=== PATIENT | female | born 1960 | race Caucasian/White ===

== ENCOUNTER 2017-03-25 22:40 | Inpatient (IN) | payer OTHER ==
[~2017-03-25] VITALS: Ht 157.5 cm; Wt 100.9 kg
[~2017-03-25 22:40] MED LIST: ALBU0.086 NEB; ALBU8I INH; CETI10 PO; FLUT1SPR9 EACH NARE; HYDR50 PO; NAPR220T95 PO; NEBUMIS6 INH; TRUSMIS52; VENTAER INH
[2017-03-25] MEDS ORDERED: IOHEXOL 350 MG/ML 10 ML VIAL (for RAD DIAG) IVCONTRAST ONE (22:41)
[2017-03-25 22:44] VITALS: BP 132/93; PULSE 129; RESP 20; TEMP 98.2; O2SAT 96
--- NOTE | 2017-03-25 22:53 | PD ---
HPI Chief Complaint: Respiratory Distress Time Seen by Provider: 22:50 Travel History International Travel<30 days: No Contact w/Intl Traveler<30days: No Traveled to known affect area: No History of Present Illness HPI The patient is a 56 year old female who presents to the [facility] emergency department with a history of shortness of breath that has been coming and going for the last 6 weeks. The patient reports that she saw her primary care physician regarding this near the onset and was treated with a Z-Samir, nebulizer treatments, a rescue inhaler, and a Medrol Dosepak taper. The patient reports that she briefly felt improved for 2 weeks and then had a recurrence of symptoms including cough, congestion, shortness of breath with exertion. She again saw her primary care physician and had a chest x-ray done which showed evidence of pneumonia, therefore the patient was treated with a course of Levaquin. She reports that she completed that course approximately a week ago. She reports that over the last 2 days she's had a recurrence of symptoms with cough that is drying character, shortness of breath with exertion and wheezing. The patient reports having a medical history of aortic stenosis followed by Dr. George. She denies having any known recent fevers. She denies having any chest pain or pressure. She reports having early say tidy with decreased appetite for the last 2 days. She denies having any nausea, vomiting, or diarrhea. She reports that she last moved her bowels earlier today. She denies having any blood in her stool or black or tarry stools. She reports that she has had increased lower extremity edema for the last 2 weeks. She denies having any prior history of DVT or PE. On review of systems otherwise, the patient denies having any neck pain, abdominal pain, urinary symptoms, or neurologic symptoms. [facility] Past Medical History Narrative Medical The patient's past medical history is significant for asthma, aortic stenosis, arthritis, carpal tunnel syndrome. Asthma: Yes Cardiovascular Problems: Yes (atrial stenosis) Diminished Hearing: No Musculoskeletal: Yes (DJD) Neurologic: Yes (CARPAL TUNNEL) Respiratory: Yes (asthma) Past Surgical History Narrative Surgical The patient's past surgical history is significant for 3 prior C-sections, bilateral hernia repair Section: Yes (X 3) Tonsillectomy: Yes Other Surgery: Yes (HERNIA REPAIR) Social History Alcohol Use: Yes (2 TIMES A YEAR) Tobacco Use: No Substance Use: No Allergies-Medications (Allergen,Severity, Reaction): Coded Allergies: doxycycline (Verified Allergy, Mild, BLURRED VISION, 03/25/17) minocycline (Verified Allergy, Mild, BLURRED VISION, 03/25/17) tigecycline (Verified Allergy, Mild, BLURRED VISION, 03/25/17) Reported Meds & Prescriptions Reported Meds & Active Scripts Active Ventolin Hfa 18 GM Inh (Albuterol Sulfate) 90 Mcg/Act Aer 2 Puff INH Q4H PRN Trusheer Stostockin1 Stocking Mis Units Flonase Allergy Relief Ch (Fluticasone Propionate (Nasal)) 50 Mcg/Act Spr 1 [place] EACH NARE DAILY Proventil Ud 0.083% (2.5 Mg/3 Ml) (Albuterol Sulfate) 2.5 Mg/3 Ml Inha 2.5 Mg NEB Q6HR Nebulizer (Miscellaneous Medication) Mis 1 Unit INH DIRECTED Cetirizine Hcl 10 Mg Tab 10 Mg PO DAILY Ventolin Hfa (Albuterol Sulfate) 8 Gm Aero 2 Puff INH Q4 PRN * SHAKE WELL BEFORE USE * Vistaril 50 Mg50 Mg 50 Mg Cap 50 Mg PO Q6H PRN Reported Aleve (Naproxen Sodium) 220 Mg Tab 220 Mg PO BID Review of Systems General / Constitutional: No: Fever Eyes: No: Visual changes HENT: No: Headaches Cardiovascular: Positive: Dyspnea on exertion, Edema, No: Chest Pain or Discomfort Respiratory: Positive: Cough, Shortness of Breath, Wheezing Gastrointestinal: Positive: Loss of Appetite, No: Nausea, Vomiting, Diarrhea, Abdominal Pain, Changes in Bowel Habits, Indigestion Genitourinary: No: Dysuria Musculoskeletal: No: Pain Skin: No Rash Neurologic: No: Weakness Psychiatric: No: Depression Endocrine: No: Polydipsia Hematologic/Lymphatic: No: Easy Bruising Physical Exam Narrative General: The patient is a well-developed well-nourished female, tachypneic on arrival, otherwise in no acute distress. Head and Neck exam: Head is normocephalic atraumatic. Eyes: EOMI, pupils are equal round and reactive to light. Nose: Midline septum with pink mucous membranes Mouth: Dentition unremarkable. Moist mucus membranes. Posterior oropharynx is not erythematous. No tonsillar hypertrophy. Uvula midline. Airway patent. Neck: No palpable lymphadenopathy. No nuchal rigidity. No thyromegaly. Cardiovascular: Sinus tachycardia in the 120s with a high-pitched systolic murmur best audible over the second intercostal space on the right. 2/6 systolic murmur. No gallops or rubs. No pulse deficit to the extremities on simultaneous auscultation and palpation of her radial artery. Lungs: Crackles are audible in bilateral lung bases, anterior wheezing was noted on the right side, no rhonchi. No accessory muscle use. Tachypnea is noted. No paroxysmal abdominal breathing or tripoding. Abdomen: Soft, without tenderness to palpation in all 4 quadrants of the abdomen. No guarding, rebound, or rigidity. Bowel sounds are audible. No tenderness on palpation of McBurney's point. Negative Teague's sign. Extremities: No clubbing or cyanosis. The patient has 1+ edema bilateral lower extremities. 2+ pulses in all 4 extremities. No calf tenderness on palpation. Negative Homans sign. No palpable cords. Back: No costovertebral angle tenderness to palpation. Neurologic Exam: Grossly nonfocal. Skin Exam: No rash noted. Intact skin that is warm and dry. Data Data Last Documented VS Vital Signs Date Time Temp Pulse Resp B/P (MAP) Pulse Ox O2 Delivery O2 Flow Rate FiO2 03/25/17 23:06 20 97 Nasal Cannula 2.00 03/25/17 22:44 98.2 129 132/93 (106) Orders Orders Electrocardiogram (03/25/17 23:04) Complete Blood Count With Diff (03/25/17 23:04) Comprehensive Metabolic Panel (03/25/17 23:04) Creatine Kinase (Cpk) (03/25/17 23:04) Ckmb (Isoenzyme) Profile (03/25/17 23:04) Troponin I (03/25/17 23:04) B-Type Natriuretic Peptide (03/25/17 23:04) Prothrombin Time / Inr (Pt) (03/25/17 23:04) Act Partial Throm Time (Ptt) (03/25/17 23:04) Blood Culture (03/25/17 23:04) D-Dimer (03/25/17 23:04) Magnesium (Mg) (03/25/17 23:04) Thyroid Stimulating Hormone (03/25/17 23:04) Chest, Single Ap (03/25/17 23:04) Iv Access Insert/Monitor (03/25/17 23:04) Ecg Monitoring (03/25/17 23:04) Oximetry (03/25/17 23:04) Lactic Acid Sepsis Protocol (03/25/17 23:04) Aspirin Chew (Aspirin Chew) (03/25/17 23:45) Nitroglycerin 2% Oint (Nitroglycerin 2% (03/25/17 23:45) Furosemide Inj (Lasix Inj) (03/25/17 23:45) Ct Pulmonary Angiogram (03/26/17 00:16) Iohexol 350 Inj (Omnipaque 350 Inj) (03/25/17 22:41) Admit Order (Ed Use Only) (03/26/17 01:38) Labs Laboratory Tests Test 03/25/17 23:00 12 23:05 White Blood Count 9.4 TH/MM3 Red Blood Count 4.73 MIL/MM3 Hemoglobin 13.5 GM/DL Hematocrit 39.7 % Mean Corpuscular Volume 83.9 FL Mean Corpuscular Hemoglobin 28.6 PG Mean Corpuscular Hemoglobin Concent 34.1 % Red Cell Distribution Width 14.5 % Platelet Count 255 TH/MM3 Mean Platelet Volume 9.1 FL Neutrophils (%) (Auto) 71.9 % Lymphocytes (%) (Auto) 19.9 % Monocytes (%) (Auto) 5.5 % Eosinophils (%) (Auto) 2.3 % Basophils (%) (Auto) 0.4 % Neutrophils # (Auto) 6.7 TH/MM3 Lymphocytes # (Auto) 1.9 TH/MM3 Monocytes # (Auto) 0.5 TH/MM3 Eosinophils # (Auto) 0.2 TH/MM3 Basophils # (Auto) 0.0 TH/MM3 CBC Comment DIFF FINAL Differential Comment Lactic Acid Level 0.8 mmol/L Prothrombin Time 10.8 SEC Prothromb Time International Ratio 1.1 RATIO Activated Partial Thromboplast Time 27.1 SEC D-Dimer Quantitative (PE/DVT) 1.12 MG/L FEU Blood Urea Nitrogen 16 MG/DL Creatinine 0.75 MG/DL Random Glucose 101 MG/DL Total Protein 7.2 GM/DL Albumin 3.6 GM/DL Calcium Level 8.6 MG/DL Magnesium Level 2.1 MG/DL Alkaline Phosphatase 89 U/L Aspartate Amino Transf (AST/SGOT) 13 U/L Alanine Aminotransferase (ALT/SGPT) 15 U/L Total Bilirubin 1.4 MG/DL Sodium Level 141 MEQ/L Potassium Level 3.8 MEQ/L Chloride Level 106 MEQ/L Carbon Dioxide Level 23.0 MEQ/L Anion Gap 12 MEQ/L Estimat Glomerular Filtration Rate 80 ML/MIN Total Creatine Kinase 88 U/L Troponin I 0.02 NG/ML B-Type Natriuretic Peptide 361 PG/ML Thyroid Stimulating Hormone 3rd Gen 2.850 uIU/ML [facility] Medical Decision Making Medical Screen Exam Complete: Yes Emergency Medical Condition: Yes Medical Record Reviewed: Yes Differential Diagnosis New-onset congestive heart failure, versus PE, versus pneumonia Narrative Course During the course of the patients emergency department visit, the patients history, examination, and differential diagnosis were reviewed with the patient. The patient was placed on a bus monitor with oximetry and frequent blood pressure monitoring. The patient had IV access obtained and blood work sent for analysis. The patient had an ECG done on arrival that shows a sinus tachycardia with occasional ectopic premature complexes, QRS duration is 89 ms, QTC 391 ms, no acute ST segment elevation or depression. The patients laboratory studies were reviewed and remarkable for a CBC that is remarkable for a normal white count with a neutrophil of 71.9. CMP is remarkable for a GFR of 80, total bilirubin 1.4, AST 13, lactic acid 0.8, TSH 2.85, BNP is 361, cardiac enzymes within normal limits, d-dimer is elevated at 1.12, PT PTT within normal limits. Radiology studies were reviewed and remarkable for a chest x-ray that reveals diffuse lower lobe consolidation suspicious for edema with pleural effusions. The patient was given Lasix 40 mg IV, nitroglycerin 1/2 inch to the chest wall, aspirin 324 mg by mouth 1. CTA of the chest reveals no pulmonary embolism, bilateral pleural effusions right greater than the left with accompanying atelectasis. The effusion on the right is moderate. The patient has calcification seen at the aortic valve level. The patients results were discussed with the patient, including the plan of care. I explained that further testing and/ or monitoring is indicated based on the patients history, examination, and/ or laboratory findings. Therefore, I recommended admission for additional evaluation. The patient expressed understanding and was agreeable with this plan. The patient was admitted to the hospital in guarded condition and sent to a bed under the care of the [facility]. Physician Communication Physician Communication The patient's case including history, pertinent physical examination findings, and laboratory studies were discussed with Dr. Husam ricci. It was agreed that the patient would be admitted to the [facility] service. Diagnosis Primary Impression: New onset of congestive heart failure Additional Impression: Bilateral pleural effusion Admitting Information Admitting Physician Requests: Admit Theresa Kaur MD Mar 25, 2017 22:53
[2017-03-25 23:06] VITALS: RESP 20; O2SAT 97
--- NOTE | 2017-03-25 23:34 | RADRPT ---
EXAM DATE/TIME: 03/25/2017 23:13 [facility] COMPARISON: No previous studies available for comparison. INDICATIONS : Shortness of breath. MEDICAL HISTORY : Asthma. SURGICAL HISTORY : None. ENCOUNTER: Initial ACUITY: 3 days PAIN SCORE: 0/10 LOCATION: Bilateral chest FINDINGS: The heart size is normal. The lungs demonstrate diffuse consolidation. There is silhouetting of the h emidiaphragms bilaterally. CONCLUSION: Diffuse consolidation likely related to edema. The silhouette of the hemidiaphragms which may represe nt effusions. Duran Chin MD on March 25, 2017 at 23:25 Board Certified Radiologist. This report was verified electronically.
[2017-03-25 23:41] LABS: AUTOMATED NEUTROPHIL # 6.7 TH/MM3 (1.8-7.7); BASOPHIL % 0.4 % (0.0-2.0); EOSINOPHIL # 0.2 TH/MM3 (0-0.4); EOSINOPHIL % 2.3 % (0.0-4.0); HEMATOCRIT 39.7 % (35.0-46.0); HEMOGLOBIN 13.5 GM/DL (11.6-15.3); LYMPH % 19.9 % (9.0-44.0); LYMPHOCYTE # 1.9 TH/MM3 (1.0-4.8); MEAN CELL VOLUME 83.9 FL (80.0-100.0); MEAN CORPUSCULAR HEMOGLOBIN 28.6 PG (27.0-34.0); MEAN CORPUSCULAR HGB CONC 34.1 % (32.0-36.0); MEAN PLATELET VOLUME 9.1 FL (7.0-11.0); MONO % 5.5 % (0.0-8.0); MONOCYTE # 0.5 TH/MM3 (0-0.9); NEUT % 71.9 % (16.0-70.0); PLATELET COUNT 255 TH/MM3 (150-450); RED BLOOD COUNT 4.73 MIL/MM3 (4.00-5.30); RED CELL DISTRIBUTION WIDTH 14.5 % (11.6-17.2); WHITE BLOOD COUNT 9.4 TH/MM3 (4.0-11.0)
[2017-03-25] MEDS ORDERED: FUROSEMIDE 40 MG/4 ML VIAL IV PUSH ONE (23:45)
[2017-03-25] MEDS ORDERED: NITROGLYCERIN 2% OINT 1 GM PACKET TOPICAL ONE (23:45)
[2017-03-25] MEDS ORDERED: ASPIRIN 81 MG CHEW TAB CHEW ONE (23:45)
[2017-03-25 23:56] LABS: ALBUMIN 3.6 GM/DL (3.4-5.0); AST (GOT) 13 U/L (15-37); BLOOD UREA NITROGEN 16 MG/DL (7-18); CALCIUM 8.6 MG/DL (8.5-10.1); CHLORIDE 106 MEQ/L (98-107); CREATININE 0.75 MG/DL (0.50-1.00); GLOMERULAR FILTRATION RATE 80 ML/MIN (>89); GLUCOSE,RANDOM 101 MG/DL (74-106); MAGNESIUM 2.1 MG/DL (1.5-2.5); SODIUM (NA) 141 MEQ/L (136-145)
[2017-03-25 23:57] LABS: ALT (GPT) 15 U/L (10-53)
[2017-03-26] VITALS (9 sets, daily range): BP systolic 104–126; BP diastolic 64–91; PULSE 107–118; RESP 16–22; TEMP 98–98.3; O2SAT 94–97
[2017-03-26 00:07] LABS: ALKALINE PHOSPHATASE 89 U/L (45-117); TOTAL BILIRUBIN ADULT 1.4 MG/DL (0.2-1.0); TOTAL PROTEIN 7.2 GM/DL (6.4-8.2); TROPONIN I 0.02 NG/ML (0.02-0.05)
[2017-03-26 00:09] LABS: INTERNATIONAL NORMALIZED RATIO 1.1 RATIO; PROTHROMBIN TIME - PATIENT 10.8 SEC (9.8-11.6)
[2017-03-26 00:11] LABS: D-DIMER 1.12 MG/L FEU (0.00-0.50)
--- NOTE | 2017-03-26 01:33 | RADRPT ---
EXAM DATE/TIME: 03/26/2017 00:42 [facility] COMPARISON: No previous studies available for comparison. INDICATIONS : Shortness of breath with elevated D-Dimer. Evaluate for embolism. IV CONTRAST: 75 cc Omnipaque 350 (iohexol) IV RADIATION DOSE: 22.31 CTDIvol (mGy) MEDICAL HISTORY : Hernia. Atrial stenosis. Asthma. SURGICAL HISTORY : section. Hernia repair. ENCOUNTER: Initial ACUITY: 1 day PAIN SCALE: 0/10 LOCATION: chest TECHNIQUE: Volumetric scanning of the chest was performed using a pulmonary embolism protocol MIP images were re constructed. Using automated exposure control and adjustment of the mA and/or kV according to patien t size, radiation dose was kept as low as reasonably achievable to obtain optimal diagnostic quality images. DICOM format image data is available electronically for review and comparison. Follow-up recommendations for detected pulmonary nodules are based at a minimum on nodule size and pa tient risk factors according to Fleischner Society Guidelines. FINDINGS: PULMONARY ARTERIES: No filling defects are seen in the pulmonary arteries through the segmental level. LUNGS: There is mild increased density at the posterior lung bases likely related to atelectasis from the ef fusions. PLEURAE: There is a moderate right pleural effusion and a mild left pleural effusion. MEDIASTINUM: There is good visualization of the great vessels of the middle mediastinum. No evidence of mediastin al or hilar adenopathy/mass. Calcifications are seen in the aortic valve level. MUSCULOSKELETAL: Within normal limits for patient age. MISCELLANEOUS: There is a minimal hiatal hernia present. CONCLUSION: 1. No pulmonary embolus. 2. Bilateral pleural effusions being greater on the right. There is accompanying atelectasis at the l melodie bases. Duran Chin MD on March 26, 2017 at 1:28 Board Certified Radiologist. This report was verified electronically.
[2017-03-26] MEDS: ENOXAPARIN SODIUM 40 MG/0.4 ML SYRINGE SQ SCH (06:24)
[2017-03-26] MEDS ORDERED: IPRA17I INH (07:11)
--- NOTE | 2017-03-26 08:38 | HHI.HP ---
HPI Service [facility] Primary Care Physician Lexi Admission Diagnosis New onset chf, bilateral pleural effusions Chief Complaint: SOB Travel History International Travel<30 Days: No Contact w/Intl Traveler <30 Da: No Traveled to Known Affected Are: No History of Present Illness The patient is a 56 year old female with a past medical history which includes asthma, aortic stenosis, arthritis, carpal tunnel syndrome. Patient presents to the [facility] emergency department with a history of shortness of breath that has been coming and going for the last 6 weeks. The patient reports that she saw her primary care physician regarding this near the onset and was treated with a Z-Samir, nebulizer treatments, a rescue inhaler, and a Medrol Dosepak taper. The patient reports that she briefly felt improved for 2 weeks and then had a recurrence of symptoms including cough, congestion, shortness of breath with exertion. She again saw her primary care physician and had a chest x-ray done which showed evidence of CHF versus pneumonia, patient was treated with a course of Levaquin. She reports that she completed that course approximately a week ago. She reports that over the last 2 days she 's had a recurrence of symptoms with nonproductive cough, shortness of breath with exertion and wheezing. Patient endorses pillow orthopnea and PND. Patient denies changes in weight. The patient reports having a medical history of aortic stenosis followed by Dr. Brown. She denies fevers, chest pain, nausea, vomiting, or diarrhea. She reports that she last moved her bowels earlier today. She denies having any blood in her stool or black or tarry stools. She reports that she has had increased lower extremity edema for the last 2 weeks. She denies having any prior history of DVT or PE. Review of Systems Constitutional: COMPLAINS OF: Fatigue, DENIES: Fever, Weight gain, Weight loss , Chills Eyes: DENIES: Blurred vision, Diplopia, Vision loss Respiratory: COMPLAINS OF: Cough, Wheezing, Shortness of breath, DENIES: Apneas , Sputum production Cardiovascular: COMPLAINS OF: Dyspnea on Exertion, PND, Lower Extremity Edema, Orthopnea, DENIES: Chest pain, Palpitations Gastrointestinal: DENIES: Abdominal pain, Constipation, Diarrhea, Nausea, Vomiting Neurologic: DENIES: Abnormal gait, Headache, Localized weakness, Speech Problems Psychiatric: DENIES: Anxiety, Confusion, Depression Past Family Social History Past Medical History asthma, aortic stenosis, arthritis, carpal tunnel syndrome. Past Surgical History 3 prior C-sections, bilateral hernia repair Reported Medications Ventolin Hfa 18 GM Inh (Albuterol Sulfate) 90 Mcg/Act Aer 2 Puff INH Q4H PRN Atrovent HFA 12.9 GM Inh (Ipratropium [place]) 17 Mcg/Actuation Aer 2 Puff INH TID Allergies: Coded Allergies: doxycycline (Verified Allergy, Mild, BLURRED VISION, 03/26/17) minocycline (Verified Allergy, Mild, BLURRED VISION, 03/26/17) tigecycline (Verified Allergy, Mild, BLURRED VISION, 03/26/17) Active Ordered Medications Current Medications Medications (Trade) Dose Ordered Sig/Agnes Route Start Time Stop Time Status Last Admin (Lasix Inj) 40 mg BID@09,18 IV PUSH 03/26/17 09:00 (Lovenox Inj) 40 mg Q24H SQ 03/26/17 06:00 03/26/17 06:24 (KCl) 20 meq DAILY PO 03/26/17 09:00 Social History Alcohol Use: Yes (2 TIMES A YEAR) Tobacco Use: No Substance Use: No Physical Exam Vital Signs Vital Signs Date Time Temp Pulse Resp B/P (MAP) Pulse Ox O2 Delivery O2 Flow Rate FiO2 03/26/17 07:11 110 18 124/91 (102) 96 Nasal Cannula 2.00 03/26/17 02:20 107 20 113/75 (88) 96 Nasal Cannula 2.00 03/25/17 23:06 20 97 Nasal Cannula 2.00 03/25/17 22:52 97 2.00 03/25/17 22:44 98.2 129 20 132/93 (106) 96 Physical Exam GENERAL: This is a well-nourished, well-developed patient, in no apparent distress. ENT: Nose without bleeding, purulent drainage or septal hematoma. Throat without erythema, tonsillar hypertrophy or exudate. Uvula midline. Airway patent. NECK: Trachea midline. No JVD or lymphadenopathy. Supple, nontender, no meningeal signs. CARDIOVASCULAR: Regular rate and rhythm RESPIRATORY: crackles bilateral lobes GASTROINTESTINAL: Abdomen soft, non-tender, nondistended. MUSCULOSKELETAL: Extremities with 2+ edema. No joint tenderness, effusion, or edema noted. No calf tenderness. Negative Homans sign bilaterally. NEUROLOGICAL: Awake and alert. No focal deficits noted. Motor and sensory grossly within normal limits. Five out of 5 muscle strength in all muscle groups. Normal speech. Laboratory Laboratory Tests Test 03/25/17 23:00 03/25/17 23:05 White Blood Count 9.4 Red Blood Count 4.73 Hemoglobin 13.5 Hematocrit 39.7 Mean Corpuscular Volume 83.9 Mean Corpuscular Hemoglobin 28.6 Mean Corpuscular Hemoglobin Concent 34.1 Red Cell Distribution Width 14.5 Platelet Count 255 Mean Platelet Volume 9.1 Neutrophils (%) (Auto) 71.9 Lymphocytes (%) (Auto) 19.9 Monocytes (%) (Auto) 5.5 Eosinophils (%) (Auto) 2.3 Basophils (%) (Auto) 0.4 Neutrophils # (Auto) 6.7 Lymphocytes # (Auto) 1.9 Monocytes # (Auto) 0.5 Eosinophils # (Auto) 0.2 Basophils # (Auto) 0.0 CBC Comment DIFF FINAL Differential Comment Lactic Acid Level 0.8 Prothrombin Time 10.8 Prothromb Time International Ratio 1.1 Activated Partial Thromboplast Time 27.1 D-Dimer Quantitative (PE/DVT) 1.12 Blood Urea Nitrogen 16 Creatinine 0.75 Random Glucose 101 Total Protein 7.2 Albumin 3.6 Calcium Level 8.6 Magnesium Level 2.1 Alkaline Phosphatase 89 Aspartate Amino Transf (AST/SGOT) 13 Alanine Aminotransferase (ALT/SGPT) 15 Total Bilirubin 1.4 Sodium Level 141 Potassium Level 3.8 Chloride Level 106 Carbon Dioxide Level 23.0 Anion Gap 12 Estimat Glomerular Filtration Rate 80 Total Creatine Kinase 88 Troponin I 0.02 B-Type Natriuretic Peptide 361 Thyroid Stimulating Hormone 3rd Gen 2.850 Date/Time Source Procedure Growth Status 03/25/17 23:05 Blood Peripheral Aerobic Blood Culture Pending Received 03/25/17 23:05 Blood Peripheral Anaerobic Blood Culture Pending Received Result Diagram: 03/25/17229903/25/172304 Imaging Last Impressions CT Angiography 03/26/1715 Signed Impressions: Service Date/Time: Sunday, March 26, 2017 00:42 - CONCLUSION: 1. No pulmonary embolus. 2. Bilateral pleural effusions being greater on the right. There is accompanying atelectasis at the lung bases. Duran Chin MD Chest X-Ray 03/25/172303 Signed Impressions: Service Date/Time: Saturday, March 25, 2017 23:13 - CONCLUSION: Diffuse consolidation likely related to edema. The silhouette of the hemidiaphragms which may represent effusions. MD Dax Johnsoni VTE Risk Assessment Caprini VTE Risk Assessment: Mod/High Risk (score >= 2) Caprini Risk Assessment Model Point Value = 1 Point Value = 2 Point Value = 3 Point Value = 5 Age 41-60 Minor surgery BMI > 25 kg/m2 Swollen legs Varicose veins or History of unexplained or recurrent spontaneous Oral contraceptives or hormone replacement Sepsis (< 1 month) Serious lung disease, including pneumonia (< 1 month) Abnormal pulmonary function Acute myocardial infarction Congestive heart failure (< 1 month) History of inflammatory bowel disease Medical patient at bed rest Age 61-74 Arthroscopic surgery Major open surgery (> 45 min) Laparoscopic surgery (> 45 min) Malignancy Confined to bed (> 72 hours) Immobilizing plaster cast Central venous access Age >= 75 History of VTE Family history of VTE Factor V Leiden Prothrombin [id number] Lupus anticoagulant Anticardiolipin antibodies Elevated serum homocysteine Heparin-induced thrombocytopenia Other congenital or acquired thrombophilia Stroke (< 1 month) Elective arthroplasty Hip, pelvis, or leg fracture Acute spinal cord injury (< 1 month) Prophylaxis Regimen Total Risk Factor Score Risk Level Prophylaxis Regimen 0-1 Low Early ambulation 2 Moderate Order ONE of the following: *Sequential Compression Device (SCD) *Heparin 5000 units SQ BID 3-4 Higher Order ONE of the following medications: *Heparin 5000 units SQ TID *Enoxaparin/Lovenox 40 mg SQ daily (WT < 150 kg, CrCl > 30 mL/min) *Enoxaparin/Lovenox 30 mg SQ daily (WT < 150 kg, CrCl > 10-29 mL/min) *Enoxaparin/Lovenox 30 mg SQ BID (WT < 150 kg, CrCl > 30 mL/min) AND/OR *Sequential Compression Device (SCD) 5 or more Highest Order ONE of the following medications: *Heparin 5000 units SQ TID (Preferred with Epidurals) *Enoxaparin/Lovenox 40 mg SQ daily (WT < 150 kg, CrCl > 30 mL/min) *Enoxaparin/Lovenox 30 mg SQ daily (WT < 150 kg, CrCl > 10-29 mL/min) *Enoxaparin/Lovenox 30 mg SQ BID (WT < 150 kg, CrCl > 30 mL/min) AND *Sequential Compression Device (SCD) Assessment and Plan Problem List: (1) New onset of congestive heart failure ICD Codes: I50.9 - Heart failure, unspecified Status: Acute Plan: patient has history of aortic stenosis and follows with Dr. Brown as outpatient consult cardiology, appreciate input Per cardiology last echo 10/31/2016 revealed Moderate aortic stenosis mean transvalvular aortic gradient of 33 mmHg with ejection fraction of 65%. 2 D echocardiogram pending Lasix 40 mg IV BID, with potassium monitor BMP (2) Bilateral pleural effusion ICD Codes: J90 - Pleural effusion, not elsewhere classified Status: Acute Plan: chest x-ray that reveals diffuse lower lobe consolidation suspicious for edema with pleural effusions. D-dimmer elevated 1.12 CTA of the chest reveals no pulmonary embolism, bilateral pleural effusions right greater than the left with accompanying atelectasis. The effusion on the right is moderate. The patient has calcification seen at the aortic valve level. will consult radiology for US guided thoracentesis patient on IV lasix BID 2+ BLE edema US ordered to r/o DVT DVT prophylaxis with Lovenox 40 mg SQ daily Discharge planning Plan to DC in 2-3 days Patient requiring IV lasix and supplemental oxygen Thoracentesis requested and pending Assessment and Plan Patient examined. Assessment and plan formulated with Tameka Brody PA-C. I agree with the above. Pt much more comfortable from admission. Pt less SOB. - continue IV lasix - obtain right thoracentesis, diagnostic & therapeutic - await echocardiogram - appreciate input from Cardiology - Pt had elevated D-dimer, but CTA negative for PE - Pt c/o calf pain. obtain b/l LE US, r/o DVTs Tameka Brody Mar 26, 2017 08:38 Mauro Mendez DO Mar 26, 2017 13:33
--- NOTE | 2017-03-26 08:55 | EKG ---
Date Performed: 03/25/2017 Time Performed: 22:48:18 PTAGE: 56 years EKG: SINUS TACHYCARDIA WITH OCCASIONAL ECTOPIC PREMATURE COMPLEXES NONSPECIFIC T-WAVE ABNORMALIT Y ABNORMAL RHYTHM ECG Compared to prior electrocardiogram, Rate has increased and ectopic beats are p resent. PREVIOUS TRACING : 05/06/1997 09.49 DOCTOR: Keo Saez Interpretating Date/Time 03/26/2017 08:55:00
[2017-03-26] MEDS: POTASSIUM CHLORIDE 20 MEQ CONTROLLED RELEASE TAB PO SCH (09:57)
[2017-03-26] MEDS: FUROSEMIDE 40 MG/4 ML VIAL IV PUSH SCH ×2 (09:58→17:11)
--- NOTE | 2017-03-26 10:07 | MB ---
cc: EL BROWN MD, GLENN H. M.D. DATE OF CONSULTATION: 03/26/2017 REASON FOR CONSULTATION Congestive heart failure, aortic stenosis. HISTORY OF PRESENT ILLNESS The patient is a 56-year-old white female, followed in our office by Dr. El Brown, with a history of asthma, moderate aortic stenosis, hypertension, who for the past several weeks has been having difficulties with dyspnea. Initially her primary care physician thought she was having trouble with bronchitis and she was treated with a number of antibiotics, steroids, bronchodilators with transient improvement in her symptoms. A chest x-ray was obtained about 2 weeks ago apparently showing congestive heart failure versus pneumonia. She was tried on one more antibiotic, Levaquin, with transient improvement in her symptoms. However, over the last 3 days she has experienced once again increasing dyspnea with minimal to no exertion. She denies chest pain, dizziness, syncope, near-syncope. She has had very minimal right greater than left pedal edema in the last few weeks. The patient does experience two to three pillow orthopnea without paroxysmal nocturnal dyspnea. She also denies fevers, hemoptysis, pleurisy. PAST MEDICAL HISTORY 1. Asthma. 2. Hypertension. 3. Moderate aortic stenosis with her last echocardiogram 10/31/2016 showing a mean transvalvular aortic gradient of 33 mmHg with ejection fraction of 65%. MEDICATION Her cardiac medications at home: None. ALLERGIES DOXYCYCLINE, MINOCYCLINE, TIGECYCLINE. FAMILY HISTORY Noncontributory. SOCIAL HISTORY The patient denies alcohol or tobacco abuse. REVIEW OF SYSTEMS Review of systems as in the history of present illness, otherwise negative or noncontributory. So also denies headache, abdominal pain, melena, dyspepsia, bright red blood per rectum. PHYSICAL EXAMINATION VITAL SIGNS: On physical examination her blood pressure 124/90 with a pulse of 110, respirations 18. GENERAL: She is a well-developed, well-nourished white female in no acute distress. HEENT: Jugular venous pressure is normal. Carotid pulses are 2+ bilaterally without bruits. CHEST: Examination of the chest reveals diminished breath sounds at the bases. CARDIAC: On cardiac examination she has a tachycardic regular rhythm with a grade 2/6 systolic ejection murmur heard at the base of the heart. The S2 heart sound is mildly diminished. No gallop is audible. ABDOMEN: On abdominal examination she has a soft, obese, nontender abdomen. Bowel sounds are present. There is no definite hepatosplenomegaly. EXTREMITIES: Examination of the extremities reveals no clubbing or cyanosis. There is trace pretibial edema bilaterally. LABORATORY DATA Laboratory data includes normal CBC, potassium 3.8, BUN 16, creatinine 0.75. Brain natriuretic peptide level 361, CK 88, troponin 0.02. IMAGING STUDIES Chest x-ray shows "diffuse consolidation likely related to edema". EKG Shows sinus tachycardia, nonspecific T-wave abnormalities. IMPRESSION Possible congestive heart failure in this 56-year-old white female with a history of asthma, aortic stenosis, hypertension. The precipitating factor for her congestive heart failure is not entirely clear. By exam and by echo about 5 months ago her aortic stenosis appears to be at most moderate. She has had no definite evidence for arrhythmias. There is no evidence for acute coronary syndrome. Cardiac enzymes are negative. No acute ST-segment or T-wave changes are seen on EKG. RECOMMENDATIONS 1. Recheck her echo. 2. Continue intravenous Lasix diuresis. MD DANO Gonzalez/HEIKE /8:39 AM /9:52 AM ARLINE
[2017-03-26 13:06] LABS: BICARBONATE 31.4 MEQ/L (21.0-32.0); CALCIUM 8.9 MG/DL (8.5-10.1); CREATININE 0.88 MG/DL (0.50-1.00)
--- NOTE | 2017-03-26 15:56 | RADRPT ---
EXAM DATE/TIME: 03/26/2017 14:50 [facility] COMPARISON: No previous studies available for comparison. EXTERNAL COMPARISON : [facility], [facility] LEG, RIGHT VENOUS DOPPLER September 29, 2015. INDICATIONS : Bilateral leg swelling. MEDICAL HISTORY : Carpal tunnel. Atrial stenosis. Asthma. SURGICAL HISTORY : Tonsillectomy. section. Hernia repair. ENCOUNTER: Subsequent ACUITY: 1 day PAIN SCORE: 4/10 LOCATION: Bilateral legs. TECHNIQUE: Venous ultrasound of the left and right leg was performed from the inguinal ligament to the proximal calf. Real-time, color Doppler and spectral tracing, compression and augmentation techniques were us ed. FINDINGS: RIGHT LEG: There is normal compressibility of the deep venous system from the inguinal region to the proximal ca lf. No echogenic clot is seen in the lumen of the common femoral, femoral, popliteal, and posterior tibial veins. There is a normal response of the venous system to proximal and distal augmentation an d respiration. LEFT LEG: There is normal compressibility of the deep venous system from the inguinal region to the proximal ca lf. No echogenic clot is seen in the lumen of the common femoral, femoral, popliteal, and posterior tibial veins. There is a normal response of the venous system to proximal and distal augmentation an d respiration. CONCLUSION: Normal examination. Nickolas Platt Jr., MD on March 26, 2017 at 15:53 Board Certified Radiologist. This report was verified electronically.
[2017-03-27] VITALS (12 sets, daily range): BP systolic 86–121; BP diastolic 51–81; PULSE 86–116; RESP 18–20; TEMP 97.4–98.3; O2SAT 92–96
[2017-03-27] MEDS: ENOXAPARIN SODIUM 40 MG/0.4 ML SYRINGE SQ SCH (05:45)
[2017-03-27] MEDS: ACETAMINOPHEN 325 MG TAB PO PRN ×2 (07:15→21:19)
--- NOTE | 2017-03-27 09:25 | PD.CARD.PN ---
Subjective Subjective Remarks No CP, dyspnea, PND, palpitations, dizziness, near syncope. Orthopnea persists. Objective Medications Item Value Date Time Furosemide 40 mg 03/26/17 0900 (Lasix Inj) BID@/IV PUSH 03/26/17 1711 Potassium Chloride 20 meq 03/26/17 0900 (KCl) DAILY/PO 03/26/17 0957 Enoxaparin Sodium 40 mg 03/26/17 0600 (Lovenox Inj) Q24H/SQ Current Medications Medications (Trade) Dose Ordered Sig/Agnes Route Start Time Stop Time Status Last Admin (Lasix Inj) 40 mg BID@ IV PUSH 03/26/17 09:00 03/26/17 17:11 (Lovenox Inj) 40 mg Q24H SQ 03/26/17 06:00 03/26/17 06:24 (KCl) 20 meq DAILY PO 03/26/17 09:00 03/26/17 09:57 (Tylenol) 650 mg Q6H PRN PO 03/27/17 04:00 03/27/17 07:15 Vital Signs / I&O Vital Signs Date Time Temp Pulse Resp B/P (MAP) Pulse Ox O2 Delivery O2 Flow Rate FiO2 03/27/17 08:00 98.3 113 20 121/81 (94) 95 03/27/17 04:27 98.0 109 20 107/75 (86) 94 03/27/17 04:00 111 03/27/17 00:00 111 03/26/17 23:16 98.2 109 20 126/64 (84) 95 03/26/17 23:01 95 Room Air 2.00 03/26/17 20:08 98.3 116 19 121/79 (93) 94 03/26/17 20:00 109 03/26/17 18:36 Room Air 03/26/17 16:00 98.0 111 22 119/81 (94) 96 03/26/17 14:00 118 03/26/17 13:40 98.2 114 20 118/82 (94) 95 03/26/17 09:56 107 16 104/72 (83) 97 Nasal Cannula 2.00 I/O 03/26/17 03/26/17 03/26/17 03/27/17 03/27/17 03/27/17 07:00 15:00 23:00 07:00 15:00 23:00 Intake Total 180 ml Output Total 300 ml 900 ml Balance -300 ml -720 ml Intake Oral 180 ml Output Urine Total 300 ml 900 ml # Bowel Movements 0 Physical Exam GENERAL: Well developed, well nourished. No acute distress. HEENT: Jugular venous pressure is normal. CHEST: Lungs clear to auscultation bilaterally. Unlabored respiratory effort. CARDIAC: Regular rate and rhythm without S3, S4. II/ KARINE base with mildly diminished S2. ABDOMEN: Soft, nontender, no hepatosplenomegaly. Bowel sounds present. EXTREMITIES: No clubbing, cyanosis, or edema. Laboratory Laboratory Tests Test 03/26/17 11:38 Blood Urea Nitrogen 16 MG/DL Creatinine 0.88 MG/DL Random Glucose 73 MG/DL Calcium Level 8.9 MG/DL Sodium Level 137 MEQ/L Potassium Level 3.7 MEQ/L Chloride Level 101 MEQ/L Carbon Dioxide Level 31.4 MEQ/L Anion Gap 5 MEQ/L Estimat Glomerular Filtration Rate 66 ML/MIN Lactate Dehydrogenase 269 U/L Assessment and Plan Problem List: (1) Congestive heart failure (CHF) ICD Codes: I50.9 - Heart failure, unspecified Plan: Symptomatically much improved after fairly good diuresis since admission. Echo technically difficult, appears to show overall normal LV function, unchanged mild aortic stenosis with mean gradient 22 mm Hg. Difficult to rule out diastolic dysfunction as contributor to her CHF. REC add beta rogers carvedilol 3.125 mg bid can change to oral furosemide OK to discharge today from cardiac standpoint if ambulating halls without difficulty, 3 week f/u with Dr. Brown (2) Aortic stenosis ICD Codes: I35.0 - Nonrheumatic aortic (valve) stenosis Status: Chronic Plan: Echo technically difficult, appears to show overall normal LV function, unchanged mild aortic stenosis with mean gradient [address] Brown to chronically f/u her . (3) Wide QRS ventricular tachycardia ICD Codes: I47.2 - Ventricular tachycardia Status: Acute Plan: Patient with about 4 short salvoes of asymptomatic wide complex tachyarrhythmias last night. Suspect they were aberrantly conducted SVT, possibly atrial tach, though cannot rule out NSVT. EF normal by echo. REC check K this morning add carvedilol as above Code Status full code Discussed Condition With patient Problem Qualifiers (1) Congestive heart failure (CHF): Qualified Codes: I50.9 - Heart failure, unspecified (2) Aortic stenosis: Qualified Codes: I35.0 - Nonrheumatic aortic (valve) stenosis Pk Baldwin MD Mar 27, 2017 09:25
[2017-03-27] MEDS: CARVEDILOL 3.125 MG TAB PO SCH ×2 (09:36→21:13)
[2017-03-27] MEDS: POTASSIUM CHLORIDE 20 MEQ CONTROLLED RELEASE TAB PO SCH (09:36)
[2017-03-27] MEDS: FUROSEMIDE 20 MG TAB PO SCH (09:39)
--- NOTE | 2017-03-27 10:20 | RADRPT ---
EXAM DATE/TIME: 03/27/2017 08:02 [facility] COMPARISON: CT PULMONARY ANGIOGRAM, March 26, 2017, 0:42. INDICATIONS : Right pleural effusion. MEDICAL HISTORY : Cardiac disorder. SURGICAL HISTORY : section. ENCOUNTER: Initial ACUITY: 3 days PAIN SCORE: 0/10 LOCATION: Right chest MEASUREMENTS: SKIN TO PARIETAL PLEURA: Inadequate fluid SKIN TO MAX SAFE DEPTH: Inadequate fluid ESTIMATED FLUID VOLUME: 152 cc FLUID COMPOSITION: simple FINDINGS: Sonographic images of the right chest were performed. There is a small amount of pleural fluid measur ing 150 mL. This volume of fluid is less than what was seen on the CTA performed yesterday. CONCLUSION: Small right effusion with insufficient volume for safe thoracentesis. The size of the effusion is sma ller when compared to the prior CTA. Nickolas Platt Jr., MD on March 27, 2017 at 10:14 Board Certified Radiologist. This report was verified electronically.
--- NOTE | 2017-03-27 12:47 | HHI.PR ---
Subjective Remarks Patient up ambulating around the room reports breathing has improved offers no specific complaints HR elevated 100- 1teens Objective Vitals Vital Signs Date Time Temp Pulse Resp B/P (MAP) Pulse Ox O2 Delivery O2 Flow Rate FiO2 03/27/17 08:00 98.3 113 20 121/81 (94) 95 03/27/17 04:27 98.0 109 20 107/75 (86) 94 03/27/17 04:00 111 03/27/17 00:00 111 03/26/17 23:16 98.2 109 20 126/64 (84) 95 03/26/17 23:01 95 Room Air 2.00 03/26/17 20:08 98.3 116 19 121/79 (93) 94 03/26/17 20:00 109 03/26/17 18:36 Room Air 03/26/17 16:00 98.0 111 22 119/81 (94) 96 03/26/17 14:00 118 03/26/17 13:40 98.2 114 20 118/82 (94) 95 Result Diagram: 03/25/17 2300 03/26/17 1138 Other Results Laboratory Tests Test 03/25/17 23:00 03/25/17 23:05 03/26/17 11:38 White Blood Count 9.4 TH/MM3 Red Blood Count 4.73 MIL/MM3 Hemoglobin 13.5 GM/DL Hematocrit 39.7 % Mean Corpuscular Volume 83.9 FL Mean Corpuscular Hemoglobin 28.6 PG Mean Corpuscular Hemoglobin Concent 34.1 % Red Cell Distribution Width 14.5 % Platelet Count 255 TH/MM3 Mean Platelet Volume 9.1 FL Neutrophils (%) (Auto) 71.9 % Lymphocytes (%) (Auto) 19.9 % Monocytes (%) (Auto) 5.5 % Eosinophils (%) (Auto) 2.3 % Basophils (%) (Auto) 0.4 % Neutrophils # (Auto) 6.7 TH/MM3 Lymphocytes # (Auto) 1.9 TH/MM3 Monocytes # (Auto) 0.5 TH/MM3 Eosinophils # (Auto) 0.2 TH/MM3 Basophils # (Auto) 0.0 TH/MM3 CBC Comment DIFF FINAL Differential Comment Lactic Acid Level 0.8 mmol/L Prothrombin Time 10.8 SEC Prothromb Time International Ratio 1.1 RATIO Activated Partial Thromboplast Time 27.1 SEC D-Dimer Quantitative (PE/DVT) 1.12 MG/L FEU Blood Urea Nitrogen 16 MG/DL 16 MG/DL Creatinine 0.75 MG/DL 0.88 MG/DL Random Glucose 101 MG/DL 73 MG/DL Total Protein 7.2 GM/DL Albumin 3.6 GM/DL Calcium Level 8.6 MG/DL 8.9 MG/DL Magnesium Level 2.1 MG/DL Alkaline Phosphatase 89 U/L Aspartate Amino Transf (AST/SGOT) 13 U/L Alanine Aminotransferase (ALT/SGPT) 15 U/L Total Bilirubin 1.4 MG/DL Sodium Level 141 MEQ/L 137 MEQ/L Potassium Level 3.8 MEQ/L 3.7 MEQ/L Chloride Level 106 MEQ/L 101 MEQ/L Carbon Dioxide Level 23.0 MEQ/L 31.4 MEQ/L Anion Gap 12 MEQ/L 5 MEQ/L Estimat Glomerular Filtration Rate 80 ML/MIN 66 ML/MIN Total Creatine Kinase 88 U/L Troponin I 0.02 NG/ML B-Type Natriuretic Peptide 361 PG/ML Thyroid Stimulating Hormone 3rd Gen 2.850 uIU/ML Lactate Dehydrogenase 269 U/L Imaging Last Impressions CT Angiography 03/26/17 0016 Signed Impressions: Service Date/Time: Sunday, March 26, 2017 00:42 - CONCLUSION: 1. No pulmonary embolus. 2. Bilateral pleural effusions being greater on the right. There is accompanying atelectasis at the lung bases. Duran Chin MD Chest X-Ray 03/25/17 6425 Signed Impressions: Service Date/Time: Saturday, March 25, 2017 23:13 - CONCLUSION: Diffuse consolidation likely related to edema. The silhouette of the hemidiaphragms which may represent effusions. Duran Chin MD Objective Remarks GENERAL: This is a well-nourished, well-developed patient, in no apparent distress. NECK: Trachea midline. No JVD or lymphadenopathy. Supple, nontender, no meningeal signs. CARDIOVASCULAR: tachycardic RESPIRATORY: clear through out GASTROINTESTINAL: Abdomen soft, non-tender, nondistended. MUSCULOSKELETAL: bilateral lower extremities with nonpitting edema. No joint tenderness, effusion, or edema noted. No calf tenderness. Negative Homans sign bilaterally. NEUROLOGICAL: Awake and alert. No focal deficits noted. Motor and sensory grossly within normal limits. Five out of 5 muscle strength in all muscle groups. Normal speech. A/P Problem List: (1) New onset of congestive heart failure ICD Codes: I50.9 - Heart failure, unspecified Status: Acute Plan: patient has history of aortic stenosis and follows with Dr. Brown as outpatient consult cardiology, appreciate input Per cardiology last echo 10/31/2016 revealed Moderate aortic stenosis mean transvalvular aortic gradient of 33 mmHg with ejection fraction of 65%. 2 D echocardiogram per cardiology note - Echo technically difficult, appears to show overall normal LV function, unchanged mild aortic stenosis with mean gradient 22 mm Hg Lasix 40 mg IV BID, with potassium -> transitioned to lasix 20 mg PO daily per cardiology Coreg added per cardiology patient remains tachycardic telemetry consistent with ST will check 12 lead EKG TSH and T4 ordered (2) Bilateral pleural effusion ICD Codes: J90 - Pleural effusion, not elsewhere classified Status: Acute Plan: chest x-ray that reveals diffuse lower lobe consolidation suspicious for edema with pleural effusions. D-dimmer elevated 1.12 CTA of the chest reveals no pulmonary embolism, bilateral pleural effusions right greater than the left with accompanying atelectasis. The effusion on the right is moderate. The patient has calcification seen at the aortic valve level. will consult radiology for US guided thoracentesis -> Chest US revealed small right effusion insufficient volume for safe thoracentesis patient on IV lasix BID -> transitioned to PO per cardiology BLE US normal exam DVT prophylaxis with Lovenox 40 mg SQ daily Discharge planning Plan to DC home tomorrow if stable If patient continues to have low rate ST will DC home with Holter monitor Assessment and Plan Patient examined. Assessment and plan formulated with Tameka Brody PA-C. I agree with the above. Tameka Brody Mar 27, 2017 12:47 Mauro Mendez DO Mar 31, 2017 01:56
[2017-03-27 13:54] LABS: BICARBONATE 32.2 MEQ/L (21.0-32.0); CALCIUM 8.7 MG/DL (8.5-10.1); CREATININE 0.98 MG/DL (0.50-1.00)
--- NOTE | 2017-03-27 15:47 | ECHRPT ---
Indication: Heart failure, unspecified CONCLUSIONS The left ventricular systolic function is mildly reduced with an estimated ejection fraction in the range of 45- 50%. Normal left ventricular size. Wall thickness is normal. The right ventricular size is normal. The right ventricular systoilc function is normal. The aortic root and proximal ascending aorta are not well visualized. [id number] mitral valve regurgitation. Moderate thickening of the aortic valve leaflets. Trace aortic valve regurgitation. Mild to moderate aortic valve stenosis (see additional note below) No tricuspid regurgitation. Additional imaging of AoV performed;though gradients only modest, valve appears significantly stenot ic; consider (significant) low gradeint aortic stenosis. BP: 113 / 75 HR: 107 Rhythm: MEASUREMENTS (Male / Female) Normal Values Technical Quality: 2D ECHO LV Diastolic Diameter PLAX 4.8 cm 4.2 - 5.9 / 3.9 - 5.3 cm LV Systolic Diameter PLAX 3.6 cm IVS Diastolic Thickness 1.2 cm 0.6 - 1.0 / 0.6 - 0.9 cm LVPW Diastolic Thickness 1.2 cm 0.6 - 1.0 / 0.6 - 0.9 cm LV Relative Wall Thickness 0.5 RV Internal Dim ED PLAX 2.3 cm LVOT Diameter 1.9 cm M-MODE Aortic Root Diameter MM 3.4 cm LA Systolic Diameter MM 4.0 cm LA Ao Ratio MM 1.2 AV Cusp Separation MM 1.3 cm DOPPLER AV Peak Velocity 291.5 cm/s AV Peak Gradient 34.0 mmHg AV Mean Gradient 21.5 mmHg AV Velocity Time Integral 59.0 cm LVOT Peak Velocity 70.1 cm/s LVOT Peak Gradient 2.0 mmHg LVOT Velocity Time Integral 16.3 cm AV Area Cont Eq vti 0.8 cm AV Area Cont Eq pk 0.7 cm Mitral E Point Velocity 146.0 cm/s Mitral A Point Velocity 93.8 cm/s Mitral E to A Ratio 1.6 FINDINGS LEFT VENTRICLE The left ventricular systolic function is mildly reduced with an estimated ejection fraction in the range of 45- 50%. Normal left ventricular size. Wall thickness is normal. RIGHT VENTRICLE The right ventricular size is normal. The right ventricular systoilc function is normal. LEFT ATRIUM The left atrial size is normal. RIGHT ATRIUM The right atrial size is normal. ATRIAL SEPTUM Normal atrial septal thickness without atrial level shunting by limited color doppler interrogation. AORTA The aortic root and proximal ascending aorta are not well visualized. MITRAL VALVE Structurally normal mitral valve. [id number] mitral valve regurgitation. AORTIC VALVE Moderate thickening of the aortic valve leaflets. Trace aortic valve regurgitation. Mild to moderate aortic valve stenosis. TRICUSPID VALVE Structurally normal tricuspid valve. No tricuspid regurgitation. PULMONARY VALVE No pulmonary valve regurgitation or stenosis. VESSELS The inferior vena cava is normal in size. PERICARDIUM No pericardial effusion. El Brown MD (Electronically Signed) Final Date:27 March 2017 15:45 Amended: 28 March 2017 07:48
[2017-03-27] MEDS ORDERED: CARV3.125 PO (18:29)
[2017-03-27] MEDS ORDERED: FURO20TA PO (18:29)
[2017-03-27] MEDS ORDERED: KLOR10TA PO (18:29)
[2017-03-28 03:18] VITALS: BP 101/66; PULSE 84; RESP 18; TEMP 97.8; O2SAT 94
[2017-03-28 03:50] VITALS: PULSE 50; PULSE 81
[2017-03-28] MEDS: ENOXAPARIN SODIUM 40 MG/0.4 ML SYRINGE SQ SCH (05:26)
[2017-03-28 08:00] VITALS: BP 111/77; PULSE 89; RESP 18; TEMP 97.6; O2SAT 97
--- NOTE | 2017-03-28 08:21 | HHI.DCPOC ---
Discharge Care Plan Diagnosis: (1) Congestive heart failure (CHF) (2) Bilateral pleural effusion Goals to Promote Your Health * To prevent worsening of your condition and complications * To maintain your health at the optimal level Directions to Meet Your Goals Take your medications as prescribed Follow your dietary instruction Follow activity as directed Keep your appointments as scheduled Take your immunizations and boosters as scheduled If your symptoms worsen call your PCP, if no PCP go to Urgent Care Center or Emergency Room Smoking is Dangerous to Your Health. Avoid second hand smoke Call the 24-hour hour crisis hotline for domestic abuse at Tameka Brody Mar 28, 2017 08:21 Mauro Mendez DO Mar 31, 2017 01:57
--- NOTE | 2017-03-28 08:21 | HHI.DS ---
Discharge Summary Admission Date Mar 26, 2017 at 01:40 Discharge Date: Mar 28, 2017 Admitting Diagnosis New onset chf, bilateral pleural effusions (1) New onset of congestive heart failure Diagnosis: Principal ICD Codes: I50.9 - Heart failure, unspecified Status: Acute (2) Bilateral pleural effusion Diagnosis: Principal ICD Codes: J90 - Pleural effusion, not elsewhere classified Status: Acute Consultants Dr. Baldwin Procedures none Brief History The patient is a 56 year old female with a past medical history which includes asthma, aortic stenosis, arthritis, carpal tunnel syndrome. Patient presents to the [facility] emergency department with a history of shortness of breath that has been coming and going for the last 6 weeks. The patient reports that she saw her primary care physician regarding this near the onset and was treated with a Z-Samir, nebulizer treatments, a rescue inhaler, and a Medrol Dosepak taper. The patient reports that she briefly felt improved for 2 weeks and then had a recurrence of symptoms including cough, congestion, shortness of breath with exertion. She again saw her primary care physician and had a chest x-ray done which showed evidence of CHF versus pneumonia, patient was treated with a course of Levaquin. She reports that she completed that course approximately a week ago. She reports that over the last 2 days she 's had a recurrence of symptoms with nonproductive cough, shortness of breath with exertion and wheezing. Patient endorses pillow orthopnea and PND. Patient denies changes in weight. The patient reports having a medical history of aortic stenosis followed by Dr. Brown. She denies fevers, chest pain, nausea, vomiting, or diarrhea. She reports that she last moved her bowels earlier today. She denies having any blood in her stool or black or tarry stools. She reports that she has had increased lower extremity edema for the last 2 weeks. She denies having any prior history of DVT or PE. CBC/BMP: 03/25/17 2300 03/27/17 1250 Significant Findings Laboratory Tests Test 03/25/17 23:00 03/25/17 23:05 03/26/17 11:38 03/27/17 12:50 Neutrophils (%) (Auto) 71.9 % (16.0-70.0) D-Dimer Quantitative (PE/DVT) 1.12 MG/L FEU (0.00-0.50) Aspartate Amino Transf (AST/SGOT) 13 U/L (15-37) Total Bilirubin 1.4 MG/DL (0.2-1.0) Estimat Glomerular Filtration Rate 80 ML/MIN (>89) 66 ML/MIN (>89) 59 ML/MIN (>89) B-Type Natriuretic Peptide 361 PG/ML (0-100) Random Glucose 73 MG/DL (74-106) 126 MG/DL (74-106) Lactate Dehydrogenase 269 U/L (84-246) Blood Urea Nitrogen 21 MG/DL (7-18) Carbon Dioxide Level 32.2 MEQ/L (21.0-32.0) Imaging Last Impressions Chest Ultrasound 03/27/17 0000 Signed Impressions: Service Date/Time: March 08:02 - CONCLUSION: Small right effusion with insufficient volume for safe thoracentesis. The size of the effusion is smaller when compared to the prior CTA. Nickolas Platt Jr., MD CT Angiography 03/26/17 0016 Signed Impressions: Service Date/Time: Sunday, March 26, 2017 00:42 - CONCLUSION: 1. No pulmonary embolus. 2. Bilateral pleural effusions being greater on the right. There is accompanying atelectasis at the lung bases. Duran Chin MD Lower Extremity Ultrasound 03/26/17 0000 Signed Impressions: Service Date/Time: Sunday, March 26, 2017 14:50 - CONCLUSION: Normal examination. Nickolas Platt Jr., MD Chest X-Ray 03/25/17 2304 Signed Impressions: Service Date/Time: Saturday, March 25, 2017 23:13 - CONCLUSION: Diffuse consolidation likely related to edema. The silhouette of the hemidiaphragms which may represent effusions. Duran Chin MD PE at Discharge GENERAL: This is a well-nourished, well-developed patient, in no apparent distress. NECK: Trachea midline. No JVD or lymphadenopathy. Supple, nontender, no meningeal signs. CARDIOVASCULAR: tachycardic RESPIRATORY: clear through out GASTROINTESTINAL: Abdomen soft, non-tender, nondistended. MUSCULOSKELETAL: bilateral lower extremities with nonpitting edema. No joint tenderness, effusion, or edema noted. No calf tenderness. Negative Homans sign bilaterally. NEUROLOGICAL: Awake and alert. No focal deficits noted. Motor and sensory grossly within normal limits. Five out of 5 muscle strength in all muscle groups. Normal speech. Hospital Course New onset of congestive heart failure patient has history of aortic stenosis and follows with Dr. Brown as outpatient consult cardiology, appreciate input Per cardiology last echo 10/31/2016 revealed Moderate aortic stenosis mean transvalvular aortic gradient of 33 mmHg with ejection fraction of 65%. 2 D echocardiogram per cardiology note - Echo technically difficult, appears to show overall normal LV function, unchanged mild aortic stenosis with mean gradient 22 mm Hg Lasix 40 mg IV BID, with potassium -> transitioned to lasix 20 mg PO daily per cardiology Coreg added per cardiology 03/27 patient remains tachycardic telemetry consistent with ST, 12 lead EKG was ordered but was never obtained 03/28 patient HR improved telemetry showing SR TSH 2.85 Bilateral pleural effusion chest x-ray that reveals diffuse lower lobe consolidation suspicious for edema with pleural effusions. D-dimmer elevated 1.12 CTA of the chest reveals no pulmonary embolism, bilateral pleural effusions right greater than the left with accompanying atelectasis. The effusion on the right is moderate. The patient has calcification seen at the aortic valve level. will consult radiology for US guided thoracentesis -> Chest US revealed small right effusion insufficient volume for safe thoracentesis patient on IV lasix BID -> transitioned to PO per cardiology BLE US normal exam Elevated blood glucose on BMP HA1c ordered to be drawn prior to DC Patient to follow up with PCP regarding HA1c results DVT prophylaxis with Lovenox 40 mg SQ daily Pt Condition on Discharge: Stable Discharge Disposition: Discharge Home Discharge Instructions DIET: Follow Instructions for: As Tolerated, No Restrictions Activities you can perform: Regular-No Restrictions Follow up Referrals: Cardiology - 2 Weeks with El Brown MD PCP Follow-up - [address] Elliott New Orders: BASIC METABOLIC PROF - 1 Week New Medications: Carvedilol (Coreg) 3.125 Mg Tab 3.125 MG PO Q12HR for heart, #60 TAB 0 Refills Furosemide (Furosemide) 20 Mg Tab 20 MG PO DAILY for heart/ fluid, #30 TAB 0 Refills Potassium Chloride ER (Klor-Con 10) 10 Meq Tab 10 MEQ PO DAILY for supplement, #30 TAB 0 Refills Continued Medications: Albuterol 18 GM Inh (Ventolin Hfa 18 GM Inh) 90 Mcg/Act Aer 2 PUFF INH Q4H PRN for SHORTNESS OF BREATH, #1 INHALER 3 Refills Ipratropium HFA 12.9 GM Inh (Atrovent HFA 12.9 GM Inh) 17 Mcg/Actuation Aer 2 PUFF INH TID, #1 INHALER 0 Refills Additional Information Patient examined. Assessment and plan formulated with Tameka Brody PA-C. I agree with the above. Tameka Brody Mar 28, 2017 08:21 Mauro Mendez DO Mar 31, 2017 01:57
[2017-03-28] MEDS: CARVEDILOL 3.125 MG TAB PO SCH (08:48)
[2017-03-28] MEDS: FUROSEMIDE 20 MG TAB PO SCH (08:48)
[2017-03-28] MEDS ORDERED: POTASSIUM CHLORIDE 10 MEQ CONTROLLED RELEASE TAB PO SCH (09:00)
[2017-03-28 11:57] LABS: BICARBONATE 28.4 MEQ/L (21.0-32.0); CALCIUM 8.6 MG/DL (8.5-10.1); CREATININE 0.9 MG/DL (0.50-1.00)
[2017-03-28 12:00] VITALS: BP 103/68; PULSE 85; RESP 19; TEMP 97.4; O2SAT 94
[2017-03-28 12:00] LABS: FREE T4 1.24 NG/DL (0.76-1.46)
[2017-03-28] MEDS: ACETAMINOPHEN 325 MG TAB PO PRN (14:21)
[2017-03-28 17:36] LABS: HEMOGLOBIN A1C 5.5 % (4.3-6.0)
== END 2017-03-28 17:15 | disposition home or self-care (01) | DRG 292 ==
LOC: NEPE 22:40 → NEDA 03-26 01:40 → NEDH 03-26 07:20 → N04B 03-26 13:42
PROVIDERS: ADMIT Hospitalist; ATTEND Hospitalist
DX: I11.0 Hypertensive heart disease with heart failure (principal); I50.9 Heart failure, unspecified; I47.2 Ventricular tachycardia; I35.0 Nonrheumatic aortic (valve) stenosis; J45.909 Unspecified asthma, uncomplicated
CPT/HCPCS: 71010; 71275; 76604; 80048; 80053; 82550; 83036; 83605; 83615; 83735; 83880; 84439; 84443; 84484; 85025; 85379; 85610; 85730; 87040; 93005; 93306; 93970; 96374; J1650; J1940; Q9967

== ENCOUNTER 2017-05-01 07:36 | Day surgery (SDC) | payer OTHER ==
[~2017-05-01] VITALS: Ht 157.5 cm; Wt 102.1 kg
[~2017-05-01 07:36] MED LIST changes: -ALBU0.086 NEB; -ALBU8I INH; +CARV3.125 PO; -CETI10 PO; -FLUT1SPR9 EACH NARE; +FURO20TA PO; -HYDR50 PO; +IPRA17I INH; +KLOR10TA PO; -NAPR220T95 PO; -NEBUMIS6 INH; -TRUSMIS52
[2017-05-01] MEDS ORDERED: IOHEXOL 350 MG/ML 50 ML BTL (for Cath Lab) OTHER ONE (07:37)
[2017-05-01 08:00] VITALS: BP 129/93; PULSE 113; RESP 22; TEMP 97.4; O2SAT 96
[2017-05-01 08:26] LABS: AUTOMATED NEUTROPHIL # 3.9 TH/MM3 (1.8-7.7); BASOPHIL % 0.5 % (0.0-2.0); EOSINOPHIL # 0.3 TH/MM3 (0-0.4); EOSINOPHIL % 4.8 % (0.0-4.0); HEMATOCRIT 40.7 % (35.0-46.0); LYMPH % 33.3 % (9.0-44.0); LYMPHOCYTE # 2.3 TH/MM3 (1.0-4.8); MEAN CORPUSCULAR HEMOGLOBIN 28.5 PG (27.0-34.0); MEAN CORPUSCULAR HGB CONC 34.3 % (32.0-36.0); MEAN PLATELET VOLUME 9.1 FL (7.0-11.0); MONO % 6.3 % (0.0-8.0); MONOCYTE # 0.4 TH/MM3 (0-0.9); NEUT % 55.1 % (16.0-70.0); PLATELET COUNT 253 TH/MM3 (150-450); RED BLOOD COUNT 4.91 MIL/MM3 (4.00-5.30); RED CELL DISTRIBUTION WIDTH 14.8 % (11.6-17.2)
[2017-05-01 08:35] LABS: PROTHROMBIN TIME - PATIENT 10.5 SEC (9.8-11.6)
[2017-05-01 08:44] LABS: BICARBONATE 28.3 MEQ/L (21.0-32.0); CALCIUM 8.7 MG/DL (8.5-10.1); CREATININE 0.86 MG/DL (0.50-1.00)
[2017-05-01] MEDS ORDERED: NITROGLYCERIN INJ 5 ML ONE (10:32)
[2017-05-01] MEDS ORDERED: HEPARIN SODIUM - IV 10,000 UNITS/10 ML VIAL ONE (10:32)
[2017-05-01] MEDS ORDERED: MIDAZOLAM HCL 2 MG/2 ML VIAL ONE (10:32)
[2017-05-01] MEDS ORDERED: HEPARIN-NS/PF INJ 1,000 ML ONE (10:32)
[2017-05-01] MEDS ORDERED: VERAPAMIL HCL 5 MG/2 ML VIAL ONE (10:32)
--- NOTE | 2017-05-01 11:46 | CATHPROC ---
[facility] HIS Report Study Information Study Number Admission Scheduled Start Study Start [id number] May 01 2017 7:36AM 05/01/2017 May 01 2017 10:23AM [place] Service Cardiac Catheterization Admit Source Facility Department Other [facility] - [facility] Physician and Clinical Staff Initial Nimesh Cornell Correctional Counselor/Case Manager Jefferson RN, Onesimo Other cathlab, cathlab Recorder Chinmay Balderrama RCIS(BS) Scrub Tavo, Mary,COSTUME MISTRESS TECH2 Procedures Performed Procedure Location (Site) Vessel Name Coronary Angiograms LCA Left Coronary Coronary Angiograms RCA Right Coronary L Heart Cath Equipment Time Correctional Supervisor Description Size Mfg Part Number Used/Scraped CATHETER, FR5 SWAN ANNE-MARIE 10:25 YANG BERNARD FR 5 [id number] *[id number] Used MONITOR TRANSDUCER, TRUWAVE [id number] 10:24 YANG BERNARD * Used W/STOCKCOCK *[id number] TRANSDUCER, TRUWAVE [id number] 10:24 YANG BERNARD * Used W/STOCKCOCK *[id number] INTRODUCER SET, [id number] 10:59 [employer]OOK [employer]. FR 5 Used MICROPUNCTURE *[id number] *[id number] 10:24 Pilot Systems PACK, CCL CUSTOM * Used *[id number] 10:47 MEDTRONIC JR 4.0 DXTERITY CATHETER FR 5 Used *[id number] 11:02 fabrik MEDICAL SHEATH, FR5.5 PRELUDE 11CM FR 5 [id number] Used [id number] 10:24 fabrik MEDICAL WIRE, 3MMJ .035 180CM 180CM Used *[id number] 10:24 NAMIC MANIFOLD, 2 PORT * Used *[id number] 10:24 NAMIC MANIFOLD, 4 PORT * Used *[id number] 10:24 NYCOMED OMNIPAQUE, 350 MG, 150ML 150ML [id number] Used [id number] 10:24 GUILLEN MEDICAL BLANKET,WARM AIR CCL * Used *[id number] 11:01 TERUMO MEDICAL SHEATH, FR6 TERUMO (10CM) FR 6 Used *[id number] SHEATH, FR6 TRANSRADIAL [id number] 10:24 TERUMO MEDICAL FR 6 Used SLENDER 10CM *[id number] SHEATH, FR6 TRANSRADIAL RM*[id number] 10:24 TERUMO MEDICAL FR 6 Used SLENDER 10CM *[id number] 11:00 TERUMO MEDICAL SHEATH, FR7 TERUMO (10CM) FR 7 Used *[id number] 11:21 V[employer]ULAR [employer]IONS PIGTAIL DUAL LUMEN CATHETER FR 6 5540 *[id number] Used Equipment Model, Serial, Lot Number and Expiration Data Description Model Number Serial Number Lot Number Expiration Date JR 4.0 DXTERITY CATHETER [id number] 01-30-2020 History: Current Medications Medication Dosage/Unit Route Frequency Last Date/Time Taken Beta Diana PLAVIX History: Allergies Allergy Reaction doxycycline BLURRED VISION minocycline BLURRED VISION tigecycline BLURRED VISION History: Risk Factors Family History of Hypertension Dyslipidemia Previous MO Previous Heart Failure Premature CAD No Yes Yes No Yes Prior Valve Prior PCI Prior CABG Surgery No No No Cerebrovascular Peripheral Artery Chronic Lung On Dialysis Diabetes Disease Disease Disease No No No Yes No History: Symptoms/Diagnosis Selection Items SOB History: Stress Tests Stress or Imaging Studies Performed No History: Other Current Smoker No Labs Hgb (g/dl) Hct (%) WBC (l/cumm) Platelets (thousands) 11.60-17.00 35.00-51.00 4.00-11.00 150.00-450.00 14.0 40.7 7 253 Glucose (mg/dl) BUN (mg/dl) Creatinine (mg/dl) BUN:Creatinine (1:x) 74.00-106.00 7.00-18.00 0.50-1.30 10.00-20.00 114 19 0.8 23.8 Na (meq/l) K (meq/l) 136.00-145.00 3.50-5.10 140 3.7 INR (PTT:PT) 0.90-1.10 1 CPK-MB (ng/ML) 0.50-3.60 Not Drawn Medication Medication Total Dose (Bolus/Oral) Medication Total Dosage/Unit 1% XYLOCAINE 23 mL FENTANYL 50 mcg VERSED 0.5 mg Medications (Bolus/Oral) Medication Time Given Dosage/Unit Administered By Reason FENTANYL 05/01/2017 10:54:23 AM 50 mcg Onesimo Paulino RN 50 mcg FENTANYL given in lab by Onesimo Paulino RN in Left Antecubital via Peripheral IV. Ordered by Pet Nimesh esquivel 1% XYLOCAINE 05/01/2017 10:56:23 AM 3 mL Nimesh Cedeno 3 mL 1% XYLOCAINE given in lab by Nimesh Cedeno in Right Radial via Subcutaneous. 1% XYLOCAINE 05/01/2017 11:01:05 AM 20 mL Nimesh Cedeno 20 mL 1% XYLOCAINE given in lab by Nimesh Cedeno in Right Groin via Subcutaneous. VERSED 05/01/2017 11:15:11 AM 0.5 mg Onesimo Paulino RN 0.5 mg VERSED given in lab by Onesimo Paulino RN in Left Antecubital via Peripheral IV. Ordered by Nimesh Khan Medication (Drip) Medication Time Given Dosage/Unit Concentration/Unit Diluent (ml) Solutio n IV Solutions 05/01/2017 10:23:13 AM 0 mL (IV) 500 NaCl .9 Patient arrived on IV Solutions given by ricky garcía in Left Antecubital via Peripheral IV. Pump /Drip Flow = 20 ml/hr using NaCl .9. Ordered by Nimesh Cedeno Initial Case Assessment Cardiovascular HR Rhythm NIBP Chest Pain 110 stachy 126/90 0 Edema Present Skin color Skin None Normal Warm Dry Circulatory - Right Pulses Dorsalis Pedis Femoral Radial 2 2 2 Scale (0,1,2,3,4,d) Circulatory - Left Pulses Dorsalis Pedis Femoral Radial 2 2 Scale (0,1,2,3,4,d) Neurological State Oriented to time-place- Alert Moves all extremities person Respiration - General Respiration Rate SpO2 (%) (B/min) 15 96 Final Case Assessment Cardiovascular HR Rhythm NIBP Chest Pain 106 stachy 114/81 0 Edema Present Skin color Skin None Normal Warm Dry Circulatory - Right Pulses Dorsalis Pedis Femoral Radial 2 2 2 Scale (0,1,2,3,4,d) Circulatory - Left Pulses Dorsalis Pedis Femoral Radial 2 2 Scale (0,1,2,3,4,d) Neurological State Oriented to time-place- Alert Moves all extremities person Respiration - General Respiration Rate SpO2 (%) (B/min) 15 96 Chronological Log Time Study Chronological Log 10:23:02 Patient arrived via Bed. 10:23:03 Patient Name, D.O.B, / Armband Verified By R.N. 10:23:04 Consent signed by the physician and the patient and verified by the [facility] staff. 10:23:04 Pre-op and post- op instructions given; patient acknowledges understanding of instructions. 10:23:05 Verbal Stimulation=2 Physical Stimulation=2 Airway=2 Respiration=2 TOTAL=8. (0=absent, 1=li mited, 2=present) 10:23:06 Presedation assessment performed by [facility] RN. 10:23:06 Immediate Presedation assesment performed by physician. 10:23:07 Allens test performed on the right radial and ulnar artery. POSITIVE. 10:23:08 Patient has been NPO for More than 6Hrs. 10:23:09 Skin Breakdown- none per patient 10:23:10 Patient Warmer Placed on the Table. 10:23:11 Brandie Prominences Protected 10:23:13 A # 20 IV was noted in the Antecubital (left). Grade = 0 Patient arrived on IV Solutions given by cathlab, cathlab in Left Antecubital via Peripheral IV . Pump/Drip Flow = 20 10:23:13 ml/hr using NaCl .9. Ordered by Nimesh Cedeno 10:23:14 History and physical on the chart or being dictated. Vitals capture started with the following parameters, Patient=Adult, Interval=5 min, Initial Pr zvfidt=383 mmHg, 10:31:07 Deflation Rate=5 mmHg, Cuff placed on Left Arm 10:31:09 Reference ECG taken Assessment: Initial Case, RI=154 BPM, Rhythm=stachy, AOIC=985/90 mmhg, Chest Pain=0, Edema=None , Color=Normal, Skin = Warm, Dry Right Pulses: James Ped=2, Femoral=2, Radial=2 10:31:10 Left Pulses: James Ped=2, Femoral=2 Neurological: State=Alert, Ox3, RAMIREZ Respiration: Resp=15 B/min, SpO2=96 % 10:31:41 IX=005 bpm, WTVN=852/90 mmhg, SpO2=97 %, Resp=16 B/min, Pain=0, Jacey=10, Ghosh=2 10:36:40 RA=912 bpm, XBBD=745/83 mmhg, SpO2=95 %, Resp=20 B/min, Pain=0, Jacey=10, Ghosh=2 10:38:23 Right radial, right brachial, and groin(s) prepped with 2% chlorhexidine, and draped after a 3 min. waiting time. 10:41:37 TW=712 bpm, LHBR=363/92 mmhg, SpO2=96 %, Resp=19 B/min, Pain=0, Jacey=10, Ghosh=2 10:44:59 Pressure channel 1 zeroed. 10:45:00 Pressure channel 2 zeroed. 10:46:02 MD paged 10:46:38 SZ=080 bpm, CSVW=529/84 mmhg, SpO2=95.0 %, Resp=8 B/min, Pain=0, Jacey=10, Ghosh=2 10:50:23 MD arrived. 10:50:26 Contrast Scanned 10:50:26 Immediate Presedation assesment performed by physician. 10:51:37 SS=717 bpm, UOFR=394/79 mmhg, SpO2=93 %, Resp=18 B/min, Pain=0, Jacey=10, Ghosh=2 Time Out. Correct patient, correct procedure, correct physician, power injector not loaded with contrast with surgical 10:54:03 team present. Time Out Concurred by MD and individual staff in procedure. 10:54:14 Case Start 10:54:15 Verbal Stimulation=2 Physical Stimulation=2 Airway=2 Respiration=2 TOTAL=8. (0=absent, 1=li mited, 2=present) 10:54:23 50 mcg FENTANYL given in lab by Onesimo Paulino RN in Left Antecubital via Peripheral IV. Orde red by Nimesh Cedeno. 10:56:23 3 mL 1% XYLOCAINE given in lab by Nimesh Cedeno in Right Radial via Subcutaneous. 10:56:38 IM=859 bpm, IWNS=421/88 mmhg, SpO2=95 %, Resp=10 B/min, Pain=0, Jacey=10, Ghosh=2 10:57:44 Access site was Right Radial Artery. 11:00:42 Unable to advance to wire. Going to attempt RFA 11:01:05 20 mL 1% XYLOCAINE given in lab by Nimesh Cedeno in Right Groin via Subcutaneous. 11:01:37 EG=462 bpm, VTIW=157/91 mmhg, SpO2=95 %, Resp=10 B/min, Pain=0, Jacey=10, Ghosh=2 11:02:57 Access site was Right Femoral Artery. 11:03:02 A INTRODUCER SET, MICROPUNCTURE FR 5 was advanced into the Fem Art (right) using the Percut aneous technique. A SHEATH, FR6 TERUMO (10CM) FR 6 was exchanged in the Fem Art (right). This was necessary in or elaina to 11:03:08 accomodate a larger catheter. 11:05:01 Access site was Right Femoral Vein. 11:05:04 A INTRODUCER SET, MICROPUNCTURE FR 5 was advanced into the Fem Vein (right) using the Percu taneous technique. A SHEATH, FR5.5 PRELUDE 11CM FR 5 was exchanged in the Fem Vein (right). This was necessary in order to 11:05:20 accomodate a larger catheter. 11:05:53 An injection in the Fem Art (right) was made through the SHEATH, FR6 TERUMO (10CM) FR 6. 11:06:38 LI=537 bpm, CKGQ=038/94 mmhg, SpO2=95 %, Resp=14 B/min, Pain=0, Jacey=10, Ghosh=2 11:07:31 A CATHETER, FR5 SWAN ANNE-MARIE MONITOR FR 5 was inserted via Fem Vein (right) Recorded Pressure: PCW, HR=92, Condition=Condition 1 11:10:49 (Pulmonary Capillary Wedge) PCW 35/32/28 11:11:39 BL=151 bpm, ORMU=845/89 mmhg, Resp=11 B/min, Pain=0, Jacey=10, Ghosh=2 Saturation: Site=MPA (Main Pulmonary Artery) , O2=71.8 %, Hgb=14 gm/dl, Condition=Condition 1. Used in 11:11:55 calculation. Recorded Pressure: MPA, ZJ=042, Condition=Condition 1 11:13:05 (Main Pulmonary Artery) MPA 38/26/32 11:13:30 Saturation: Site=Ao (Aorta) , O2=94.4 %, Hgb=14 gm/dl, Condition=Condition 1. Used in calcu lation. Recorded Pressure: RV, JR=253, Condition=Condition 1 11:13:55 (Right Ventricle) RV 38/9/10 Recorded Pressure: RA, CB=071, Condition=Condition 1 11:14:25 (Right Atrium) RA 03/16/10 11:14:43 [place] Anne-Marie Catheter Removed 11:15:11 0.5 mg VERSED given in lab by Onesimo Paulino RN in Left Antecubital via Peripheral IV. Gennye d by Nimesh Cedeno JR 4.0 DXTERITY CATHETER FR 5 was advanced over a wire. OMNIPAQUE, 350 MG, 150ML 150ML was us ed for ::28 injections. 11:16:40 DK=058 bpm, QUWO=638/86 mmhg, SpO2=91.0 %, Resp=13 B/min, Pain=0, Jacey=10, Ghosh=2 11:17:08 The RCA was injected and visualized at various angles. OMNIPAQUE, 350 MG, 150ML 150ML used . Recorded Pressure: Ao, NH=768, Condition=Condition 1 11:17:47 (Aorta) Ao 99/76/87 After removing the current catheter a PIGTAIL DUAL LUMEN CATHETER FR 6 was advanced over a WIRE , 3MMJ .035 11:20:29 180CM 180CM. 11:21:39 EH=983 bpm, VTSZ=722/89 mmhg, SpO2=90.0 %, Resp=17 B/min, Pain=0, Jacey=10, Ghosh=2 Recorded Pressure: LV, FS=188, Condition=Condition 1 11:24:22 (Left Ventricle) LV 135/13/17 Recorded Pressure: LV, Ao, HR=493, Condition=Condition 1 11:25:11 (Left Ventricle) LV 139/16/21, (Aorta) Ao 103/77/90 After removing the current catheter a JL 4.0 INFINITI CATHETER FR 6 was advanced over a WIRE, 3 MMJ .035 180CM 11:26:31 180CM. 11:26:40 LK=651 bpm, DFNG=917/81 mmhg, RaF0=757.0 %, Resp=18 B/min, Pain=0, Jacey=10, Ghosh=2 11:29:14 The LCA was injected and visualized at various angles. OMNIPAQUE, 350 MG, 150ML 150ML used . 11::26 Catheter was removed 11::28 Case End Assessment: Final Case, IG=077 BPM, Rhythm=stachy, GENZ=444/81 mmhg, Chest Pain=0, Edema=None, Color=Normal, Skin = Warm, Dry Right Pulses: James Ped=2, Femoral=2, Radial=2 11:31:05 Left Pulses: James Ped=2, Femoral=2 Neurological: State=Alert, Ox3, RAMIREZ Respiration: Resp=15 B/min, SpO2=96 % 11:31:26 Catheter(s) removed without difficulty 11:31:29 Sterile dressing applied to site 11:31:29 No case complications noted. 11:31:30 Cine recording checked. 11:31:34 Bedside Report will be given. 11:31:39 CC=835 bpm, UVDZ=550/85 mmhg, SpO2=90.0 %, Resp=16 B/min, Pain=0, Jacey=10, Ghosh=2 11:31:49 Contrast Scanned 11:31:52 Verbal Stimulation=2 Physical Stimulation=2 Airway=2 Respiration=2 TOTAL=8. (0=absent, 1=li mited, 2=present) 11:31:58 A Left Heart Cath was performed. 11:35:54 Vitals capture stopped. 11:35:55 Patient moved to [facility] End Study - Contrast Media Used In Study Contrast Total Opened (mL) Total Used (mL) Total Wasted (mL) Omnipaque 40 40 0 End Study - Maximum Contrast Load Max Contrast Load (mL) 638.1 End Study - Radiation Exposure Fluoro Time (minutes) 5.1 End Study - Patient Disposition Complications Transferred To Interventional Outcome No [facility] Holding No attempt made
[2017-05-01] MEDS ORDERED: SODIUM CHLOR 0.9% 250 ML INJ 250 ML IV PRN (12:00)
[2017-05-01] MEDS ORDERED: ONDANSETRON HCL 4 MG/2 ML VIAL IV PUSH PRN (12:00)
[2017-05-01] MEDS ORDERED: oxyCODONE/ACETAMINOPHEN 5 MG/325 MG TAB PO PRN ×2 (12:00)
[2017-05-01] MEDS ORDERED: MISC INFORMATION XX ONE (12:00)
[2017-05-01] MEDS ORDERED: ATROPINE SULFATE 1 MG/ML VIAL IV PUSH PRN (12:00)
--- NOTE | 2017-05-01 12:52 | PD.CAR.PN ---
CVT Progress Note Subjective/Hospital Course: Isolated Aortic Valve Replacement: Risk Model and Variables - STS Adult Cardiac Surgery Database Version 2.81 RISK SCORES About the STS Risk Calculator Procedure: AV Replacement Risk of Mortality: 1.573% Morbidity or Mortality: 14.374% Long Length of Stay: 5.822% Short Length of Stay: 38.074% Permanent Stroke: 0.647% Prolonged Ventilation: 9.226% DSW Infection: 0.257% Renal Failure: 2.491% Reoperation: 5.407% Objective: Vital Signs Date Time Temp Pulse Resp B/P (MAP) Pulse Ox O2 Delivery O2 Flow Rate FiO2 05/01/17 11:58 94 Room Air 05/01/17 08:00 97.4 113 22 129/93 (105) 96 Labs: Laboratory Tests Test 05/01/17 08:00 White Blood Count 7.0 TH/MM3 (4.0-11.0) Red Blood Count 4.91 MIL/MM3 (4.00-5.30) Hemoglobin 14.0 GM/DL (11.6-15.3) Hematocrit 40.7 % (35.0-46.0) Mean Corpuscular Volume 83.0 FL (80.0-100.0) Mean Corpuscular Hemoglobin 28.5 PG (27.0-34.0) Mean Corpuscular Hemoglobin Concent 34.3 % (32.0-36.0) Red Cell Distribution Width 14.8 % (11.6-17.2) Platelet Count 253 TH/MM3 (150-450) Mean Platelet Volume 9.1 FL (7.0-11.0) Neutrophils (%) (Auto) 55.1 % (16.0-70.0) Lymphocytes (%) (Auto) 33.3 % (9.0-44.0) Monocytes (%) (Auto) 6.3 % (0.0-8.0) Eosinophils (%) (Auto) 4.8 % (0.0-4.0) Basophils (%) (Auto) 0.5 % (0.0-2.0) Neutrophils # (Auto) 3.9 TH/MM3 (1.8-7.7) Lymphocytes # (Auto) 2.3 TH/MM3 (1.0-4.8) Monocytes # (Auto) 0.4 TH/MM3 (0-0.9) Eosinophils # (Auto) 0.3 TH/MM3 (0-0.4) Basophils # (Auto) 0.0 TH/MM3 (0-0.2) CBC Comment DIFF FINAL Differential Comment Prothrombin Time 10.5 SEC (9.8-11.6) Prothromb Time International Ratio 1.0 RATIO Activated Partial Thromboplast Time 25.8 SEC (24.3-30.1) Blood Urea Nitrogen 19 MG/DL (7-18) Creatinine 0.86 MG/DL (0.50-1.00) Random Glucose 114 MG/DL (74-106) Calcium Level 8.7 MG/DL (8.5-10.1) Sodium Level 140 MEQ/L (136-145) Potassium Level 3.7 MEQ/L (3.5-5.1) Chloride Level 106 MEQ/L (98-107) Carbon Dioxide Level 28.3 MEQ/L (21.0-32.0) Anion Gap 6 MEQ/L (5-15) Estimat Glomerular Filtration Rate 68 ML/MIN (>89) Result Diagram: 05/01/17 0800 05/01/17 0800 (1) Aortic stenosis Veronika Hernández MD May 01, 2017 12:52
[2017-05-01] MEDS ORDERED: PAPAVERINE INJ 60 MG, NITROGLYCERIN INJ 100 MCG, DILTIAZEM INJ 100 MG in SODIUM CHLORID... IRRIGATION SCH (14:45)
--- NOTE | 2017-05-01 15:52 | RADRPT ---
EXAM DATE/TIME: 05/01/2017 14:47 [place] COMPARISON: No previous studies available for comparison. INDICATIONS : Pre-op AVR. MEDICAL HISTORY : Atrial stenosis. Asthma. SOB. DJD. Anxiety. SURGICAL HISTORY : Tonsillectomy. section. Carpal tunnel release. Hernia repair. Aortic valva replacement. ENCOUNTER: Initial ACUITY: 1 day PAIN SCORE: 3/10 LOCATION: Bilateral neck PEAK SYSTOLIC VELOCITIES (cm/sec): ICA/CCA RATIO: Right: 1.6 Left: 1.1 ICA: Right: 87 Left: 86 CCA: Right: 54 Left: 80 ECA: Right: 43 Left: 49 VERTEBRAL: Right: 80 antegrade Left: 32 antegrade Elevated flow velocities and ICA/CCA ratios have been found to correlate with increased degrees of vessel stenosis, calculated as percentage of diameter relative to a normal segment of distal ICA/CCA FINDINGS: RIGHT CAROTID: No significant stenosis is visualized. The waveforms are within normal limits. LEFT CAROTID: No significant stenosis is visualized. The waveforms are within normal limits. VERTEBRAL ARTERIES: Antegrade flow is seen in both vertebral arteries. MISCELLANEOUS: None. CONCLUSION: 1. Patent carotid arteries bilaterally. 2. Antegrade flow involving both vertebral arteries. The right appears dominant. Nickolas Platt Jr., MD on May 01, 2017 at 15:47 Board Certified Radiologist. This report was verified electronically.
--- NOTE | 2017-05-01 17:51 | MB ---
cc: JARROD PEREZ DATE OF CONSULTATION 05/01/17 1960. HISTORY OF PRESENT ILLNESS A 56-year-old female, history of aortic valve stenosis that has been followed by Dr. Brown for about two years. She has been having increasing shortness of breath since . She was admitted back in March for congestive heart failure, bilateral pleural effusions. She had recently, prior to that, had this shortness of breath for about six weeks. She saw her primary care physician and she was treated with a Z-Samir, nebulizer, rescue inhaler and Medrol Dosepak. BNP was 361. She did have some bilateral pleural effusions. CT of the chest at that time showed no pulmonary emboli. They put her on IV Lasix which improved her symptoms. She was then discharged home. At that time, she had an echocardiogram in the facility which showed an ejection fraction of 50%, mild to moderate aortic valve stenosis, an aortic valve area of 0.8, trace aortic insufficiency, no tricuspid regurgitation. We were consulted after she underwent elective cardiac cath which showed very minimal 20% disease in the distal LAD, 10% in the circ, right-sided heart pressures include RA pressures of 10, RV pressure of 38/9, PA pressures of 38/26, a wedge pressure of 32. We were consulted to evaluate for aortic valve replacement. PAST MEDICAL HISTORY 1. Aortic stenosis with a worsening aortic valve area. 2. Asthma 3. Cardiomegaly 4. Recent CHF 5. Dyspnea 6. Left ventricular hypertrophy 7. Morbid obesity with a BMI of 41, 8. Recent bilateral pleural effusions PAST SURGICAL HISTORY 1. x3 2. Hernia repair. ALLERGIES TETRACYCLINE MEDICATIONS Home include 1. Ventolin inhaler. 2. Coreg 3.125 q12. 3. Lasix 20 daily. 4. Naprosyn 220 p.o. q. eight as needed. 5. Olopatadine eyedrops. 6. Potassium 10 mEq. FAMILY HISTORY Mother is still alive, history of some coronary artery disease. Father in the 1970s, unknown cause. SOCIAL HISTORY The patient , works in customer service at [employer]. she is very active, takes care of her grand kids, also has three children of her own. No tobacco. Rare alcohol. REVIEW OF SYSTEMS GENERAL: No night sweats, fever, heat and cold intolerance. SKIN: No psoriasis, itching or hives. HEENT: No blurred vision, hearing loss. RESPIRATORY: Positive for shortness of breath. No cough. CARDIOVASCULAR: No chest pain. No paroxysmal nocturnal dyspnea. She does have lower extremity edema. GASTROINTESTINAL: No diarrhea, vomiting. GENITOURINARY: No burning frequency, urgency SECRETARY BOOKKEEPER: No history of TIA, CVA, seizure disorder. ENDOCRINOLOGY: No history of diabetes and/or hypothyroidism. PHYSICAL EXAMINATION VITAL SIGNS: On exam blood pressure 110/60, heart rate of 85, temperature max 97.4. GENERAL: Patient is awake, alert in no acute distress. HEENT: Normocephalic, atraumatic. Pupils equal and reactive. Oral mucosa pink, moist. NECK: Supple. No JVD. CARDIOVASCULAR: Heart sounds S1-S2, regular rate and rhythm. Grade 3/6 systolic flow murmur. ABDOMEN: Obese, soft, nontender, no masses or organomegaly. EXTREMITIES: Reveal trace edema with good distal pulses. LABORATORY DATA Hemoglobin 13, hematocrit 39, white cell count nine, platelet count 255 Sodium 140, potassium 3.7, BUN of 19, creatinine 0.86, INR 1.0. IMAGING STUDIES Chest x-ray and carotid ultrasound pending. Also pending is a type and screen. IMPRESSION This is a very pleasant 56-year-old patient of Dr. Cedeno and Dr. Brown that underwent cardiac cath to evaluate also right-sided heart pressures. She has nonobstructive coronary disease with known aortic valve area 0.8 with recent admission for CHF. RECOMMENDATIONS At this time, for aortic valve replacement using a minimally invasive approach. The patient is requesting for mechanical valve at this time. We will schedule her for May 21. All procedures, alternatives and risks have been discussed with the patient. The STS data has been documented in the electronic record. Dictated by DELL Hernández Veronika WHARTON /2:41 PM /12:16 PM ARLINE
[2017-05-01 18:36] LABS: BILIRUBIN, URINE NEG (NEG); BLOOD, URINE TRACE (NEG); GLUCOSE,URINE NEG (NEG); KETONE, URINE NEG (NEG); NITRITE,URINE NEG (NEG); SQUAMOUS EPITHELIAL CELL URINE <1 /hpf (0-5); URINE COLOR YELLOW (YELLW/STRAW); URINE LEUKOCYTE ESTERASE NEG (NEG)
--- NOTE | 2017-05-01 19:02 | RADRPT ---
EXAM DATE/TIME: 05/01/2017 18:39 [facility] COMPARISON: No previous studies available for comparison. INDICATIONS : Post operative Aortic Valve Replacement. MEDICAL HISTORY : Atrial stenosis. Asthma. SOB. DJD. Anxiety SURGICAL HISTORY : Tonsillectomy. section. Carpal tunnel release. Hernia repair. Aortic valva replacement. ENCOUNTER: Subsequent ACUITY: 1 day PAIN SCORE: 3/10 LOCATION: Bilateral chest FINDINGS: Minimal left base atelectasis. Lungs are otherwise clear. No large effusion. No pneumothorax Heart size stable, normal. No pulmonary edema demonstrated. CONCLUSION: Trace left base atelectasis. Otherwise negative. Duran Michaels MD on May 01, 2017 at 18:58 Board Certified Radiologist. This report was verified electronically.
--- NOTE | 2017-05-01 23:02 | EKG ---
Date Performed: 05/01/2017 Time Performed: 08:09:18 PTAGE: 56 years EKG: Sinus tachycardia. Poor R wave progression - probable normal variant Borderline ECG PREVIOUS TRACING : 03/25/2017 22.48 Since the prior tracing, there has been no significant espinal DOCTOR: Nimesh Cedeno Interpretating Date/Time 05/01/2017 23:02:04
--- NOTE | 2017-05-02 10:17 | MA ---
cc: GIDEON CARLIN DO DATE 05/01/2017 PROCEDURE Left heart catheterization, right heart catheterization, aortic stenosis evaluation, moderate sedation 15 minutes. PREPROCEDURAL DIAGNOSIS Shortness of breath, possible left lower lobe gradient aortic stenosis by echocardiogram. POSTPROCEDURE DIAGNOSIS Symptomatic severe low-flow low grade an aortic stenosis. MEDICATIONS Fentanyl 50 mcg, Versed 0.5 mg CONTRAST 40 cc FLUOROSCOPY 5.1 minutes ANESTHESIA Moderate sedation 15 minutes ESTIMATED BLOOD LOSS 10 cc PROCEDURAL SUMMARY Tram Noyola is a pleasant 56-year-old female who sees my partner Dr. Brown in the office and was noted to have an admission for heart failure as well as increasing shortness of breath. During this on echocardiogram, she was found to have possible severe low-flow/low gradient aortic stenosis and she was recommended further evaluation by cardiac catheterization. The risks, benefits and alternatives were explained to her and she consented as such. She was brought to lab and prepped in the usual sterile fashion. Right femoral artery was accessed using a modified Seldinger technique and placement of a 6-Colombian sheath. Right femoral vein was accessed using a modified Seldinger technique and placement of a 5-Colombian sheath. Both leads were easily aspirated and flushed. A Gladstone-Dory catheter was advanced up the femoral vein to a wedge position and pressures, as well as oxygen saturations were done in a standard fashion on pullback throughout the heart. Gladstone-Dory catheter was removed. A JR-4 was advanced over a J-wire to the ascending aorta and used for selective angiography of the right coronary artery system. This was exchanged out for a JL-4 which subsequently crossed into the left ventricle and so this was exchanged out for a Grafton catheter. Simultaneous pressures of the aorta, as well as the left ventricle were done. This was then pulled back into the aortic root and exchanged for a JL-4 which was used for selective angiography of the left coronary artery system. This was removed over a J-wire. Sheaths were sutured in place with a plan to remove once in the holding unit. 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 FINDINGS Left main normal sized vessel with adequate reflux and no significant disease. It bifurcates into an LAD and circumflex. LAD, a normal sized vessel with no significant disease in the proximal portion. This gives off one large diagonal which actually extends toward the apex and partially takes over for an overall small LAD distally. The left circumflex is a small to moderate size vessel with no significant disease. It gives off two obtuse marginals with are overall small with no significant disease. RCA is a normal-size vessel with mild tortuosity throughout. Overall, this is a dominant vessel with no significant disease. HEMODYNAMICS RA 10. RV 38. RVEDP 10. PA 38/26, mean PA 32. Wedge 32. LV 139/16, LVEDP 21. Aortic 100/77. Aortic valve area 0.83. Aortic valve mean gradient 30. IMPRESSIONS 1. Shortness of breath most likely due to severe aortic stenosis. 2. No significant coronary artery disease by cardiac catheterization. 3. Symptomatic severe low-flow low grade and aortic stenosis (ADA 0.83, mean gradient 30) 4. Mild pulmonary hypertension type 2 due to elevated left ventricular filling pressures. RECOMMENDATIONS 1. Ms. Noyola appears to have symptoms correlating with severe aortic stenosis. 2. She underwent cardiac catheterization showing severe aortic stenosis with an aortic valve area of 0.83. 3. She will be seen by Dr. Hernández from CT surgery for consideration of AVR. 4. She will be discharged home with a plan for elective AVR. If she has further symptoms, I have asked that she come back to the emergency room and we can be reevaluate the plan on when her AVR will be done. Thank you for allowing me to see Tram Noyola. If there are any questions, please do not hesitate to call. Gideon Carlin DO VGP/DJL /9:46 PM /9:49 AM
== END 2017-05-01 19:48 | disposition home or self-care (01) ==
LOC: HDIC 07:36 → HDOC 07:36
PROVIDERS: ATTEND Nuclear Medicine Nuclear Cardiology
DX: I25.10 Atherosclerotic heart disease of native coronary artery without angina pectoris (principal); I35.0 Nonrheumatic aortic (valve) stenosis; I50.9 Heart failure, unspecified; I51.7 Cardiomegaly; J45.909 Unspecified asthma, uncomplicated; F41.9 Anxiety disorder, unspecified; E66.01 Morbid (severe) obesity due to excess calories; Z68.41 Body mass index [BMI] 40.0-44.9, adult; Z95.2 Presence of prosthetic heart valve; Z01.818 Encounter for other preprocedural examination
CPT/HCPCS: 71045; 80048; 81001; 82810; 85025; 85610; 85730; 86850; 86900; 86901; 87641; 93005; 93460; 93880; 94010; 99152; C1893; J1644; J2250; J3010; Q9967

== ENCOUNTER 2017-05-21 05:27 | Inpatient (IN) | payer OTHER ==
[~2017-05-21] VITALS: Ht 157.5 cm; Wt 102.5 kg
[2017-05-21] VITALS (8 sets, daily range): BP systolic 91–104; BP diastolic 56–67; PULSE 70–89; RESP 12–16; TEMP 97–97.7; O2SAT 92–98
[2017-05-21] MEDS ORDERED: SODIUM CHLORIDE 0.9% FLUSH 10 ML FLUSH IV FLUSH PRN ×2 (06:15→13:30)
[2017-05-21] MEDS ORDERED: METOPROLOL TARTRATE 25 MG TAB PO SCH (06:30)
[2017-05-21] MEDS ORDERED: CHLORHEXIDINE GLUCONATE 2 % 1 PACK (2 CLOTHS) TOPICAL PRN (06:30)
[2017-05-21] MEDS ORDERED: LACTATED RINGER'S 1000 ML IV PRN (06:30)
[2017-05-21] MEDS ORDERED: CHLORHEXIDINE GLUCONATE 4% SOLN 120 ML BTL TOPICAL SCH (06:30)
[2017-05-21] MEDS ORDERED: INSULIN REGULAR 100 UNITS in NS 100 ML IV PRN (06:30)
[2017-05-21] MEDS ORDERED: POVIDONE IODINE 5% (ANTISEPSIS KIT) 4 APPLICATIONS EACH NARE PRN (06:30)
[2017-05-21] MEDS ORDERED: ceFAZolin 2 GM PREMIX 50 ML IV SCH (06:30)
[2017-05-21] MEDS ORDERED: DEXTROSE 50% IN WATER 50 ML VIAL(D50) IV PUSH PRN ×2 (06:30→13:30)
[2017-05-21] MEDS ORDERED: CEFAZOLIN 500 MG in NS IRR BTL 500 ML IRRIGATION SCH (06:30)
[2017-05-21] MEDS ORDERED: NITROGLYCERIN INJ 5 ML ONE (06:43)
[2017-05-21] MEDS ORDERED: ceFAZolin INJ 1,000 MG VIAL ONE (06:44)
[2017-05-21] MEDS ORDERED: VANCOMYCIN HCL 1000 MG VIAL ONE (06:45)
[2017-05-21] MEDS ORDERED: ceFAZolin 2 GM PREMIX 50 ML ONE (06:45)
[2017-05-21] MEDS ORDERED: HEPARIN SODIUM - SQ 10,000 UNITS/ML VIAL ONE (06:45)
[2017-05-21] MEDS ORDERED: BUPIVACAINE LIPOSO PF 1.3% INJ 20 ML, DEXAMETHASONE INJ 4 MG, MORPHINE INJ 8 MG in SODI... IRRIGATION ONE (07:30)
[2017-05-21] MEDS ORDERED: NS 20 ML/EXPAREL 20 ML/DEXAMETHASONE 4 MG/MORPHINE 10 MG IRRIGATION ONE ×4 (07:30)
[2017-05-21] MEDS ORDERED: CUSTODIOL HTK IRR SOLN 3,000 ML ONE (07:43)
[2017-05-21] MEDS ORDERED: ALBUMIN 25% INJ 50 ML IV ONE (07:43)
[2017-05-21] MEDS ORDERED: POTASSIUM CHLORIDE 20 MEQ/10 ML VIAL ONE (07:43)
[2017-05-21] MEDS ORDERED: MANNITOL INJ 100 ML ONE (07:44)
[2017-05-21] MEDS ORDERED: SODIUM BICARBONATE 8.4% INJ 50 MEQ/50 ML SYR ONE (07:44)
[2017-05-21] MEDS ORDERED: HEPARIN SODIUM - IV 10,000 UNITS/10 ML VIAL ONE (07:45)
[2017-05-21] MEDS ORDERED: SODIUM CHLORIDE 0.9% INJ 50 ML ONE (10:15)
[2017-05-21] MEDS ORDERED: AMINOCAPROIC ACID INJ 250 MG/ML 20 ML VIAL IV ONE (12:00)
[2017-05-21] MEDS ORDERED: LACTATED RINGER'S 1000 ML INJ 1,000 ML IV ONE (12:00)
[2017-05-21] MEDS ORDERED: SODIUM CHLOR 0.9% 250 ML INJ 750 ML IV ONE (12:00)
[2017-05-21] MEDS ORDERED: DEXMEDETOMIDINE HCL 200 MCG/2 ML VIAL IV ONE (12:00)
[2017-05-21] MEDS ORDERED: PHENYLEPH/NS 1000 MCG/10 ML SYR IV ONE ×2 (12:00)
[2017-05-21] MEDS ORDERED: NORMOSOL R INJ 1,000 ML IV ONE (12:00)
[2017-05-21] MEDS ORDERED: HEPARIN SODIUM - SQ 10,000 UNITS/ML VIAL SQ ONE (12:00)
[2017-05-21] MEDS ORDERED: MAGNESIUM SULFATE 1 GM/2 ML VIAL IV ONE (12:00)
[2017-05-21] MEDS ORDERED: VECURONIUM BROMIDE 20 MG VIAL IV ONE (12:00)
[2017-05-21] MEDS ORDERED: PROPOFOL 200 MG/20 ML AMP IV ONE (12:00)
[2017-05-21] MEDS ORDERED: SODIUM BICARBONATE 8.4% INJ 50 MEQ/50 ML SYR IV ONE (12:00)
[2017-05-21] MEDS ORDERED: ePHEDrine/NS 25 MG/5 ML SYRINGE IV ONE ×2 (12:00)
[2017-05-21] MEDS ORDERED: PHENYLEPHRINE HCL 10 MG/ML VIAL IV ONE ×2 (12:00)
[2017-05-21] MEDS ORDERED: PROTAMINE SULFATE 250 MG/25 ML VIAL IV ONE (12:00)
[2017-05-21] MEDS ORDERED: CALCIUM CHLORIDE 10% SOLN 1 GRAM/10 ML SYR IV ONE (12:00)
[2017-05-21] MEDS ORDERED: LIDOCAINE HCL 1% PF 5 ML SYRINGE OTHER ONE (12:00)
[2017-05-21] MEDS ORDERED: LACTATED RINGER'S 1000 ML INJ 500 ML IV PRN (13:27)
[2017-05-21] MEDS ORDERED: DOBUTamine PREMIX DRIP 250 ML IV PRN (13:27)
[2017-05-21] MEDS ORDERED: Post-op Orders (for Pharmacy) OTHER ONE (13:30)
[2017-05-21] MEDS ORDERED: CALCIUM CHLORIDE INJ 1 GM in SODIUM CHLORIDE 0.9% INJ 100 ML IV PRN (13:30)
[2017-05-21] MEDS ORDERED: METOPROLOL TARTRATE 5 MG/5 ML VIAL IV PUSH PRN (13:30)
[2017-05-21] MEDS ORDERED: POTASSIUM CHLOR 20 MEQ PREMIX 100 ML IV PRN ×3 (13:30)
[2017-05-21] MEDS ORDERED: INSULIN REGULAR (IV INFUSION) 100 UNITS in SODIUM CHLORIDE 0.9% INJ 99 ML IV PRN (13:30)
[2017-05-21] MEDS ORDERED: MAGNESIUM SULFATE INJ 2 GM in SODIUM CHLORIDE 0.9% INJ 100 ML IV PRN ×4 (13:30)
[2017-05-21] MEDS ORDERED: DEXMEDETOMIDINE INJ 200 MCG in SODIUM CHLORIDE 0.9% INJ 50 ML IV PRN (13:30)
[2017-05-21] MEDS ORDERED: RESP: RACEPINEPHRINE 2.25% 0.5 ML NEB NEB PRN (13:30)
[2017-05-21] MEDS ORDERED: POTASSIUM CHLORIDE 20 MEQ CONTROLLED RELEASE TAB PO PRN ×2 (13:30)
[2017-05-21] MEDS ORDERED: SODIUM BICARBONATE 8.4% SOLN 50 MEQ/50 ML VIAL IV PUSH PRN ×2 (13:30)
[2017-05-21] MEDS ORDERED: DOPamine INJ PREMIX 500 ML IV PRN (13:30)
[2017-05-21] MEDS ORDERED: ACETAMINOPHEN 650 MG SUPP RECTAL PRN (13:30)
[2017-05-21] MEDS ORDERED: CLEVIDIPINE INJ 50 ML IV PRN (13:30)
[2017-05-21] MEDS ORDERED: KETOROLAC TROMETHAMINE 30 MG/ML (IVP) VIAL IV PUSH PRN (13:30)
[2017-05-21] MEDS ORDERED: ALBUMIN 5% INJ 250 ML IV PRN (13:30)
[2017-05-21] MEDS ORDERED: PHENYLEPHRINE INJ 40 MG in DEXTROSE 5% IN WATE 500 ML INJ 496 ML IV PRN ×2 (13:30)
[2017-05-21] MEDS ORDERED: ACETAMINOPHEN 325 MG TAB PO PRN (13:30)
[2017-05-21] MEDS ORDERED: RESP: ALBUTEROL 2.5 MG/IPRATROPIUM 0.5 MG NEB (PRN) NEB (13:30)
[2017-05-21] MEDS ORDERED: MORPHINE SULFATE 2 MG/ML INJ IV PUSH PRN (13:30)
[2017-05-21] MEDS ORDERED: CALCIUM CHLORIDE 10% 1 GRAM/10 ML VIAL IV PUSH PRN (13:30)
[2017-05-21] MEDS ORDERED: MEPERIDINE HCL 25 MG/ML VIAL IV PUSH PRN (13:30)
[2017-05-21] MEDS ORDERED: NITROGLYCERIN-D5W 50 MG/250 ML 250 ML IV PRN (13:30)
[2017-05-21] MEDS ORDERED: hydrALAZINE HCL 20 MG/ML VIAL IV PUSH PRN (13:30)
[2017-05-21] MEDS ORDERED: MIDAZOLAM HCL 2 MG/2 ML VIAL ONE (14:18)
[2017-05-21] MEDS ORDERED: fentaNYL CITRATE 1000 MCG/20 ML VIAL ONE (14:18)
[2017-05-21] MEDS: ACETAMINOPHEN 1000 MG/100 ML 100 ML IV SCH ×2 (14:18→20:56)
--- NOTE | 2017-05-21 15:29 | RADRPT ---
EXAM DATE/TIME: 05/21/2017 14:54 [facility] COMPARISON: CHEST SINGLE AP, May 01, 2017, 18:39. INDICATIONS : Post open heart surgery. MEDICAL HISTORY : Atrial stenosis. Asthma. SURGICAL HISTORY : Tonsillectomy. section. Carpal tunnel release. Hernia repair. Aortic valva replacement. ENCOUNTER: Initial ACUITY: 1 day PAIN SCORE: Non-responsive. LOCATION: Bilateral chest FINDINGS: A single view of the chest demonstrates interval postsurgical changes with intact median sternotomy w ires and a valvular prostheses. Mediastinal drains, endotracheal tube, nasogastric tube and right IJ central venous catheter all appear to be appropriately positioned. Heart size is borderline. Increased interstitial markings characteristic of vascular congestion or vo lume overload. Left basilar consolidation/effusion. CONCLUSION: 1. Post surgical changes with findings of valvular replacement. 2. Life-support tubes including the right IJ central venous catheter, endotracheal and nasogastric tu bes as well as mediastinal drains all appear to be appropriately positioned. 3. Plain film findings of volume overload/failure with left basilar consolidation/effusion Nagi Ortega MD on May 21, 2017 at 15:22 Board Certified Radiologist. This report was verified electronically.
--- NOTE | 2017-05-21 15:40 | PD.OP ---
cc: El Brown MD; Veronika Hernández MD; Nimesh Cedeno DO Operative Report Date of Surgery: May 21, 2017 Preoperative Diagnosis: Postoperative Diagnosis: Procedure: 1. Aortic Valve Replacement with a 19 mm On-X Mechanical Aortic Valve 2. Mitral Valve Repair with a 28 mm Profile 3D Annuloplasty Ring. Surgeon: Veronika Hernández Hospital Plan Administrator(s): Dc Torrez Operation and Findings: PREOPERATIVE DIAGNOSES 1. Severe Aortic Stenosis. 2. Moderate Aortic Insufficiency 3. Severe Mitral Insufficiency POSTOPERATIVE DIAGNOSES Same SURGICAL PROCEDURE 1. Aortic Valve Replacement with a 19 mm On-X Mechanical Aortic Valve 2. Mitral Valve Repair with a 28 mm Profile 3D Annuloplasty Ring. TECHNOLOGY ASSISTANT HUMBLE Alex ANESTHESIA General endotracheal. RN CARE TRANSITION Anuj Justin CRNA, Merced Bassett MD PREPARATION ChloraPrep. NEEDLE, SPONGE AND INSTRUMENT COUNT Correct. DRAINS Two 32-Bengali mediastinal tubes. COMPLICATIONS None. INDICATIONS The patient is an 56-year-old female with severe aortic stenosis, presenting for surgical correction of the above pathology. DESCRIPTION OF PROCEDURE The patient was brought to the operating room and placed supine on the OR table. Following the induction of adequate general endotracheal anesthesia and placement of appropriate monitoring devices, the patient was then prepped and draped in the standard sterile fashion. Intraoperative AHMET revealed severe with a small annulus. Additionally, it was noted that the patient had severe MR as well. Therefore, plans were made to proceed with AVR and MVR. Median sternotomy was performed, the pericardium was divided in the midline and the cradle created. The patient was systemically heparinized and anticoagulation monitored by serial ACT measurements. Then 2 pursestring sutures of 2-0 Ethibond were placed on the aorta proximal to the takeoff of the innominate artery, a purse-string of 4-0 Prolene was placed on the superior vena cava and a final 2-0 Ethibond was placed on the right atrium for the inferior vena cava. At this point, aortic and bicaval venous cannulae were introduced and attached to the arterial and venous components of the bypass circuit respectively. Antegrade cardioplegia cannula was also placed. The patient was placed on cardiopulmonary bypass and core cooling initiated to a temperature of 32 degrees centigrade. The crossclamp was applied and 1 L of cardioplegia solution ([facility]itentiary HTK) given in an antegrade fashion in addition to topical cooling with slushed saline. Upon achieving adequate diastolic arrest of the heart a transverse aortotomy was performed. Additional cardioplegia was then given directly into the coronary ostia - 700 mls in the LM and 400 mls in the RCA. The aortic valve was then excised and sent for microbiologic analysis. The valve was very heavily calcified with the calcific process extending onto the anterior leaflet of the Mitral valve. Complete circumferential decalcification was performed and care was taken to aspirated and remove all particulate matter. Attention was then diverted to the mitral valve. A right atriotomy was performed. Transeptal approach to the mitral valve was taken. The mitral valve was inspected and appeared to be regurgitant with intact chords. The valve was repaired with an annuloplasty ring. Horizontal mattress sutures of interrupted 2 -0 Ethibond were placed on the mitral annulus. After adequate sizing, a 28 mm Profile 3D Medtronic Mitral ring was brought in the surgical field and the sutures passed through it and the valve was situated and anchored with the Cor- Knot device. This resulted in a competent valve. The septum was then closed in 2 layers. This was with 4-0 Prolene; the 1st layer being horizontal mattress, the 2nd layer being running baseball stitch. The right atrium was similarly closed in two layers of 4-0 Prolene. The aortic valve was addressed next. Horizontal mattress sutures of interrupted 2-0 Ethibond were placed on the aortic annulus with pledgets on the ventricular side. After adequate sizing, a 19 mm On-X valve was brought in the surgical field and the sutures passed through the skirt and the valve was situated using Cor-knots. This appeared to be a good fit. Gradual rewarming was initiated and the aortotomy closed in 2 layers. This was with 4-0 Prolene; the 1st layer being horizontal mattress, the 2nd layer being running baseball stitch. The cross clamp was removed and upon achieving normothermic cardiac activity, transesophageal echocardiography revealed a well-situated aortic prosthesis with no evidence of perivalvular leak and no aortic stenosis or aortic regurgitation as well as a competent mitral valve with no stenosis and trace insufficiency. Protamine was administered. Decannulation was performed and all sites were inspected for hemostasis. At this point the closure was undertaken. The pericardium was reapproximated in the midline. 2 chest tubes placed, and the sternum was reapproximated using stainless steel sternal wires. The musculo- fascial layer was then closed in 3 layers. The patient tolerated the procedure well and was transferred to open heart recovery in stable condition. Veronika Hernández MD May 21, 2017 15:40
[2017-05-21] MEDS: RESP: ALBUTEROL 2.5 MG/IPRATROPIUM 0.5 MG NEB (SCH) NEB ×2 (16:53→20:59)
[2017-05-21] MEDS: ONDANSETRON HCL 4 MG/2 ML VIAL IV PUSH PRN (19:39)
[2017-05-21] MEDS: AMIODARONE 200 MG TAB PO SCH (20:55)
[2017-05-21] MEDS: ceFAZolin 2 GM PREMIX 50 ML IV SCH (20:55)
[2017-05-21] MEDS: SODIUM CHLORIDE 0.9% FLUSH 10 ML FLUSH IV FLUSH SCH (21:00)
[2017-05-22] VITALS (9 sets, daily range): BP systolic 11–143; BP diastolic 57–95; PULSE 87–96; RESP 14–20; TEMP 97.6–98.7; O2SAT 96–99
[2017-05-22] MEDS: ACETAMINOPHEN 1000 MG/100 ML 100 ML IV SCH ×2 (02:17→08:37)
[2017-05-22] MEDS: ceFAZolin 2 GM PREMIX 50 ML IV SCH ×3 (03:17→20:00)
[2017-05-22] MEDS: RESP: ALBUTEROL 2.5 MG/IPRATROPIUM 0.5 MG NEB (SCH) NEB ×4 (03:38→20:45)
--- NOTE | 2017-05-22 04:53 | RADRPT ---
EXAM DATE/TIME: 05/22/2017 04:09 [facility] COMPARISON: CHEST SINGLE AP, May 21, 2017, 14:54. INDICATIONS : Shortness of breath, possible pulmonary disease. MEDICAL HISTORY : Arterial stenosis Asthma SURGICAL HISTORY : Tonsillectomy. section. CABG. AVR ENCOUNTER: Subsequent ACUITY: 2 days PAIN SCORE: 10/10 LOCATION: Bilateral chest FINDINGS: Stable appearance of the chest. Left lower lobe consolidation, small left effusion, mediastinal and c hest tubes, and right jugular line, cardiac valvular prosthesis noted. Cardiomegaly. CONCLUSION: No significant change has occurred. Thomas Anaya MD on May 22, 2017 at 4:51 Board Certified Radiologist. This report was verified electronically.
[2017-05-22 05:55] LABS: HEMATOCRIT 34.2 % (35.0-46.0); HEMOGLOBIN 11.3 GM/DL (11.6-15.3); MEAN CELL VOLUME 85.3 FL (80.0-100.0); MEAN CORPUSCULAR HEMOGLOBIN 28.2 PG (27.0-34.0); MEAN PLATELET VOLUME 9.5 FL (7.0-11.0); PLATELET COUNT 145 TH/MM3 (150-450); RED BLOOD COUNT 4.01 MIL/MM3 (4.00-5.30); RED CELL DISTRIBUTION WIDTH 15.5 % (11.6-17.2); WHITE BLOOD COUNT 10.5 TH/MM3 (4.0-11.0)
--- NOTE | 2017-05-22 06:09 | MB ---
cc: NIMESH CARLIN DO DATE OF CONSULTATION May 21, 2017 REASON FOR CONSULTATION Status post AVR, MVR. HISTORY OF PRESENT ILLNESS Tram Noyola is a pleasant 56-year-old female who sees my partner Dr. Kana Brown in the office and presented for an elective mini-AVR on May 21, 2017. She has since been intubated and during evaluation by AHMET there was concern for more significant mitral regurgitation. I was asked to come up and evaluate the transesophageal echocardiogram. I agree with overall assessment that there is at least moderate to severe mitral regurgitation and that this should change the plan and be fixed during surgery. The patient was then seen post-surgery and intubated at the time on no pressors. PAST MEDICAL HISTORY 1. Aortic stenosis. 2. Asthma. 3. Cardiomegaly. 4. CHF. 5. Morbid obesity. PAST SURGICAL HISTORY 1. . 2. Hernia. 3. Cardiac catheterization (May 01, 2017). No significant disease noted. Aortic valve area 0.83, aortic valve mean gradient 30, concern for severe low-flow, low gradient aortic stenosis. ALLERGIES DOXYCYCLINE. MINOCYCLINE TIGECYCLINE. MEDICATIONS 1. Atrovent 2 puffs t.i.d. 2. Albuterol 2 puffs every 4 hours as needed. 3. Coreg 3.125 mg every 12 hours. 4. Potassium 10 mEq daily. 5. Lasix 20 mg daily. FAMILY HISTORY Denies premature coronary artery disease or sudden cardiac within the family. 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 Denies tobacco, alcohol or drug abuse. REVIEW OF SYSTEMS 14-systems were reviewed including osteopathic pertinent positives and negatives above, otherwise negative. PHYSICAL EXAMINATION Vital Signs: Temperature 97.1, heart rate 88, blood pressure 97/56, respirations 12, pulse ox 93% on the ventilator. IN GENERAL: The patient is currently intubated and sedated. Eyes: Pupils are equal and reactive. Mucous membranes moist. ET tube in place. Neck: Supple. No JVD at 45 degrees. No carotid bruits heard bilaterally. Carotid upstroke is brisk in nature. Heart: Regular rate and rhythm. Positive first and second heart sounds with no murmurs, gallops or rubs. Sternotomy is currently covered, clean and dry. Lungs: Decreased breath sounds bilaterally but no overt wheezes, rales or rhonchi. Abdomen: Soft, nontender, nondistended. No organomegaly noted. Extremities: No clubbing, cyanosis or edema. Femoral and distal pulses intact bilaterally. Neurologically: Unable to determine at this time due to intubation and sedation. Skin: Warm, dry and intact. Osteopathic: Mild lordosis. No kyphoscoliosis. IMPRESSION 1. Severe low-flow low-grade aortic stenosis by cardiac catheterization. 2. At least moderate to severe mitral regurgitation by AHMET intraoperatively. 3. Asthma. 4. Morbid obesity. 5. Minimal coronary artery disease by cardiac catheterization. 6. Congestive heart failure secondary to aortic stenosis. RECOMMENDATIONS 1. Ms. Noyola presented originally for a mini-AVR but overall I agree with Dr. Hernández at that there is at least moderate to severe mitral regurgitation on AHMET and this should be fixed at the time of surgery. Mitral regurgitation was also noted at a blood pressure of 107/71 and not a significantly high blood pressure which could falsely elevate it. 2. Postprocedure she is currently on no vasopressors. We will continue supportive care. 3. Plan for extubation tonight. 4. Further recommendations will be made based on the hospital course. Thank you for allowing me to see Tram Noyola. It there are any questions, please do not hesitate to call. Nimesh Carlin DO VGP/SSB /11:34 PM /5:40 AM
[2017-05-22 06:29] LABS: BICARBONATE 23.2 MEQ/L (21.0-32.0); CALCIUM 7.8 MG/DL (8.5-10.1); CREATININE 0.66 MG/DL (0.50-1.00); MAGNESIUM 2.9 MG/DL (1.5-2.5)
[2017-05-22] MEDS: PANTOPRAZOLE SOD 40 MG DELAYED RELEASE TAB PO SCH (06:30)
[2017-05-22] MEDS ORDERED: FUROSEMIDE 20 MG/2 ML VIAL IV ONE (08:15)
[2017-05-22] MEDS: ASPIRIN 81 MG CHEW TAB PO SCH (08:37)
[2017-05-22] MEDS: AMIODARONE 200 MG TAB PO SCH ×2 (08:37→21:31)
[2017-05-22] MEDS: SODIUM CHLORIDE 0.9% FLUSH 10 ML FLUSH IV FLUSH SCH ×2 (08:38→21:00)
[2017-05-22] MEDS ORDERED: POTASSIUM CHLORIDE 10 MEQ CONTROLLED RELEASE TAB PO ONE (08:45)
[2017-05-22] MEDS ORDERED: GLUCAGON 1 MG/ML VIAL OTHER PRN (09:00)
[2017-05-22] MEDS ORDERED: DEXTROSE 50% IN WATER 50 ML VIAL(D50) IV PUSH PRN (09:00)
[2017-05-22] MEDS: FUROSEMIDE 20 MG TAB PO SCH (09:00)
[2017-05-22] MEDS ORDERED: POTASSIUM CHLORIDE 10 MEQ CONTROLLED RELEASE TAB PO SCH (09:00)
[2017-05-22] MEDS: MULTIVITAMINS/MINERALS THERAPEUTIC TAB PO SCH (09:00)
[2017-05-22] MEDS ORDERED: BISACODYL 10 MG SUPP RECTAL PRN (09:00)
--- NOTE | 2017-05-22 09:01 | PD.CAR.PN ---
CVT Progress Note Subjective/Hospital Course: A 56-year-old female, history of aortic valve stenosis that has been followed by Dr. Brown for about two years. She has been having increasing shortness of breath since . She was admitted back in March for congestive heart failure, bilateral pleural effusions. She had recently, prior to that, had this shortness of breath for about six weeks. She saw her primary care physician and she was treated with a Z-Samir, nebulizer, rescue inhaler and Medrol Dosepak. BNP was 361. She did have some bilateral pleural effusions. CT of the chest at that time showed no pulmonary emboli. They put her on IV Lasix which improved her symptoms. She was then discharged home. At that time, she had an echocardiogram in the facility which showed an ejection fraction of 50%, mild to moderate aortic valve stenosis, an aortic valve area of 0.8, trace aortic insufficiency, no tricuspid regurgitation. We were consulted after she underwent elective cardiac cath which showed very minimal 20% disease in the distal LAD, 10% in the circ, right-sided heart pressures include RA pressures of 10, RV pressure of 38/9, PA pressures of 38/26, a wedge pressure of 32. She returned for elective surgery PAST MEDICAL HISTORY: Aortic stenosis with a worsening aortic valve area, Asthma, Cardiomegaly, Recent CHF, Dyspnea surgery 05/21: Aortic Valve Replacement with a 19 mm On-X Mechanical Aortic Valve, Mitral Valve Repair with a 28 mm Profile 3D Annuloplasty Ring. crystalloid 1800cc, cell saver 83, EBL 1000cc 05/22 weaned of partial NRB mask, now on 50% VM dose of IV lasix given, hx of asthma , Singulair started on amiodarone, eval to start home coreg in am will need to start coumadin after chest tubes out, goal of 2 ( Lifetime) eval later today for transfer to stepdown Objective: GENERAL: A&O x 3 SKIN: Warm and dry. prevena dressing to chest HEAD: Normocephalic. EYES: No scleral icterus. No injection or drainage. NECK: Supple, trachea midline. No JVD or lymphadenopathy. CARDIOVASCULAR: Regular rate and rhythm without murmurs, gallops, or rubs. general edema RESPIRATORY: Breath sounds equal bilaterally. No accessory muscle use. faint exp wheeze, diminished in abases GASTROINTESTINAL: Abdomen soft, non-tender, nondistended. MUSCULOSKELETAL: No cyanosis, or edema. BACK: Nontender without obvious deformity. No CVA tenderness. Vital Signs Date Time Temp Pulse Resp B/P (MAP) Pulse Ox O2 Delivery O2 Flow Rate FiO2 05/22/17 08:20 97 Venturi Mask 6.00 40 05/22/17 07:00 93 05/22/17 07:00 98.7 93 16 115/57 (76) 99 124/67 (86) 05/22/17 07:00 99 Partial Non-Rebreather 10.00 05/22/17 03:00 97 Partial Non-Rebreather 10.00 05/22/17 03:00 97.6 87 16 104/69 (81) 97 11/63 (46) 05/22/17 03:00 87 05/22/17 02:47 16 05/21/17 23:00 97.5 86 16 91/63 (72) 97 95/56 (69) 05/21/17 23:00 97 Partial Non-Rebreather 10.00 05/21/17 23:00 86 05/21/17 21:12 95 Partial Non-Rebreather 10.00 05/21/17 20:59 97 Non-Rebreather 15.00 05/21/17 19:00 89 05/21/17 19:00 97 Partial Non-Rebreather 100 05/21/17 19:00 97.7 89 16 98/67 (77) 98 99/57 (71) 05/21/17 16:48 92 Venturi Mask 6 50 05/21/17 16:23 97.0 05/21/17 16:00 65 05/21/17 15:48 40 05/21/17 15:00 70 05/21/17 15:00 97 Mechanical Ventilator 75 05/21/17 15:00 97.0 70 13 96/56 (69) 97 104/61 (75) 05/21/17 14:03 95 75 05/21/17 14:03 97.1 05/21/17 14:02 65 05/21/17 14:02 97.1 88 12 97/58 (71) 93 100/62 (75) 05/21/17 14:02 93 Mechanical Ventilator 60 Labs: Laboratory Tests Test 05/22/17 05:00 White Blood Count 10.5 TH/MM3 (4.0-11.0) Red Blood Count 4.01 MIL/MM3 (4.00-5.30) Hemoglobin 11.3 GM/DL (11.6-15.3) Hematocrit 34.2 % (35.0-46.0) Mean Corpuscular Volume 85.3 FL (80.0-100.0) Mean Corpuscular Hemoglobin 28.2 PG (27.0-34.0) Mean Corpuscular Hemoglobin Concent 33.0 % (32.0-36.0) Red Cell Distribution Width 15.5 % (11.6-17.2) Platelet Count 145 TH/MM3 (150-450) Mean Platelet Volume 9.5 FL (7.0-11.0) Blood Urea Nitrogen 20 MG/DL (7-18) Creatinine 0.66 MG/DL (0.50-1.00) Random Glucose 135 MG/DL (74-106) Calcium Level 7.8 MG/DL (8.5-10.1) Magnesium Level 2.9 MG/DL (1.5-2.5) Sodium Level 140 MEQ/L (136-145) Potassium Level 4.3 MEQ/L (3.5-5.1) Chloride Level 108 MEQ/L (98-107) Carbon Dioxide Level 23.2 MEQ/L (21.0-32.0) Anion Gap 9 MEQ/L (5-15) Estimat Glomerular Filtration Rate 93 ML/MIN (>89) Result Diagram: 05/22/17 0500 05/22/17 0500 Telemetry: NSR (1) Asthma Plan: add singulair (2) Aortic stenosis (3) S/P mitral valve repair (4) S/P AVR (aortic valve replacement) Plan: start coumadin after chest tubes out goal 2.0 ( On-x ) valve OOB ambulate/ pt wean 02 as tolerated gentle diuresis start coreg in am on amiodarone (5) Mitral insufficiency (6) Congestive heart failure (CHF) Plan: gentle diuresis Estella Ellison May 22, 2017 09:01
[2017-05-22] MEDS: INSULIN ASPART SUPPLEMENTAL SCALE SQ SCH ×4 (10:00→21:43)
[2017-05-22] MEDS: MAGNESIUM HYDROXIDE SUSP 30 ML CUP PO SCH (10:38)
--- NOTE | 2017-05-22 11:34 | PD.CARD.PN ---
Subjective Subjective Remarks Surgery yesterday, extubated last night Doing well, up to chair Objective Medications Current Medications Medications (Trade) Dose Ordered Sig/Agnes Route Start Time Stop Time Status Last Admin (NS Flush) 2 ml BID IV FLUSH 05/21/17 21:00 05/22/17 08:38 (NS Flush) 2 ml UNSCH PRN IV FLUSH 05/21/17 13:30 (Aspirin Chew) 81 mg DAILY PO 05/22/17 09:00 05/22/17 08:37 (Protonix) 40 mg DAILY@06 PO 05/22/17 06:00 05/22/17 06:30 (Cordarone) 400 mg Q12HR PO 05/21/17 21:00 05/22/17 08:37 (Tylenol) 650 mg Q4H PRN PO 05/21/17 13:30 ([place] 5-325 Mg) 1 tab Q3H PRN PO 05/21/17 13:30 (Toradol Inj) 15 mg Q6H PRN IV PUSH 05/21/17 13:30 05/23/17 13:29 05/21/17 17:31 (Zofran Inj) 4 mg Q6H PRN IV PUSH 05/21/17 13:30 05/21/17 19:39 Cefazolin Sodium/ Dextrose 50 ml @ 100 mls/hr Q8H IV 05/21/17 20:00 05/23/17 04:29 05/22/17 03:17 (Sodium Bicarbonate 8.4% Inj) 50 meq UNSCH PRN IV PUSH 05/21/17 13:30 (Duoneb Neb) 1 ampule Q2HR NEB PRN NEB 05/21/17 13:30 (Lasix) 20 mg DAILY PO 05/22/17 09:00 (Duoneb Neb) 1 ampule Q6HR WHILE AWAKE NEB NEB 05/22/17 14:00 05/24/17 13:59 (Colace) 100 mg BID PO 05/22/17 21:00 (Theragran M Tab) 1 tab DAILY PO 05/22/17 09:00 (Milk Of Magnesia Liq) 30 ml DAILY PO 05/22/17 09:00 05/22/17 10:38 (Dulcolax Supp) 10 mg UNSCH PRN RECTAL 05/22/17 09:00 (Miralax) 17 gm DAILY PO 05/23/17 09:00 (Senokot) 8.6 mg HS PO 05/22/17 21:00 (Fleets Enema (Adult)) 118 ml UNSCH PRN RECTAL 05/24/17 09:00 (NovoLOG SUPPLEMENTAL SCALE) 1 02,06,10,14,18,22 SQ 05/22/17 10:00 05/23/17 06:01 (D50w (Vial) Inj) 50 ml UNSCH PRN IV PUSH 05/22/17 09:00 (Glucagon Inj) 1 mg UNSCH PRN OTHER 05/22/17 09:00 (Singulair) 10 mg HS PO 05/22/17 21:00 (KCl) 10 meq DAILY PO 05/23/17 09:00 (NovoLOG SUPPLEMENTAL SCALE) 1 ACHS SLIDING SCALE SQ 05/23/17 12:00 (Lasix Inj) 20 mg ONCE ONCE IV PUSH 05/22/17 11:30 05/22/17 11:31 UNV Vital Signs / I&O Vital Signs Date Time Temp Pulse Resp B/P (MAP) Pulse Ox O2 Delivery O2 Flow Rate FiO2 05/22/17 08:20 97 Venturi Mask 6.00 40 05/22/17 07:00 93 05/22/17 07:00 98.7 93 16 115/57 (76) 99 124/67 (86) 05/22/17 07:00 99 Partial Non-Rebreather 10.00 05/22/17 03:00 97 Partial Non-Rebreather 10.00 05/22/17 03:00 97.6 87 16 104/69 (81) 97 11/63 (46) 05/22/17 03:00 87 05/22/17 02:47 16 05/21/17 23:00 97.5 86 16 91/63 (72) 97 95/56 (69) 05/21/17 23:00 97 Partial Non-Rebreather 10.00 05/21/17 23:00 86 05/21/17 21:12 95 Partial Non-Rebreather 10.00 05/21/17 20:59 97 Non-Rebreather 15.00 05/21/17 19:00 89 05/21/17 19:00 97 Partial Non-Rebreather 100 05/21/17 19:00 97.7 89 16 98/67 (77) 98 99/57 (71) 05/21/17 16:48 92 Venturi Mask 6 50 05/21/17 16:23 97.0 05/21/17 16:00 65 05/21/17 15:48 40 05/21/17 15:00 70 05/21/17 15:00 97 Mechanical Ventilator 75 05/21/17 15:00 97.0 70 13 96/56 (69) 97 104/61 (75) 05/21/17 14:03 95 75 05/21/17 14:03 97.1 05/21/17 14:02 65 05/21/17 14:02 97.1 88 12 97/58 (71) 93 100/62 (75) 05/21/17 14:02 93 Mechanical Ventilator 60 I/O 05/21/17 05/21/17 05/21/17 05/22/17 05/22/17 05/22/17 07:00 15:00 23:00 07:00 15:00 23:00 Intake Total 2730 ml 1116 ml 766 ml 212 ml Output Total 1550 ml 665 ml 785 ml Balance 1180 ml 451 ml -19 ml 212 ml Intake Oral 0 ml 480 ml IV Total 100 ml 116 ml 36 ml 212 ml Autotransfusion 830 ml Albumin 250 ml Other 1800 ml 1000 ml Output Urine Total 550 ml 575 ml 635 ml Gastric Drainage Total 0 ml Chest Tube Drainage Total 90 ml 150 ml Estimated Blood Loss 1000 ml Physical Exam GENERAL: NAD, AAOx3 SKIN: Warm and dry. HEAD: Atraumatic. Normocephalic. EYES: Pupils equal and round. No scleral icterus. No injection or drainage. ENT: No nasal bleeding or discharge. Mucous membranes pink and moist. NECK: Trachea midline. No JVD. CARDIOVASCULAR: Regular rate and rhythm. Mechanical click crisp RESPIRATORY: No accessory muscle use. Decreased breath sounds bilaterally GASTROINTESTINAL: Abdomen soft, non-tender, nondistended. Hepatic and splenic margins not palpable. MUSCULOSKELETAL: 1+ pitting edema NEUROLOGICAL: Awake and alert. No obvious cranial nerve deficits. Motor grossly within normal limits. Five out of 5 muscle strength in the arms and legs. Normal speech. PSYCHIATRIC: Appropriate mood and affect; insight and judgment normal. Laboratory Laboratory Tests Test 05/22/17 05:00 White Blood Count 10.5 TH/MM3 Red Blood Count 4.01 MIL/MM3 Hemoglobin 11.3 GM/DL Hematocrit 34.2 % Mean Corpuscular Volume 85.3 FL Mean Corpuscular Hemoglobin 28.2 PG Mean Corpuscular Hemoglobin Concent 33.0 % Red Cell Distribution Width 15.5 % Platelet Count 145 TH/MM3 Mean Platelet Volume 9.5 FL Blood Urea Nitrogen 20 MG/DL Creatinine 0.66 MG/DL Random Glucose 135 MG/DL Calcium Level 7.8 MG/DL Magnesium Level 2.9 MG/DL Sodium Level 140 MEQ/L Potassium Level 4.3 MEQ/L Chloride Level 108 MEQ/L Carbon Dioxide Level 23.2 MEQ/L Anion Gap 9 MEQ/L Estimat Glomerular Filtration Rate 93 ML/MIN Imaging Last 24 hours Impressions Chest X-Ray 05/22/17 0500 Signed Impressions: Service Date/Time: , May 22, 2017 04:09 - CONCLUSION: No significant change has occurred. Thomas Anaya MD Assessment and Plan Problem List: (1) Asthma ICD Codes: J45.909 - Unspecified asthma, uncomplicated Status: Acute (2) Aortic stenosis ICD Codes: I35.0 - Nonrheumatic aortic (valve) stenosis Status: Chronic (3) S/P mitral valve repair ICD Codes: Z98.890 - Other specified postprocedural states (4) S/P AVR (aortic valve replacement) ICD Codes: Z95.2 - Presence of prosthetic heart valve (5) Mitral insufficiency ICD Codes: I34.0 - Nonrheumatic mitral (valve) insufficiency (6) Congestive heart failure (CHF) ICD Codes: I50.9 - Heart failure, unspecified Assessment and Plan 1) Severe s/p 19mm OnX mechanical valve Plan for starting Coumadin 2) Mod to severe MR s/p 28mm ring 3) Given Lasix 20 without any outpt, will give additional 20mg 4) Wean O2 as possible Nimesh Cedeno DO May 22, 2017 11:34
[2017-05-22] MEDS ORDERED: FUROSEMIDE 20 MG/2 ML VIAL IV PUSH ONE (12:00)
[2017-05-22] MEDS: ONDANSETRON HCL 4 MG/2 ML VIAL IV PUSH PRN (12:28)
--- NOTE | 2017-05-22 14:43 | EKG ---
Date Performed: 05/22/2017 Time Performed: 05:21:36 PTAGE: 56 years EKG: Sinus rhythm Possible anterior infarct - age undetermined Inferior T wave changes are nonspecific Low QRS voltage s in precordial leads Abnormal ECG NO PREVIOUS TRACING DOCTOR: Husam Rivera Interpretating Date/Time 05/22/2017 14:36:44
--- NOTE | 2017-05-22 15:54 | HHI.FF ---
Face to Face Verification Diagnosis: (1) S/P mitral valve repair (2) S/P AVR (aortic valve replacement) (3) Mitral insufficiency (4) Congestive heart failure (CHF) (5) Asthma (6) Aortic stenosis Home Health Nursing Order: Medication education-adverse effect Wound care and dressing changes Nursing assessment with vital signs Instructions: Heart and Vascular Surgery patients *Special attention to sternal dressing Mandatory frequency Assess and evaluation, 4 days in a row The next week 3X week 2 times a week for 4 weeks 1 time a week for 5 weeks Schedule Heart and Vascular patients for full 60 day certification period Initial visit Review Open Heart Surgery Discharge Instructions (Sternal precautions, Activity, Elastic hose, Incision care, Driving, Incentive spirometry, Smoking, [place], Work and other) Need Betadine to paint incision Medication reconciliation Importance of follow up care/ check on appointments Make calendar record temperature daily When to call [facility] nurse, review instructions, phone list Incentive Spirometry, demonstration Visit 1- Begin discharge instruction for patient family and/ or caregiver using teach back method- Signs and symptoms of infection Disease characteristics Medicines and side effects Foods and nutrition/ appetite Infection control/ hand washing/ hygiene Visit 2- Continue teaching Discharge instructions- include additional information on smoking cessation , sternal dressing (sternal vac) Visit 3- Continue teaching- Cough and deep breathing, incision monitoring. Choose my plate Visit 4- Continue teaching- Discuss limitations Discuss how they are feeling Discuss progress toward goals Remaining visits- continue teaching and monitoring For any questions please call : PREVENA Single Use Negative Wound Therapy System Caregiver Instruction Sheet 1. A Prevena dressing system was applied to the chest incision during surgery , to promote wound healing. It works via a suction device (negative pressure wound therapy) to remove low to moderate levels of exudate (drainage) and infectious materials. We recommend that the device stay in place for up to seven days, from day of surgery. 2. Day of Surgery____2/ Day of Removal ____/ 3. The dressing should only be removed by a health customer care professional. Please arrange removal of device to coincide with Home Health visit and or with Nursing staff at Rehab 4. If skin reddening or irritation of skin occurs, or excessive drainage, please notify the Cardiovascular Surgeons office at [phone]. 5. Light showering is permissible; however the pump should be disconnected and placed in safe location, where it will not get wet. The dressing should not be exposed to direct spray or submerged in water. No bath tub / shower only. Ensure the end of the tubing attached to the dressing is facing down so that water does not enter the top of the tube. 6. To remove Prevena dressing: press purple button to turn off device / remove the suction. Then disconnect the tubing from the pump. The fixation strips should be stretched away from the skin and the dressing lifted at one corner and peeled back until it has been fully removed. 7. After removal, it is ok to shower daily using liquid dial soap and clean wash cloth, rinse and pat dry, and leave incision open to air dry. For any concerns regarding Prevena dressing, and or wounds, please contact Haydee Hernandez, patient navigator at [phone] or notify the Cardiovascular Surgeons office at [phone]. Incentive spirometry Q1 hr x 10, while awake, also use acapella device hourly whole awake Sternal Breast Bone Precautions: NO pushing or pulling, ( pt must use sternal pillow to support chest with all activities and with coughing ( takes up to 3 months breast bone to heal ) All females to wear sternal bra , launder as needed Daily incision care: ok to shower daily, no tub bath. Wash all incisions with liquid dial soap, clean wash cloth to each site, rinse and pat dry. Observe for any signs of infection, such as drainage which is dark yellow, chu, green or foul smelling. Immediately report to the surgeon any drainage from the chest incision, or legs, and for any abnormal drainage from the chest tube sites. Notify surgeon if any temp >101.5 degrees F. When specialty dressing removed/ or if you do not have one, continue to shower daily as above, then rinse and pat incision dry and paint with betadine daily x 5 days. Allow steri strips to fall off if you have any. Avoid lotions, creams, salves, oils, etc. for the first month Please see attached forms for additional instructions regarding post Open Heart specialty wound vacuum dressings. CECE or Prevena , Dressing to be removed by Nursing staff on For Dr. Arcos patients , please obtain CBC, BMP, PA & Lat CXR in 2 weeks, results to Dr. Arcos ( prescription will be given) ( ) (Tele: [phone]) , Valve replacement pts will need 2decho in 2 weeks with results to Dr. Arcos . Please obtain 2 d echo at your line locator office if possible F/U appointment: as per DC instructions: PCP in 2 weeks, CV surgeon 2 weeks, Self Rising Flour Mixer 3-4 weeks For any questions regarding incisions/ dressing / meds / post op care or above Symptoms, Friday 8am-5pm Heart & Vascular Surgery Office ( Dr. Hernández & Dr. Arcos), After Hours / Nights (5pm -8am) Weekends and Holidays Please call [facility] Cardiac [facility] Unit ([facility]) Charge Nurse Incentive spirometry Q1 hr x 10, while awake, also use acapella device hourly whole awake Sternal Breast Bone Precautions: NO pushing or pulling, ( pt must use sternal pillow to support chest with all activities and with coughing ( takes up to 3 months breast bone to heal ) All females to wear sternal bra , launder as needed Daily incision care: ok to shower daily, no tub bath. Wash all incisions with liquid dial soap, clean wash cloth to each site, rinse and pat dry. Observe for any signs of infection, such as drainage which is dark yellow, chu, green or foul smelling. Immediately report to the surgeon any drainage from the chest incision, or legs, and for any abnormal drainage from the chest tube sites. Notify surgeon if any temp >101.5 degrees F. When specialty dressing removed/ or if you do not have one, continue to shower daily as above, then rinse and pat incision dry and paint with betadine daily x 5 days. Allow steri strips to fall off if you have any. Avoid lotions, creams, salves, oils, etc. for the first month Please see attached forms for additional instructions regarding post Open Heart specialty wound vacuum dressings. CECE or Prevena , Dressing to be removed by Nursing staff on __05/28/17 please obtain PT/INR on Friday results to Dr Hernández ( prescription will be given) ( ) (Tele: [phone]) , F/U appointment: as per DC instructions: PCP in 2 weeks, CV surgeon 2 weeks, Self Rising Flour Mixer 3-4 weeks For any questions regarding incisions/ dressing / meds / post op care or above Symptoms, Friday 8am-5pm Heart & Vascular Surgery Office ( Dr. Hernández & Dr. Arcos), After Hours / Nights (5pm -8am) Weekends and Holidays Please call [facility] Cardiac Intermediate Care Unit (C[facility]) Charge Nurse I have seen patient Tram Noyola on 05/22/17. My clinical findings support the need for the requested home health care services because: Deconditioned w/ increased weakness I certify that my clinical findings support that this patient is homebound because: Post-op weakness (PT/ INR Friday and prn / coumadin teaching / goal 2.0 ) Estella Ellison May 22, 2017 15:54
--- NOTE | 2017-05-22 15:56 | PD.OP ---
cc: Veronika Hernández MD; Jesus Watkins MD Operative Report Date of Surgery: May 22, 2017 Preoperative Diagnosis: Postoperative Diagnosis: Procedure: 1. Minimally Invasive Mitral Valve Replacement with a 29 mm Mosaic Cinch Tissue Valve 2. Right Femoral Artery and Vein Cannulation 3. Primary Closure of Atrial Septal Defect 4. Intercostal Nerve Block Surgeon: Veronika Hernández Watershed Tender(s): Dc Torrez Operation and Findings: PREOPERATIVE DIAGNOSES 1. Severe Mitral Insufficiency 2. CHF POSTOPERATIVE DIAGNOSES 1. Severe Mitral Insufficiency 2. CHF 3. Interatrial Septal Defect SURGICAL PROCEDURE 1. Minimally Invasive Mitral Valve Replacement with a 29 mm Mosaic Cinch Tissue Valve 2. Right Femoral Artery and Vein Cannulation 3. Primary Closure of Atrial Septal Defect 4. Intercostal Nerve Block PAINT DEPARTMENT SUPERVISOR HUMBLE Alex ANESTHESIA General endotracheal. COLLEGE ATHLETE Alejandro Fairchild CRNA, Merced Bassett MD PREPARATION ChloraPrep. NEEDLE, SPONGE AND INSTRUMENT COUNT Correct. DRAINS 32 Fr Chest Tube. COMPLICATIONS None. INDICATIONS The patient is a 77 -year-old with severe mitral regurgitation, presenting for surgical correction of the above pathology. DESCRIPTION OF PROCEDURE The patient was brought to the operating room and placed supine on the OR table. Following the induction of adequate general endotracheal anesthesia and placement of appropriate monitoring devices, the patient was then prepped and draped in the standard sterile fashion. Intraoperative AHMET revealed severe MR with thickened and rheumatic leaflets. The area of coaptation of the leaflets was very small and the chords were elongated with the plane of coaptation in the left atrium. An incision was made over the right femoral vessels and the Common Femoral artery and vein dissected free. The patient was systemically heparinized and anticoagulation monitored by serial ACT measurements. A pursestring sutures of 5 -0 Prolene was placed on the femoral artery and another one on the femoral vein. At this point, arterial and venous cannulae were introduced using the Seldinger technique with AHMET guidance with confirmation of the venous cannula in the SVC, and attached to the arterial and venous components of the bypass circuit respectively. A mini-thoracotomy (6 cm) was then performed in the 4th ICS anterior axillary line and carried down to the pleura. The right pleural space was entered. The patient was placed on cardiopulmonary bypass. The pericardium was then opened longitudinally approximately 2.5-3 cm anterior to the right phrenic nerve from the IVC to the ascending aorta. Stay sutures were placed and the heart exposed. The aorta was dissected free from the underlying tissue and an antegrade needle placed on the proximal aorta. Continuous diffusion of CO2 was used from hereon until the closure. The crossclamp was applied and 1.6 L of antegrade cardioplegia solution ( [place] HTK) was given. Upon achieving adequate diastolic arrest of the heart the inter-atrial groove was dissected free. The left atrium was opened and the mitral valve analyzed. Mitral valve exposure was obtained using the atrial lift retractor and the Visor. The valve was very thickened and rheumatic appearing with a cleft in the anterior leaflet and associated perforation in the leaflet communicating with an interatrial septal defect. Therefore plans were made to proceed with replacement of the mitral valve. The ASD was closed primarily with a running 4-0 Prolene stitch. The anterior leaflet was excised while preserving the primary chords. Horizontal mattress sutures of interrupted 2-0 Ethibond were placed on the mitral annulus with pledgets on the atrial side. After adequate sizing, a 29 mm Mosaic Cinch tissue Mitral valve was brought in the surgical field and the sutures passed through the skirt and the valve was situated and anchored with the Cor-Knot device. This appeared to be a good fit. Gradual rewarming was initiated and the septum closed closed in 2 layers with a 4-0 Prolene suture. Ventricular pacing wires were placed and exited through the chest drain site. With the aortic root vent on suction, the cross clamp was removed and upon achieving normothermic cardiac activity, patient was weaned from CPB without any difficulty. Transesophageal echocardiography revealed a well-situated mitral prosthesis with no evidence of perivalvular leak and no mitral stenosis or regurgitation. No ASD was identified. Protamine was given. Decannulation was performed and all sites were inspected for hemostasis. The femoral artery had a good distal and pedal pulse. At this point the closure was undertaken. Intercostal nerve block was performed using Exparel at the level of the incision as well as three rib spaces above and below. A 32 Fr chest tube placed in the pleural space. The intercostal space was approximated with 2 pericostal sutures of #1 Vicryl. The musculo-fascial layer was then closed in 2 layers. The skin was reapproximated with subcuticular stitch and Dermabond. Similarly, after irrigation with antibiotic solution, the femoral incision was closed in 2 layers and the skin closed with subcuticular stitch and Dermabond. The patient tolerated the procedure well and was transferred to CVICU in stable condition. Veronika Hernández MD May 22, 2017 15:56
[2017-05-22] MEDS: SENNOSIDES 8.6 MG TAB PO SCH (21:00)
[2017-05-22] MEDS: ACETAMINOPHEN/HYDROcodone 325 MG/5 MG TAB PO PRN (21:31)
[2017-05-22] MEDS: MONTELUKAST SODIUM 10 MG TAB PO SCH (21:31)
[2017-05-22] MEDS: DOCUSATE SODIUM 100 MG CAP PO SCH (21:32)
[2017-05-23] VITALS (25 sets, daily range): BP systolic 101–139; BP diastolic 58–78; PULSE 80–100; RESP 16–21; TEMP 97.4–98.9; O2SAT 92–97
[2017-05-23] MEDS: INSULIN ASPART SUPPLEMENTAL SCALE SQ SCH ×5 (01:28→20:49)
[2017-05-23 04:56] LABS: AUTOMATED NEUTROPHIL # 11.9 TH/MM3 (1.8-7.7); BASOPHIL % 0.1 % (0.0-2.0); EOSINOPHIL % 0.3 % (0.0-4.0); HEMATOCRIT 35.6 % (35.0-46.0); HEMOGLOBIN 11.7 GM/DL (11.6-15.3); LYMPH % 11.4 % (9.0-44.0); LYMPHOCYTE # 1.7 TH/MM3 (1.0-4.8); MEAN CELL VOLUME 84.7 FL (80.0-100.0); MEAN CORPUSCULAR HEMOGLOBIN 27.8 PG (27.0-34.0); MEAN CORPUSCULAR HGB CONC 32.8 % (32.0-36.0); MEAN PLATELET VOLUME 9.7 FL (7.0-11.0); MONO % 8.5 % (0.0-8.0); MONOCYTE # 1.3 TH/MM3 (0-0.9); NEUT % 79.7 % (16.0-70.0); PLATELET COUNT 195 TH/MM3 (150-450); RED CELL DISTRIBUTION WIDTH 15.5 % (11.6-17.2); WHITE BLOOD COUNT 14.9 TH/MM3 (4.0-11.0)
[2017-05-23 05:06] LABS: INTERNATIONAL NORMALIZED RATIO 1.1 RATIO; PROTHROMBIN TIME - PATIENT 11.4 SEC (9.8-11.6)
[2017-05-23] MEDS: ceFAZolin 2 GM PREMIX 50 ML IV SCH (05:14)
[2017-05-23] MEDS: ACETAMINOPHEN/HYDROcodone 325 MG/5 MG TAB PO PRN (05:15)
[2017-05-23] MEDS: PANTOPRAZOLE SOD 40 MG DELAYED RELEASE TAB PO SCH (05:15)
[2017-05-23 05:25] LABS: BICARBONATE 27.2 MEQ/L (21.0-32.0); CALCIUM 8.4 MG/DL (8.5-10.1); CREATININE 1.07 MG/DL (0.50-1.00); MAGNESIUM 2.8 MG/DL (1.5-2.5)
[2017-05-23] MEDS: RESP: ALBUTEROL 2.5 MG/IPRATROPIUM 0.5 MG NEB (SCH) NEB ×3 (07:31→22:01)
[2017-05-23] MEDS: AMIODARONE 200 MG TAB PO SCH ×2 (09:36→20:49)
[2017-05-23] MEDS: POTASSIUM CHLORIDE 10 MEQ CONTROLLED RELEASE TAB PO SCH (09:36)
[2017-05-23] MEDS: MULTIVITAMINS/MINERALS THERAPEUTIC TAB PO SCH (09:36)
[2017-05-23] MEDS: MAGNESIUM HYDROXIDE SUSP 30 ML CUP PO SCH (09:36)
[2017-05-23] MEDS: POLYETHYLENE GLYCOL 17 GM PKG PO SCH (09:36)
[2017-05-23] MEDS: FUROSEMIDE 20 MG TAB PO SCH (09:36)
[2017-05-23] MEDS: DOCUSATE SODIUM 100 MG CAP PO SCH ×2 (09:36→20:50)
[2017-05-23] MEDS: ASPIRIN 81 MG CHEW TAB PO SCH (09:37)
[2017-05-23] MEDS: SODIUM CHLORIDE 0.9% FLUSH 10 ML FLUSH IV FLUSH SCH ×2 (09:38→20:50)
[2017-05-23] MEDS: METOPROLOL TARTRATE 25 MG TAB PO SCH ×2 (11:46→20:49)
--- NOTE | 2017-05-23 12:07 | PD.CARD.PN ---
Subjective Subjective Remarks Doing well, up to chair Incisional chest pain Objective Medications Current Medications Medications (Trade) Dose Ordered Sig/Agnes Route Start Time Stop Time Status Last Admin (NS Flush) 2 ml BID IV FLUSH 05/21/17 21:00 05/23/17 09:38 (NS Flush) 2 ml UNSCH PRN IV FLUSH 05/21/17 13:30 (Aspirin Chew) 81 mg DAILY PO 05/22/17 09:00 05/23/17 09:37 (Protonix) 40 mg DAILY@06 PO 05/22/17 06:00 05/23/17 05:15 (Cordarone) 400 mg Q12HR PO 05/21/17 21:00 05/23/17 09:36 (Tylenol) 650 mg Q4H PRN PO 05/21/17 13:30 ([place] 5-325 Mg) 1 tab Q3H PRN PO 05/21/17 13:30 05/23/17 05:15 (Toradol Inj) 15 mg Q6H PRN IV PUSH 05/21/17 13:30 05/23/17 13:29 05/21/17 17:31 (Zofran Inj) 4 mg Q6H PRN IV PUSH 05/21/17 13:30 05/22/17 12:28 (Sodium Bicarbonate 8.4% Inj) 50 meq UNSCH PRN IV PUSH 05/21/17 13:30 (Duoneb Neb) 1 ampule Q2HR NEB PRN NEB 05/21/17 13:30 (Lasix) 20 mg DAILY PO 05/22/17 09:00 05/23/17 09:36 (Duoneb Neb) 1 ampule Q6HR WHILE AWAKE NEB NEB 05/22/17 14:00 05/24/17 13:59 05/23/17 11:02 (Colace) 100 mg BID PO 05/22/17 21:00 05/23/17 09:36 (Theragran M Tab) 1 tab DAILY PO 05/22/17 09:00 05/23/17 09:36 (Milk Of Magnesia Liq) 30 ml DAILY PO 05/22/17 09:00 05/23/17 09:36 (Dulcolax Supp) 10 mg UNSCH PRN RECTAL 05/22/17 09:00 (Miralax) 17 gm DAILY PO 05/23/17 09:00 05/23/17 09:36 (Senokot) 8.6 mg HS PO 05/22/17 21:00 05/22/17 21:00 (Fleets Enema (Adult)) 118 ml UNSCH PRN RECTAL 05/24/17 09:00 (D50w (Vial) Inj) 50 ml UNSCH PRN IV PUSH 05/22/17 09:00 (Glucagon Inj) 1 mg UNSCH PRN OTHER 05/22/17 09:00 (Singulair) 10 mg HS PO 05/22/17 21:00 05/22/17 21:31 (KCl) 10 meq DAILY PO 05/23/17 09:00 05/23/17 09:36 (NovoLOG SUPPLEMENTAL SCALE) 1 ACHS SLIDING SCALE SQ 05/23/17 12:00 (Lopressor) 12.5 mg Q12HR PO 05/23/17 11:00 05/23/17 11:46 (Lasix Inj) 20 mg ONCE ONCE IV PUSH 05/23/17 14:00 05/23/17 14:01 (KCl) 10 meq ONCE ONCE PO 05/23/17 14:00 05/23/17 14:01 Vital Signs / I&O Vital Signs Date Time Temp Pulse Resp B/P (MAP) Pulse Ox O2 Delivery O2 Flow Rate FiO2 05/23/17 11:00 94 05/23/17 11:00 97.4 97 18 114/68 (83) 93 05/23/17 11:00 93 Room Air 05/23/17 10:00 95 05/23/17 09:00 100 05/23/17 08:00 90 05/23/17 08:00 93 Room Air 05/23/17 08:00 97.9 94 16 126/78 (94) 93 05/23/17 07:31 Nasal Cannula 05/23/17 07:00 88 05/23/17 06:32 91 05/23/17 05:21 94 05/23/17 04:12 95 05/23/17 03:20 98.4 80 21 139/74 (95) 97 05/23/17 03:20 Nasal Cannula 2.00 05/23/17 03:13 85 05/23/17 02:00 85 05/22/17 23:00 98.0 96 14 117/80 (92) 96 05/22/17 23:00 96 05/22/17 23:00 96 Nasal Cannula 3.00 05/22/17 22:31 14 05/22/17 20:54 99 Nasal Cannula 3.00 05/22/17 19:00 99 Nasal Cannula 3.00 05/22/17 19:00 98.0 96 14 138/95 (109) 96 05/22/17 19:00 96 05/22/17 16:00 97.9 93 18 121/70 (87) 98 05/22/17 15:00 98.1 93 20 143/90 (107) 99 05/22/17 15:00 93 05/22/17 15:00 99 Partial Non-Rebreather 10.00 I/O 05/22/17 05/22/17 05/22/17 05/23/17 05/23/17 05/23/17 07:00 15:00 23:00 07:00 15:00 23:00 Intake Total 766 ml 212 ml 600 ml 530 ml Output Total 785 ml 800 ml 800 ml Balance -19 ml 212 ml -200 ml -270 ml Intake Oral 480 ml 600 ml 480 ml IV Total 36 ml 212 ml 50 ml Albumin 250 ml Output Urine Total 635 ml 800 ml 600 ml Chest Tube Drainage Total 150 ml 200 ml # Bowel Movements 0 Physical Exam GENERAL: NAD, AAOx3 SKIN: Warm and dry. HEAD: Atraumatic. Normocephalic. EYES: Pupils equal and round. No scleral icterus. No injection or drainage. ENT: No nasal bleeding or discharge. Mucous membranes pink and moist. NECK: Trachea midline. No JVD. CARDIOVASCULAR: Regular rate and rhythm. Mechanical click crisp RESPIRATORY: No accessory muscle use. Decreased breath sounds bilaterally GASTROINTESTINAL: Abdomen soft, non-tender, nondistended. Hepatic and splenic margins not palpable. MUSCULOSKELETAL: 1+ pitting edema NEUROLOGICAL: Awake and alert. No obvious cranial nerve deficits. Motor grossly within normal limits. Five out of 5 muscle strength in the arms and legs. Normal speech. PSYCHIATRIC: Appropriate mood and affect; insight and judgment normal. Laboratory Laboratory Tests Test 05/23/17 04:10 White Blood Count 14.9 TH/MM3 Red Blood Count 4.20 MIL/MM3 Hemoglobin 11.7 GM/DL Hematocrit 35.6 % Mean Corpuscular Volume 84.7 FL Mean Corpuscular Hemoglobin 27.8 PG Mean Corpuscular Hemoglobin Concent 32.8 % Red Cell Distribution Width 15.5 % Platelet Count 195 TH/MM3 Mean Platelet Volume 9.7 FL Neutrophils (%) (Auto) 79.7 % Lymphocytes (%) (Auto) 11.4 % Monocytes (%) (Auto) 8.5 % Eosinophils (%) (Auto) 0.3 % Basophils (%) (Auto) 0.1 % Neutrophils # (Auto) 11.9 TH/MM3 Lymphocytes # (Auto) 1.7 TH/MM3 Monocytes # (Auto) 1.3 TH/MM3 Eosinophils # (Auto) 0.0 TH/MM3 Basophils # (Auto) 0.0 TH/MM3 CBC Comment DIFF FINAL Differential Comment Prothrombin Time 11.4 SEC Prothromb Time International Ratio 1.1 RATIO Blood Urea Nitrogen 34 MG/DL Creatinine 1.07 MG/DL Random Glucose 140 MG/DL Calcium Level 8.4 MG/DL Magnesium Level 2.8 MG/DL Sodium Level 140 MEQ/L Potassium Level 4.3 MEQ/L Chloride Level 104 MEQ/L Carbon Dioxide Level 27.2 MEQ/L Anion Gap 9 MEQ/L Estimat Glomerular Filtration Rate 53 ML/MIN Assessment and Plan Problem List: (1) Asthma ICD Codes: J45.909 - Unspecified asthma, uncomplicated Status: Acute (2) Aortic stenosis ICD Codes: I35.0 - Nonrheumatic aortic (valve) stenosis Status: Chronic (3) S/P mitral valve repair ICD Codes: Z98.890 - Other specified postprocedural states (4) S/P AVR (aortic valve replacement) ICD Codes: Z95.2 - Presence of prosthetic heart valve (5) Mitral insufficiency ICD Codes: I34.0 - Nonrheumatic mitral (valve) insufficiency (6) Congestive heart failure (CHF) ICD Codes: I50.9 - Heart failure, unspecified Assessment and Plan 1) Severe s/p 19mm OnX mechanical valve Plan for starting Coumadin 2) Mod to severe MR s/p 28mm ring 3) Off oxygen 4) ASA/BB/Amio 5) Will see PRN, if concerns over the weekend Dr. Kaur will be covering Follow up with Dr. Brown on discharge Nimesh Cedeno DO May 23, 2017 12:07
[2017-05-23] MEDS ORDERED: POTASSIUM CHLORIDE 10 MEQ CONTROLLED RELEASE TAB PO ONE (14:00)
[2017-05-23] MEDS ORDERED: FUROSEMIDE 20 MG/2 ML VIAL IV PUSH ONE (14:00)
--- NOTE | 2017-05-23 14:51 | PD.CAR.PN ---
CVT Progress Note Subjective/Hospital Course: A 56-year-old female, history of aortic valve stenosis that has been followed by Dr. Brown for about two years. She has been having increasing shortness of breath since . She was admitted back in March for congestive heart failure, bilateral pleural effusions. She had recently, prior to that, had this shortness of breath for about six weeks. She saw her primary care physician and she was treated with a Z-Samir, nebulizer, rescue inhaler and Medrol Dosepak. BNP was 361. She did have some bilateral pleural effusions. CT of the chest at that time showed no pulmonary emboli. They put her on IV Lasix which improved her symptoms. She was then discharged home. At that time, she had an echocardiogram in the facility which showed an ejection fraction of 50%, mild to moderate aortic valve stenosis, an aortic valve area of 0.8, trace aortic insufficiency, no tricuspid regurgitation. We were consulted after she underwent elective cardiac cath which showed very minimal 20% disease in the distal LAD, 10% in the circ, right-sided heart pressures include RA pressures of 10, RV pressure of 38/9, PA pressures of 38/26, a wedge pressure of 32. She returned for elective surgery PAST MEDICAL HISTORY: Aortic stenosis with a worsening aortic valve area, Asthma, Cardiomegaly, Recent CHF, Dyspnea surgery 05/21: Aortic Valve Replacement with a 19 mm On-X Mechanical Aortic Valve, Mitral Valve Repair with a 28 mm Profile 3D Annuloplasty Ring. crystalloid 1800cc, cell saver 83, EBL 1000cc 05/22 weaned of partial NRB mask, now on 50% VM dose of IV lasix given, hx of asthma , Singulair started on amiodarone, eval to start home coreg in am will need to start coumadin after chest tubes out, goal of 2 ( Lifetime) eval later today for transfer to stepdown 05/23 now on room air give additional dose of lasix today will need to start coumadin as soon as chest tube out drained 200cc/12 hrs Objective: GENERAL: A&O x 3, feels fair SKIN: Warm and dry. prevena in place HEAD: Normocephalic. EYES: No scleral icterus. No injection or drainage. NECK: Supple, trachea midline. No JVD or lymphadenopathy. CARDIOVASCULAR: Regular rate and rhythm without murmurs, gallops, or rubs. RESPIRATORY: Breath sounds equal bilaterally. No accessory muscle use. diminished in bases, few crackles / chest tube no air leak / drained 200cc/ 12 hrs GASTROINTESTINAL: Abdomen soft, non-tender, nondistended. MUSCULOSKELETAL: No cyanosis, or edema. BACK: Nontender without obvious deformity. No CVA tenderness. Vital Signs Date Time Temp Pulse Resp B/P (MAP) Pulse Ox O2 Delivery O2 Flow Rate FiO2 05/23/17 14:00 92 05/23/17 13:00 92 05/23/17 12:00 96 05/23/17 11:00 94 05/23/17 11:00 97.4 97 18 114/68 (83) 93 05/23/17 11:00 93 Room Air 05/23/17 10:00 95 05/23/17 09:00 100 05/23/17 08:00 90 05/23/17 08:00 93 Room Air 05/23/17 08:00 97.9 94 16 126/78 (94) 93 05/23/17 07:31 Nasal Cannula 05/23/17 07:00 88 05/23/17 06:32 91 05/23/17 05:21 94 05/23/17 04:12 95 05/23/17 03:20 98.4 80 21 139/74 (95) 97 05/23/17 03:20 Nasal Cannula 2.00 05/23/17 03:13 85 05/23/17 02:00 85 05/22/17 23:00 98.0 96 14 117/80 (92) 96 05/22/17 23:00 96 05/22/17 23:00 96 Nasal Cannula 3.00 05/22/17 22:31 14 05/22/17 20:54 99 Nasal Cannula 3.00 05/22/17 19:00 99 Nasal Cannula 3.00 05/22/17 19:00 98.0 96 14 138/95 (109) 96 05/22/17 19:00 96 05/22/17 16:00 97.9 93 18 121/70 (87) 98 05/22/17 15:00 98.1 93 20 143/90 (107) 99 05/22/17 15:00 93 05/22/17 15:00 99 Partial Non-Rebreather 10.00 Labs: Laboratory Tests Test 05/23/17 04:10 White Blood Count 14.9 TH/MM3 (4.0-11.0) Red Blood Count 4.20 MIL/MM3 (4.00-5.30) Hemoglobin 11.7 GM/DL (11.6-15.3) Hematocrit 35.6 % (35.0-46.0) Mean Corpuscular Volume 84.7 FL (80.0-100.0) Mean Corpuscular Hemoglobin 27.8 PG (27.0-34.0) Mean Corpuscular Hemoglobin Concent 32.8 % (32.0-36.0) Red Cell Distribution Width 15.5 % (11.6-17.2) Platelet Count 195 TH/MM3 (150-450) Mean Platelet Volume 9.7 FL (7.0-11.0) Neutrophils (%) (Auto) 79.7 % (16.0-70.0) Lymphocytes (%) (Auto) 11.4 % (9.0-44.0) Monocytes (%) (Auto) 8.5 % (0.0-8.0) Eosinophils (%) (Auto) 0.3 % (0.0-4.0) Basophils (%) (Auto) 0.1 % (0.0-2.0) Neutrophils # (Auto) 11.9 TH/MM3 (1.8-7.7) Lymphocytes # (Auto) 1.7 TH/MM3 (1.0-4.8) Monocytes # (Auto) 1.3 TH/MM3 (0-0.9) Eosinophils # (Auto) 0.0 TH/MM3 (0-0.4) Basophils # (Auto) 0.0 TH/MM3 (0-0.2) CBC Comment DIFF FINAL Differential Comment Prothrombin Time 11.4 SEC (9.8-11.6) Prothromb Time International Ratio 1.1 RATIO Blood Urea Nitrogen 34 MG/DL (7-18) Creatinine 1.07 MG/DL (0.50-1.00) Random Glucose 140 MG/DL (74-106) Calcium Level 8.4 MG/DL (8.5-10.1) Magnesium Level 2.8 MG/DL (1.5-2.5) Sodium Level 140 MEQ/L (136-145) Potassium Level 4.3 MEQ/L (3.5-5.1) Chloride Level 104 MEQ/L (98-107) Carbon Dioxide Level 27.2 MEQ/L (21.0-32.0) Anion Gap 9 MEQ/L (5-15) Estimat Glomerular Filtration Rate 53 ML/MIN (>89) Result Diagram: 05/23/1740905/23/17409 Telemetry: NSR (1) Asthma (2) Aortic stenosis (3) S/P mitral valve repair (4) S/P AVR (aortic valve replacement) Plan: will need to start coumadin LUIS when chest tubes out goal 2.0 ( ON-X) valve pulm toileting diuresis BB PT CM for HHC (5) Mitral insufficiency (6) Congestive heart failure (CHF) Plan: additional diuresis today Estella Ellison May 23, 2017 14:51
[2017-05-23] MEDS: SENNOSIDES 8.6 MG TAB PO SCH (20:49)
[2017-05-23] MEDS: MONTELUKAST SODIUM 10 MG TAB PO SCH (20:50)
[2017-05-24] VITALS (30 sets, daily range): BP systolic 92–132; BP diastolic 54–79; PULSE 70–96; RESP 17–19; TEMP 98–98.2; O2SAT 94–99
[2017-05-24] MEDS: PANTOPRAZOLE SOD 40 MG DELAYED RELEASE TAB PO SCH (05:49)
[2017-05-24 06:11] LABS: BASOPHIL % 0.2 % (0.0-2.0); EOSINOPHIL # 0.1 TH/MM3 (0-0.4); EOSINOPHIL % 1.3 % (0.0-4.0); HEMATOCRIT 31.6 % (35.0-46.0); HEMOGLOBIN 10.4 GM/DL (11.6-15.3); LYMPH % 18.5 % (9.0-44.0); LYMPHOCYTE # 2.1 TH/MM3 (1.0-4.8); MEAN CELL VOLUME 84.5 FL (80.0-100.0); MEAN CORPUSCULAR HEMOGLOBIN 27.8 PG (27.0-34.0); MEAN CORPUSCULAR HGB CONC 32.9 % (32.0-36.0); MEAN PLATELET VOLUME 9.6 FL (7.0-11.0); MONO % 8.9 % (0.0-8.0); NEUT % 71.1 % (16.0-70.0); PLATELET COUNT 155 TH/MM3 (150-450); RED BLOOD COUNT 3.74 MIL/MM3 (4.00-5.30); RED CELL DISTRIBUTION WIDTH 15.8 % (11.6-17.2); WHITE BLOOD COUNT 11.3 TH/MM3 (4.0-11.0)
[2017-05-24 06:14] LABS: INTERNATIONAL NORMALIZED RATIO 1.1 RATIO; PROTHROMBIN TIME - PATIENT 10.7 SEC (9.8-11.6)
[2017-05-24 06:34] LABS: BICARBONATE 31.2 MEQ/L (21.0-32.0); CALCIUM 8.2 MG/DL (8.5-10.1); CREATININE 0.6 MG/DL (0.50-1.00); MAGNESIUM 2.8 MG/DL (1.5-2.5)
[2017-05-24] MEDS: INSULIN ASPART SUPPLEMENTAL SCALE SQ SCH ×4 (08:00→20:39)
[2017-05-24] MEDS: RESP: ALBUTEROL 2.5 MG/IPRATROPIUM 0.5 MG NEB (SCH) NEB (08:22)
[2017-05-24] MEDS: DOCUSATE SODIUM 100 MG CAP PO SCH ×2 (08:59→20:38)
[2017-05-24] MEDS: ASPIRIN 81 MG CHEW TAB PO SCH (08:59)
[2017-05-24] MEDS: MAGNESIUM HYDROXIDE SUSP 30 ML CUP PO SCH (08:59)
[2017-05-24] MEDS: POTASSIUM CHLORIDE 10 MEQ CONTROLLED RELEASE TAB PO SCH (08:59)
[2017-05-24] MEDS: AMIODARONE 200 MG TAB PO SCH ×2 (08:59→20:38)
[2017-05-24] MEDS: MULTIVITAMINS/MINERALS THERAPEUTIC TAB PO SCH (08:59)
[2017-05-24] MEDS: FUROSEMIDE 20 MG TAB PO SCH (08:59)
[2017-05-24] MEDS: METOPROLOL TARTRATE 25 MG TAB PO SCH ×2 (08:59→20:38)
[2017-05-24] MEDS ORDERED: SOD PHOSPHATE/SOD BIPHOSPHATE (ADULT) ENEMA 133ML RECTAL PRN (09:00)
[2017-05-24] MEDS: POLYETHYLENE GLYCOL 17 GM PKG PO SCH (09:00)
[2017-05-24] MEDS: SODIUM CHLORIDE 0.9% FLUSH 10 ML FLUSH IV FLUSH SCH ×2 (09:00→20:39)
--- NOTE | 2017-05-24 10:59 | PD.CAR.PN ---
CVT Progress Note CVT: POD #: 3 Subjective/Hospital Course: A 56-year-old female, history of aortic valve stenosis that has been followed by Dr. Brown for about two years. She has been having increasing shortness of breath since . She was admitted back in March for congestive heart failure, bilateral pleural effusions. She had recently, prior to that, had this shortness of breath for about six weeks. She saw her primary care physician and she was treated with a Z-Samir, nebulizer, rescue inhaler and Medrol Dosepak. BNP was 361. She did have some bilateral pleural effusions. CT of the chest at that time showed no pulmonary emboli. They put her on IV Lasix which improved her symptoms. She was then discharged home. At that time, she had an echocardiogram in the facility which showed an ejection fraction of 50%, mild to moderate aortic valve stenosis, an aortic valve area of 0.8, trace aortic insufficiency, no tricuspid regurgitation. We were consulted after she underwent elective cardiac cath which showed very minimal 20% disease in the distal LAD, 10% in the circ, right-sided heart pressures include RA pressures of 10, RV pressure of 38/9, PA pressures of 38/26, a wedge pressure of 32. She returned for elective surgery PAST MEDICAL HISTORY: Aortic stenosis with a worsening aortic valve area, Asthma, Cardiomegaly, Recent CHF, Dyspnea surgery 05/21: Aortic Valve Replacement with a 19 mm On-X Mechanical Aortic Valve, Mitral Valve Repair with a 28 mm Profile 3D Annuloplasty Ring. crystalloid 1800cc, cell saver 83, EBL 1000cc 05/22 weaned of partial NRB mask, now on 50% VM dose of IV lasix given, hx of asthma , Singulair started on amiodarone, eval to start home coreg in am will need to start coumadin after chest tubes out, goal of 2 ( Lifetime) eval later today for transfer to stepdown 05/23 now on room air give additional dose of lasix today will need to start coumadin as soon as chest tube out drained 200cc/12 hrs 05/24/17 Doing well. c/o incisional pain Objective: Vital Signs Date Time Temp Pulse Resp B/P (MAP) Pulse Ox O2 Delivery O2 Flow Rate FiO2 05/24/17 10:00 71 05/24/17 09:00 96 05/24/17 08:22 96 21 05/24/17 08:00 92 05/24/17 07:19 98.2 91 18 103/65 (78) 95 05/24/17 07:19 95 Room Air 05/24/17 07:00 90 05/24/17 06:11 89 05/24/17 05:36 92 05/24/17 04:07 87 05/24/17 03:45 94 Room Air 05/24/17 03:45 98.1 91 17 115/59 (77) 94 05/24/17 03:16 87 05/24/17 02:02 88 05/24/17 01:18 90 05/24/17 00:38 92 05/23/17 23:15 96 Room Air 05/23/17 23:15 97.8 96 18 122/64 (83) 96 05/23/17 23:00 91 05/23/17 22:30 90 05/23/17 22:05 96 21 05/23/17 21:15 94 05/23/17 20:23 94 05/23/17 19:35 98.9 91 17 101/64 (76) 92 05/23/17 19:35 92 Room Air 05/23/17 19:35 91 05/23/17 18:00 92 05/23/17 17:00 92 05/23/17 16:00 93 05/23/17 15:00 93 Room Air 05/23/17 15:00 98.3 98 16 107/58 (74) 93 05/23/17 15:00 92 05/23/17 14:00 92 05/23/17 13:00 92 05/23/17 12:00 96 05/23/17 11:00 94 05/23/17 11:00 97.4 97 18 114/68 (83) 93 05/23/17 11:00 93 Room Air Labs: Laboratory Tests Test 05/24/17 05:00 White Blood Count 11.3 TH/MM3 (4.0-11.0) Red Blood Count 3.74 MIL/MM3 (4.00-5.30) Hemoglobin 10.4 GM/DL (11.6-15.3) Hematocrit 31.6 % (35.0-46.0) Mean Corpuscular Volume 84.5 FL (80.0-100.0) Mean Corpuscular Hemoglobin 27.8 PG (27.0-34.0) Mean Corpuscular Hemoglobin Concent 32.9 % (32.0-36.0) Red Cell Distribution Width 15.8 % (11.6-17.2) Platelet Count 155 TH/MM3 (150-450) Mean Platelet Volume 9.6 FL (7.0-11.0) Neutrophils (%) (Auto) 71.1 % (16.0-70.0) Lymphocytes (%) (Auto) 18.5 % (9.0-44.0) Monocytes (%) (Auto) 8.9 % (0.0-8.0) Eosinophils (%) (Auto) 1.3 % (0.0-4.0) Basophils (%) (Auto) 0.2 % (0.0-2.0) Neutrophils # (Auto) 8.0 TH/MM3 (1.8-7.7) Lymphocytes # (Auto) 2.1 TH/MM3 (1.0-4.8) Monocytes # (Auto) 1.0 TH/MM3 (0-0.9) Eosinophils # (Auto) 0.1 TH/MM3 (0-0.4) Basophils # (Auto) 0.0 TH/MM3 (0-0.2) CBC Comment DIFF FINAL Differential Comment Prothrombin Time 10.7 SEC (9.8-11.6) Prothromb Time International Ratio 1.1 RATIO Blood Urea Nitrogen 26 MG/DL (7-18) Creatinine 0.60 MG/DL (0.50-1.00) Random Glucose 108 MG/DL (74-106) Calcium Level 8.2 MG/DL (8.5-10.1) Magnesium Level 2.8 MG/DL (1.5-2.5) Sodium Level 138 MEQ/L (136-145) Potassium Level 4.0 MEQ/L (3.5-5.1) Chloride Level 102 MEQ/L (98-107) Carbon Dioxide Level 31.2 MEQ/L (21.0-32.0) Anion Gap 5 MEQ/L (5-15) Estimat Glomerular Filtration Rate 103 ML/MIN (>89) Result Diagram: 05/24/17 0500 05/24/17 0500 Cardiovascular: RRR Telemetry: NSR Pulmonary: CTA GI/: NABS, NT Incision: dry and intact Plan: Remove chest tubes Coumadin Daily INR Encourage ambulation Stim BM Cont BB, ASA (1) Asthma (2) Aortic stenosis (3) S/P mitral valve repair (4) S/P AVR (aortic valve replacement) Plan: will need to start coumadin LUIS when chest tubes out goal 2.0 ( ON-X) valve pulm toileting diuresis BB PT CM for HHC (5) Mitral insufficiency (6) Congestive heart failure (CHF) Plan: additional diuresis today Jen Arcos MD May 24, 2017 10:59
[2017-05-24] MEDS: WARFARIN SOD 5 MG TAB PO SCH (16:25)
[2017-05-24] MEDS: MONTELUKAST SODIUM 10 MG TAB PO SCH (20:38)
[2017-05-24] MEDS: SENNOSIDES 8.6 MG TAB PO SCH (20:38)
[2017-05-25] VITALS (29 sets, daily range): BP systolic 94–105; BP diastolic 56–66; PULSE 85–98; RESP 18–21; TEMP 98–98.4; O2SAT 95–97
[2017-05-25] MEDS: PANTOPRAZOLE SOD 40 MG DELAYED RELEASE TAB PO SCH (05:47)
[2017-05-25 07:23] LABS: INTERNATIONAL NORMALIZED RATIO 1.2 RATIO; PROTHROMBIN TIME - PATIENT 12.1 SEC (9.8-11.6)
[2017-05-25] MEDS: INSULIN ASPART SUPPLEMENTAL SCALE SQ SCH ×4 (07:53→20:30)
[2017-05-25] MEDS: ASPIRIN 81 MG CHEW TAB PO SCH (08:09)
[2017-05-25] MEDS: DOCUSATE SODIUM 100 MG CAP PO SCH ×2 (08:10→20:29)
[2017-05-25] MEDS: MAGNESIUM HYDROXIDE SUSP 30 ML CUP PO SCH (08:10)
[2017-05-25] MEDS: POTASSIUM CHLORIDE 10 MEQ CONTROLLED RELEASE TAB PO SCH (08:10)
[2017-05-25] MEDS: FUROSEMIDE 20 MG TAB PO SCH (08:10)
[2017-05-25] MEDS: METOPROLOL TARTRATE 25 MG TAB PO SCH ×2 (08:10→20:30)
[2017-05-25] MEDS: AMIODARONE 200 MG TAB PO SCH ×2 (08:10→20:30)
[2017-05-25] MEDS: SODIUM CHLORIDE 0.9% FLUSH 10 ML FLUSH IV FLUSH SCH ×2 (08:10→20:29)
[2017-05-25] MEDS: MULTIVITAMINS/MINERALS THERAPEUTIC TAB PO SCH (08:10)
[2017-05-25] MEDS: POLYETHYLENE GLYCOL 17 GM PKG PO SCH (08:10)
--- NOTE | 2017-05-25 11:18 | PD.CAR.PN ---
CVT Progress Note Subjective/Hospital Course: A 56-year-old female, history of aortic valve stenosis that has been followed by Dr. Brown for about two years. She has been having increasing shortness of breath since . She was admitted back in March for congestive heart failure, bilateral pleural effusions. She had recently, prior to that, had this shortness of breath for about six weeks. She saw her primary care physician and she was treated with a Z-Samir, nebulizer, rescue inhaler and Medrol Dosepak. BNP was 361. She did have some bilateral pleural effusions. CT of the chest at that time showed no pulmonary emboli. They put her on IV Lasix which improved her symptoms. She was then discharged home. At that time, she had an echocardiogram in the facility which showed an ejection fraction of 50%, mild to moderate aortic valve stenosis, an aortic valve area of 0.8, trace aortic insufficiency, no tricuspid regurgitation. We were consulted after she underwent elective cardiac cath which showed very minimal 20% disease in the distal LAD, 10% in the circ, right-sided heart pressures include RA pressures of 10, RV pressure of 38/9, PA pressures of 38/26, a wedge pressure of 32. She returned for elective surgery PAST MEDICAL HISTORY: Aortic stenosis with a worsening aortic valve area, Asthma, Cardiomegaly, Recent CHF, Dyspnea surgery 05/21: Aortic Valve Replacement with a 19 mm On-X Mechanical Aortic Valve, Mitral Valve Repair with a 28 mm Profile 3D Annuloplasty Ring. crystalloid 1800cc, cell saver 83, EBL 1000cc 05/22 weaned of partial NRB mask, now on 50% VM dose of IV lasix given, hx of asthma , Singulair started on amiodarone, eval to start home coreg in am will need to start coumadin after chest tubes out, goal of 2 ( Lifetime) eval later today for transfer to stepdown 05/23 now on room air give additional dose of lasix today will need to start coumadin as soon as chest tube out drained 200cc/12 hrs 05/24/17 Doing well. c/o incisional pain 05/25/17 No complaints, doing well Weight up ~7 kg Objective: Vital Signs Date Time Temp Pulse Resp B/P (MAP) Pulse Ox O2 Delivery O2 Flow Rate FiO2 05/25/17 10:00 91 05/25/17 09:00 87 05/25/17 08:00 91 05/25/17 07:18 96 Room Air 05/25/17 07:18 98.0 92 18 105/66 (79) 96 05/25/17 07:00 90 05/25/17 06:06 98 05/25/17 05:50 95 05/25/17 04:09 87 05/25/17 03:55 98.2 88 20 105/63 (77) 95 05/25/17 03:55 Room Air 05/25/17 03:27 88 05/25/17 02:08 85 05/25/17 01:10 86 05/25/17 00:19 87 05/24/17 23:54 89 05/24/17 23:54 Room Air 05/24/17 23:54 98.0 78 19 132/79 (96) 99 05/24/17 22:09 77 05/24/17 21:20 71 05/24/17 20:16 94 05/24/17 20:10 72 05/24/17 19:15 98.2 81 18 93/60 (71) 94 05/24/17 19:15 79 05/24/17 19:15 Room Air 05/24/17 18:00 73 05/24/17 17:00 72 05/24/17 16:00 70 05/24/17 15:04 96 Room Air 05/24/17 15:03 98.1 72 18 92/54 (67) 96 05/24/17 15:00 71 05/24/17 14:00 71 05/24/17 13:00 72 05/24/17 12:00 77 05/24/17 11:19 96 Room Air 05/24/17 11:17 98.1 73 18 103/66 (78) 96 Labs: Laboratory Tests Test 05/25/17 06:32 Prothrombin Time 12.1 SEC (9.8-11.6) Prothromb Time International Ratio 1.2 RATIO Result Diagram: 05/24/17 0500 05/24/17 0500 Cardiovascular: RRR Telemetry: NSR Pulmonary: CTA GI/: NABS, NT Incision: dry and intact Plan: Diurese CXR in AM Stim Bm Coumadin Anticipate d/c tomorrow (1) Asthma (2) Aortic stenosis (3) S/P mitral valve repair (4) S/P AVR (aortic valve replacement) Plan: will need to start coumadin LUIS when chest tubes out goal 2.0 ( ON-X) valve pulm toileting diuresis BB PT CM for HHC (5) Mitral insufficiency (6) Congestive heart failure (CHF) Plan: additional diuresis today Jen Arcos MD May 25, 2017 11:18
[2017-05-25] MEDS: WARFARIN SOD 5 MG TAB PO SCH (16:27)
[2017-05-25] MEDS: FUROSEMIDE 40 MG/4 ML VIAL IV PUSH SCH (16:27)
[2017-05-25] MEDS: SENNOSIDES 8.6 MG TAB PO SCH (20:29)
[2017-05-25] MEDS: MONTELUKAST SODIUM 10 MG TAB PO SCH (20:30)
[2017-05-26] VITALS (17 sets, daily range): BP systolic 98–103; BP diastolic 60–68; PULSE 84–92; RESP 18–19; TEMP 98.2–98.7; O2SAT 93–96
--- NOTE | 2017-05-26 04:45 | RADRPT ---
EXAM DATE/TIME: 05/26/2017 03:51 [facility] COMPARISON: CHEST SINGLE AP, May 22, 2017, 4:09. INDICATIONS : Shortness of breath, possible pneumothorax. MEDICAL HISTORY : Arterial stenosis Asthma SURGICAL HISTORY : Tonsillectomy. section. CABG. AVR ENCOUNTER: Subsequent ACUITY: 1 week PAIN SCORE: 0/10 LOCATION: Bilateral chest FINDINGS: A single view of the chest demonstrates the lungs to be symmetrically aerated without evidence of mas s, infiltrate or effusion. The heart size remains at the upper limits of normal with no perihilar ed jacob. Osseous structures are intact. The patient is status post median sternotomy and there is an seema ficial heart valve in place. The nasogastric tube and right-sided central venous line have been remov ed. The mediastinal chest tubes have been removed as well. CONCLUSION: 1. Interval removal of mediastinal chest tubes with no pneumothorax. 2. Status post median sternotomy with artificial heart valve again noted. 3. Interval resolution of left lower lobe infiltrate and left effusion Williams Medina MD on May 26, 2017 at 4:42 Board Certified Radiologist. This report was verified electronically.
[2017-05-26 05:24] LABS: PROTHROMBIN TIME - PATIENT 20.4 SEC (9.8-11.6)
[2017-05-26] MEDS: PANTOPRAZOLE SOD 40 MG DELAYED RELEASE TAB PO SCH (06:13)
[2017-05-26] MEDS: INSULIN ASPART SUPPLEMENTAL SCALE SQ SCH ×2 (08:00→11:50)
[2017-05-26] MEDS: MULTIVITAMINS/MINERALS THERAPEUTIC TAB PO SCH (08:03)
[2017-05-26] MEDS: ASPIRIN 81 MG CHEW TAB PO SCH (08:03)
[2017-05-26] MEDS: METOPROLOL TARTRATE 25 MG TAB PO SCH (08:03)
[2017-05-26] MEDS: FUROSEMIDE 40 MG/4 ML VIAL IV PUSH SCH (08:03)
[2017-05-26] MEDS: POTASSIUM CHLORIDE 10 MEQ CONTROLLED RELEASE TAB PO SCH (08:03)
[2017-05-26] MEDS: SODIUM CHLORIDE 0.9% FLUSH 10 ML FLUSH IV FLUSH SCH (08:04)
[2017-05-26] MEDS: DOCUSATE SODIUM 100 MG CAP PO SCH (08:04)
[2017-05-26] MEDS: MAGNESIUM HYDROXIDE SUSP 30 ML CUP PO SCH (08:04)
[2017-05-26] MEDS: POLYETHYLENE GLYCOL 17 GM PKG PO SCH (08:04)
[2017-05-26] MEDS: AMIODARONE 200 MG TAB PO SCH (08:04)
[2017-05-26] MEDS ORDERED: COUM5TAB PO (12:29)
[2017-05-26] MEDS ORDERED: THERM PO (12:29)
[2017-05-26] MEDS ORDERED: AMIO200T PO (12:29)
[2017-05-26] MEDS ORDERED: HYDR-3516 PO (12:29)
[2017-05-26] MEDS ORDERED: DOCU1CAP39 PO (12:29)
[2017-05-26] MEDS ORDERED: ASPI81 PO (12:29)
--- NOTE | 2017-05-26 12:30 | PD.CARD.PN ---
Subjective Subjective Remarks Doing well, up to chair Incisional chest pain Up and ambulating Objective Medications Current Medications Medications (Trade) Dose Ordered Sig/Agnes Route Start Time Stop Time Status Last Admin (NS Flush) 2 ml BID IV FLUSH 05/21/17 21:00 05/26/17 08:04 (NS Flush) 2 ml UNSCH PRN IV FLUSH 05/21/17 13:30 (Aspirin Chew) 81 mg DAILY PO 05/22/17 09:00 05/26/17 08:03 (Protonix) 40 mg DAILY@06 PO 05/22/17 06:00 05/26/17 06:13 (Cordarone) 400 mg Q12HR PO 05/21/17 21:00 05/26/17 08:04 (Tylenol) 650 mg Q4H PRN PO 05/21/17 13:30 (Keene 5-325 Mg) 1 tab Q3H PRN PO 05/21/17 13:30 05/23/17 05:15 (Zofran Inj) 4 mg Q6H PRN IV PUSH 05/21/17 13:30 05/22/17 12:28 (Sodium Bicarbonate 8.4% Inj) 50 meq UNSCH PRN IV PUSH 05/21/17 13:30 (Duoneb Neb) 1 ampule Q2HR NEB PRN NEB 05/21/17 13:30 (Colace) 100 mg BID PO 05/22/17 21:00 05/25/17 20:29 (Theragran M Tab) 1 tab DAILY PO 05/22/17 09:00 05/26/17 08:03 (Milk Of Magnesia Liq) 30 ml DAILY PO 05/22/17 09:00 05/23/17 09:36 (Dulcolax Supp) 10 mg UNSCH PRN RECTAL 05/22/17 09:00 (Miralax) 17 gm DAILY PO 05/23/17 09:00 05/23/17 09:36 (Senokot) 8.6 mg HS PO 05/22/17 21:00 05/25/17 20:29 (Fleets Enema (Adult)) 118 ml UNSCH PRN RECTAL 05/24/17 09:00 (D50w (Vial) Inj) 50 ml UNSCH PRN IV PUSH 05/22/17 09:00 (Glucagon Inj) 1 mg UNSCH PRN OTHER 05/22/17 09:00 (Singulair) 10 mg HS PO 05/22/17 21:00 05/25/17 20:30 (KCl) 10 meq DAILY PO 05/23/17 09:00 05/26/17 08:03 (NovoLOG SUPPLEMENTAL SCALE) 1 ACHS SLIDING SCALE SQ 05/23/17 12:00 05/24/17 11:57 (Lopressor) 12.5 mg Q12HR PO 05/23/17 11:00 05/26/17 08:03 (Coumadin) 5 mg DAILY@1600 PO 05/24/17 16:00 05/25/17 16:27 (Lasix Inj) 40 mg BID@,18 IV PUSH 05/25/17 18:00 05/26/17 08:03 Vital Signs / I&O Vital Signs Date Time Temp Pulse Resp B/P (MAP) Pulse Ox O2 Delivery O2 Flow Rate FiO2 05/26/17 12:00 86 05/26/17 11:09 96 Room Air 05/26/17 11:08 98.7 87 18 99/60 (73) 96 05/26/17 11:00 85 05/26/17 10:00 87 05/26/17 09:00 92 05/26/17 08:00 90 05/26/17 07:28 93 21 05/26/17 07:23 98.2 90 18 103/68 (80) 96 05/26/17 07:04 96 Room Air 05/26/17 07:00 88 05/26/17 05:12 91 05/26/17 04:02 90 05/26/17 03:50 Room Air 05/26/17 03:50 89 05/26/17 03:50 98.2 89 19 98/61 (73) 95 05/26/17 02:23 85 05/26/17 01:18 87 05/26/17 00:15 87 05/25/17 23:10 90 05/25/17 23:10 Room Air 05/25/17 23:10 98.1 97 18 95/60 (72) 97 05/25/17 22:53 90 05/25/17 21:00 92 05/25/17 20:52 21 05/25/17 20:20 94 05/25/17 19:20 Room Air 05/25/17 19:20 92 05/25/17 19:20 98.3 94 21 99/61 (74) 96 05/25/17 18:00 96 05/25/17 17:00 90 05/25/17 16:00 94 05/25/17 15:46 96 Room Air 05/25/17 15:12 98.3 89 18 94/56 (69) 95 05/25/17 15:00 92 05/25/17 14:00 90 05/25/17 13:00 93 05/25/17 12:42 95 21 I/O 05/25/17 05/25/17 05/25/17 05/26/17 05/26/17 05/26/17 07:00 15:00 23:00 07:00 15:00 23:00 Intake Total 480 ml 720 ml 330 ml Output Total 400 ml Balance 80 ml 720 ml 330 ml Intake Oral 480 ml 720 ml 330 ml Output Urine Total 400 ml # Voids 1 3 3 # Bowel Movements 0 Physical Exam GENERAL: NAD, AAOx3 SKIN: Warm and dry. HEAD: Atraumatic. Normocephalic. EYES: Pupils equal and round. No scleral icterus. No injection or drainage. ENT: No nasal bleeding or discharge. Mucous membranes pink and moist. NECK: Trachea midline. No JVD. CARDIOVASCULAR: Regular rate and rhythm. Mechanical click crisp RESPIRATORY: No accessory muscle use. Decreased breath sounds bilaterally GASTROINTESTINAL: Abdomen soft, non-tender, nondistended. Hepatic and splenic margins not palpable. MUSCULOSKELETAL: 1+ pitting edema NEUROLOGICAL: Awake and alert. No obvious cranial nerve deficits. Motor grossly within normal limits. Five out of 5 muscle strength in the arms and legs. Normal speech. PSYCHIATRIC: Appropriate mood and affect; insight and judgment normal. Laboratory Laboratory Tests Test 05/26/17 04:30 Prothrombin Time 20.4 SEC Prothromb Time International Ratio 2.0 RATIO Imaging Last 24 hours Impressions Chest X-Ray 05/26/17 0600 Signed Impressions: Service Date/Time: Friday, May 26, 2017 03:51 - CONCLUSION: 1. Interval removal of mediastinal chest tubes with no pneumothorax. 2. Status post median sternotomy with artificial heart valve again noted. 3. Interval resolution of left lower lobe infiltrate and left effusion Williams Medina MD Assessment and Plan Problem List: (1) Asthma ICD Codes: J45.909 - Unspecified asthma, uncomplicated Status: Acute (2) Aortic stenosis ICD Codes: I35.0 - Nonrheumatic aortic (valve) stenosis Status: Chronic (3) S/P mitral valve repair ICD Codes: Z98.890 - Other specified postprocedural states (4) S/P AVR (aortic valve replacement) ICD Codes: Z95.2 - Presence of prosthetic heart valve (5) Mitral insufficiency ICD Codes: I34.0 - Nonrheumatic mitral (valve) insufficiency (6) Congestive heart failure (CHF) ICD Codes: I50.9 - Heart failure, unspecified Assessment and Plan 1) Severe s/p 19mm OnX mechanical valve On Coumadin 2) Mod to severe MR s/p 28mm ring 3) Off oxygen 4) ASA/BB/Amio 5) Cardiovascularly stable for discharge Follow up with Dr. Brown on discharge Nimesh Cedeno DO May 26, 2017 12:30
--- NOTE | 2017-05-26 12:49 | HHI.DS ---
Discharge Summary Admission Date May 21, 2017 at 07:29 Discharge Date: May 26, 2017 Admitting Diagnosis PREOPERATIVE DIAGNOSES 1. Severe Aortic Stenosis. 2. Moderate Aortic Insufficiency 3. Severe Mitral Insufficiency (1) Aortic stenosis Diagnosis: Principal ICD Codes: I35.0 - Nonrheumatic aortic (valve) stenosis Status: Chronic (2) Mitral insufficiency Diagnosis: Principal ICD Codes: I34.0 - Nonrheumatic mitral (valve) insufficiency (3) Congestive heart failure (CHF) Diagnosis: Principal ICD Codes: I50.9 - Heart failure, unspecified (4) S/P mitral valve repair Diagnosis: Secondary ICD Codes: Z98.890 - Other specified postprocedural states (5) S/P AVR (aortic valve replacement) Diagnosis: Secondary ICD Codes: Z95.2 - Presence of prosthetic heart valve Procedures 1. Aortic Valve Replacement with a 19 mm On-X Mechanical Aortic Valve 2. Mitral Valve Repair with a 28 mm Profile 3D Annuloplasty Ring. Surgeon: Veronika Hernández Case Coordinator(s): Dc Torrez Operation and Findings: Same SURGICAL PROCEDURE 1. Aortic Valve Replacement with a 19 mm On-X Mechanical Aortic Valve 2. Mitral Valve Repair with a 28 mm Profile 3D Annuloplasty Ring. Brief History A 56-year-old female, history of aortic valve stenosis that has been followed by Dr. Brown for about two years. She has been having increasing shortness of breath since . She was admitted back in March for congestive heart failure, bilateral pleural effusions. She had recently, prior to that, had this shortness of breath for about six weeks. She saw her primary care physician and she was treated with a Z-Samir, nebulizer, rescue inhaler and Medrol Dosepak. BNP was 361. She did have some bilateral pleural effusions. CT of the chest at that time showed no pulmonary emboli. They put her on IV Lasix which improved her symptoms. She was then discharged home. At that time, she had an echocardiogram in the facility which showed an ejection fraction of 50%, mild to moderate aortic valve stenosis, an aortic valve area of 0.8, trace aortic insufficiency, no tricuspid regurgitation. We were consulted after she underwent elective cardiac cath which showed very minimal 20% disease in the distal LAD, 10% in the circ, right-sided heart pressures include RA pressures of 10, RV pressure of 38/9, PA pressures of 38/26, a wedge pressure of 32. She returned for elective surgery PAST MEDICAL HISTORY: Aortic stenosis with a worsening aortic valve area, Asthma, Cardiomegaly, Recent CHF, Dyspnea CBC/BMP: 05/24/17 0500 05/24/17 0500 Significant Findings Laboratory Tests Test 05/24/17 05:00 05/25/17 06:32 05/26/17 04:30 White Blood Count 11.3 TH/MM3 (4.0-11.0) Red Blood Count 3.74 MIL/MM3 (4.00-5.30) Hemoglobin 10.4 GM/DL (11.6-15.3) Hematocrit 31.6 % (35.0-46.0) Neutrophils (%) (Auto) 71.1 % (16.0-70.0) Monocytes (%) (Auto) 8.9 % (0.0-8.0) Neutrophils # (Auto) 8.0 TH/MM3 (1.8-7.7) Monocytes # (Auto) 1.0 TH/MM3 (0-0.9) Blood Urea Nitrogen 26 MG/DL (7-18) Random Glucose 108 MG/DL (74-106) Calcium Level 8.2 MG/DL (8.5-10.1) Magnesium Level 2.8 MG/DL (1.5-2.5) Prothrombin Time 12.1 SEC (9.8-11.6) 20.4 SEC (9.8-11.6) Imaging Last Impressions Chest X-Ray 05/26/17 0600 Signed Impressions: Service Date/Time: Friday, May 26, 2017 03:51 - CONCLUSION: 1. Interval removal of mediastinal chest tubes with no pneumothorax. 2. Status post median sternotomy with artificial heart valve again noted. 3. Interval resolution of left lower lobe infiltrate and left effusion Williams Medina MD PE at Discharge GENERAL: A&O x 3 SKIN: Warm and dry. Prevena dressing to chest HEAD: Normocephalic. EYES: No scleral icterus. No injection or drainage. NECK: Supple, trachea midline. No JVD or lymphadenopathy. CARDIOVASCULAR: Regular rate and rhythm without murmurs, gallops, or rubs. + click , mild edema lower ext RESPIRATORY: Breath sounds equal bilaterally. No accessory muscle use. GASTROINTESTINAL: Abdomen soft, non-tender, nondistended. MUSCULOSKELETAL: No cyanosis, or edema. BACK: Nontender without obvious deformity. No CVA tenderness. Hospital Course surgery 05/21: Aortic Valve Replacement with a 19 mm On-X Mechanical Aortic Valve, Mitral Valve Repair with a 28 mm Profile 3D Annuloplasty Ring. crystalloid 1800cc, cell saver 83, EBL 1000cc 05/22 weaned of partial NRB mask, now on 50% VM dose of IV lasix given, hx of asthma , Singulair started on amiodarone, eval to start home coreg in am will need to start coumadin after chest tubes out, goal of 2 ( Lifetime) eval later today for transfer to stepdown 05/23 now on room air give additional dose of lasix today will need to start coumadin as soon as chest tube out drained 200cc/12 hrs 05/24/17 Doing well. c/o incisional pain 05/25/17 No complaints, doing well Weight up ~7 kg 05/26 on room air weight improved, INR Therapeutic coumadin teaching given will dc on ASA,. coumadin Pt Condition on Discharge: Good Discharge Disposition: Disch w/ Home Health Serv Discharge Instructions DIET: Follow Instructions for: Heart Healthy Diet, Coumadin (Warfarin) Diet Activities you can perform: Full Weight Bearing, Shower Only-No Bath Activities to avoid: Strenuous Activity, Driving Additional Activity Instructio: no lifting > 10lbs Follow up Referrals: Cardiology - 4 Weeks with El Brown MD PCP Follow-up - 2 Weeks with Rosy Elliott Do Surgical - 2 Weeks with Estella Ellison New Orders: PT/INR - 2-3 Days New Medications: Amiodarone (Amiodarone) 200 Mg Tab 200 MG PO Q12HR for heart rhythm, #28 TAB 0 Refills Aspirin (Tgt Aspirin) 81 Mg Chw 81 MG PO DAILY for Blood Clot Prevention, #30 EA 2 Refills Docusate Sodium (Dok) 100 Mg Cap 100 MG PO BID for Constipation, #60 CAP 0 Refills Hydrocodone/Acetaminophen (Hydrocodone-Acetamin 5-325 mg) 5 Mg-325 Mg Tablet 1 TAB PO Q4HR PRN for PAIN SCALE 1 TO 5, #40 TAB 0 Refills Multiple Vitamins W/ Minerals (Thera M Plus) 1 Tab 1 TAB PO DAILY for multi vitamin, #30 TAB 2 Refills Warfarin (Coumadin) 5 Mg Tab 5 MG PO DAILY@1600 for Blood Clot Prevention, #30 TAB 2 Refills keep INR goal 2 next blood draw on fri for PT/INR 05/28 Continued Medications: Albuterol 18 GM Inh (Ventolin Hfa 18 GM Inh) 90 Mcg/Act Aer 2 PUFF INH Q4H PRN for SHORTNESS OF BREATH, #1 INHALER 3 Refills Carvedilol (Coreg) 3.125 Mg Tab 3.125 MG PO Q12HR for heart, #60 TAB 0 Refills Furosemide (Furosemide) 20 Mg Tab 20 MG PO DAILY for heart/ fluid, #30 TAB 0 Refills Ipratropium HFA 12.9 GM Inh (Atrovent HFA 12.9 GM Inh) 17 Mcg/Actuation Aer 2 PUFF INH TID, #1 INHALER 0 Refills Potassium Chloride ER (Klor-Con 10) 10 Meq Tab 10 MEQ PO DAILY for supplement, #30 TAB 0 Refills Estella Ellison May 26, 2017 12:49
[2017-05-26] MEDS: WARFARIN SOD 5 MG TAB PO SCH (14:06)
== END 2017-05-26 15:15 | disposition home health service (06) | DRG 221 ==
LOC: HSDC 05:27 → HSDI 07:29 → EDSTATUS 07:30 → HCVI 14:02 → HCPC 05-23 01:07
PROVIDERS: ADMIT Thoracic Surgery (Cardiothoracic Vascular Surgery); ATTEND Thoracic Surgery (Cardiothoracic Vascular Surgery)
PROC: 5A1221Z Performance of Cardiac Output, Continuous (ICD-10-PCS; 2017-05-21)
PROC: B246ZZ4 Ultrasonography of Right and Left Heart, Transesophageal (ICD-10-PCS; 2017-05-21)
PROC: 02RF0JZ Replacement of Aortic Valve with Synthetic Substitute, Open Approach (ICD-10-PCS; principal; 2017-05-21 07:16)
PROC: 02UG0JZ Supplement Mitral Valve with Synthetic Substitute, Open Approach (ICD-10-PCS; 2017-05-21 07:16)
DX: I08.0 Rheumatic disorders of both mitral and aortic valves (principal); I50.9 Heart failure, unspecified; E66.01 Morbid (severe) obesity due to excess calories; J45.909 Unspecified asthma, uncomplicated; I25.10 Atherosclerotic heart disease of native coronary artery without angina pectoris
CPT/HCPCS: 71045; 76937; 80048; 82948; 83735; 85025; 85027; 85610; 86850; 86900; 86901; 86920; 87015; 87070; 87102; 87116; 87176; 87205; 87206; 88305; 88311; 93005; 93318; 94002; 94150; 94640; 94664; 94667; 94668; C9290; J0131; J0690; J1100; J1644; J1815; J1817; J1885; J1940; J2150; J2250; J2270; J2370; J2405; J2720; J3010; J3370; J3475; J3480; J7050; J7120; P9045; P9047